=== PATIENT | female | born 1955 | race Caucasian/White ===

== ENCOUNTER → 2018-01-15 07:23 | Outpatient (CLI) | payer MEDICAID, SELFPAY ==
[2018-01-15 08:13] LABS: Alanine Aminotransferase 58 U/L (12-78); Albumin/Globulin Ratio 0.8 (1.1-1.8); Alkaline Phosphatase 135 U/L (46-116); Anion Gap 4.3 mEq/L (5-15); Aspartate Amino Transferase 64 U/L (15-37); Bilirubin,Total 0.5 mg/dL (0.2-1.0); Blood Urea Nitrogen 17 mg/dL (7-18); C-Reactive Protein 0.9 mg/L (0.0-0.9); Calcium 8.4 mg/dL (8.5-10.1); Carbon Dioxide 29 mmol/L (21.0-32.0); Chloride 104 mmol/L (98-107); Creatinine,Serum 1.06 mg/dL (0.55-1.02); Estimated Glomerular Filt Rate 52 ml/min (>60); GFR (African American) 63 ML/MIN (>60); Globulin 3.9 gm/dl (1.3-3.2); Glucose 111 mg/dL (74-106); Potassium 3.3 mmoL/L (3.5-5.1); Sodium 134 mmol/L (136-145); Total Protein,Serum 6.9 gm/dL (6.4-8.2)
[2018-01-15 08:21] LABS: Basophils % 0.6 % (0.1-2.0); Eosinophils # 0.3 K/mm3 (0.0-0.4); Hematocrit 39.9 % (37.0-47.0); Hemoglobin 12.6 g/dL (12.2-16.2); Lymphocytes # 0.8 K/mm3 (0.7-4.5); Lymphocytes % 31.7 K/mm3 (10-50); Mean Corpuscular HGB Conc 31.5 g/dL (31.8-35.4); Mean Corpuscular Hemoglobin 28.3 pg (27.0-31.2); Mean Corpuscular Volume 89.9 fl (81-99); Monocytes # 0.2 K/mm3 (0.1-1.0); Monocytes % 8.2 % (1.7-9.3); Neutrophils # 1.3 K/mm3 (1.8-7.8); Neutrophils % 49.5 % (37.0-80.0); Platelet Count 57 K/mm3 (142-424); Red Blood Count 4.44 M/mm3 (4.20-5.40); Red Cell Distribution Width 15.3 % (11.5-17.5); White Blood Count 2.6 K/mm3 (4.8-10.8)
[2018-01-15 08:58] LABS: Erythrocyte Sedimentation Rate 26 mm/hr (0-30)
--- NOTE | 2018-01-15 09:33 | XR_ITS ---
XR hand RT min 3V HISTORY: ITS.REASON: JOINT PAIN AND SWELLING ORDERING PHYSICIAN: Mildred Pettit PATIENT AGE: 62 years COMPARISON: None FINDINGS: There is flexion of the first metacarpal phalangeal joint. The proximal phalanx is somewhat subluxed medially with osteoarthritic change of the first metacarpal phalangeal joint. The first metacarpal is somewhat abducted. There are osteoarthritic changes of the second metacarpal phalangeal joint and fourth DIP joint. Hypertrophic changes involve the distal ulna and there are osteoarthritic changes of the radiocarpal joint. There is some irregularity of the scaphoid laterally which is nonspecific. No acute hand fracture IMPRESSION: Osteoarthritic changes of the hand with flexion deformity of the first metacarpophalangeal joint and some cortical irregularity of the scaphoid of questionable clinical significance and may be better evaluated with wrist images with scaphoid view if clinically warranted
[2018-01-16 19:23] LABS: RA Latex Turbid. <10.0 IU/mL (0.0-13.9)
[2018-01-18 06:41] LABS: Anti-Cyclic Citrullinated Pept 6 units (0-19); Antinuclear Antibodies, IFA Negative (.)
== END ==
PROVIDERS: PCP Physician Assistant; Visit Provider Physician Assistant
DX: M79.641 Pain in right hand (principal); M25.50 Pain in unspecified joint; M25.40 Effusion, unspecified joint
CPT/HCPCS: 36415; 73130; 80053; 85025; 85651; 86038; 86140; 86200; 86431

== ENCOUNTER → 2018-01-21 13:55 | Outpatient (CLI) | payer MEDICAID, SELFPAY ==
--- NOTE | 2018-01-21 14:11 | XR_ITS ---
XR wrist RT min 3V HISTORY: Pain and swelling ITS.REASON: ABNORMAL SCAPHOID ON HAND X-RAY ORDERING PHYSICIAN: Mildred Pettit PATIENT AGE: 63 years COMPARISON: Radio graph of the hand on 01/15/2018 FINDINGS: There are degenerative changes of the radial ulnar joint with hypertrophic changes of the ulna distally with subcortical cystic change of the distal ulna. Osteoarthritic changes are present involving the radiocarpal joint. Small area of bony hypertrophy involves the mid aspect of the scaphoid laterally. A vague lucency is present in the mid scaphoid region on the oblique view. A scaphoid view was not performed. This lucency could be due to an old nondisplaced fracture versus a mock line there are hypertrophic changes along the dorsal aspect of the wrist both proximally and in the mid aspect of the wrist. IMPRESSION: Osteoarthritic changes of the wrist as described above. Faint lucency of the mid aspect of the scaphoid which could be due to nondisplaced fracture oriented mock line. If there is clinical concern for fracture then, CT may be of further value for confirmation.
--- NOTE | 2018-01-21 15:21 | MM_ITS ---
MM Dig screening mamm BI w/CAD CAD Screening COMPARISON: Digital mammograms 01/16/2017 and 01/12/2016 INDICATION: There is no personal or family history of breast cancer TECHNIQUE: Standard CC and MLO images were obtained. R2 CAD reviewed. FINDINGS: The breasts are closed primarily of fat with minimal scattered fibroglandular densities in each breast. There are few benign-appearing calcifications in each breast. There is a stable benign-appearing nodular density upper outer quadrant right breast. There is no suspicious lesion and there are no suspicious microcalcifications. IMPRESSION: Fibrofatty parenchyma with no suspicious lesion seen BI-RADS Category: 2 Benign Finding(s) RECOMMENDED FOLLOW-UP: 1YR - 1 YEAR FOLLOW-UP (A letter has been sent to the patient regarding results of the study.)
[2018-01-21 15:58] LABS: Anion Gap 13.8 mEq/L (5-15); Blood Urea Nitrogen 20 mg/dL (7-18); Carbon Dioxide 25 mmol/L (21.0-32.0); Chloride 107 mmol/L (98-107); Creatinine,Serum 0.99 mg/dL (0.55-1.02); Estimated Glomerular Filt Rate 56 ml/min (>60); GFR (African American) 68 ML/MIN (>60); Potassium 3.8 mmoL/L (3.5-5.1); Sodium 142 mmol/L (136-145)
[2018-01-21 16:41] LABS: Glucose 101 mg/dL (74-106)
== END ==
PROVIDERS: Visit Provider Physician Assistant
DX: E87.6 Hypokalemia; M25.531 Pain in right wrist; Z12.31 Encounter for screening mammogram for malignant neoplasm of breast
CPT/HCPCS: 36415; 73110; 77067; 80048

== ENCOUNTER → 2018-02-10 09:18 | Outpatient (CLI) | payer MEDICAID, SELFPAY ==
[2018-02-10 09:39] LABS: Basophils % 0.4 % (0.1-2.0); Eosinophils # 0.2 K/mm3 (0.0-0.4); Eosinophils % 8.4 % (0.1-12.0); Hematocrit 35.8 % (37.0-47.0); Hemoglobin 11.6 g/dL (12.2-16.2); Lymphocytes # 0.7 K/mm3 (0.7-4.5); Lymphocytes % 37.3 K/mm3 (10-50); Mean Corpuscular HGB Conc 32.4 g/dL (31.8-35.4); Mean Corpuscular Hemoglobin 28.6 pg (27.0-31.2); Mean Platelet Volume 10.7 fl (7.4-10.4); Monocytes # 0.1 K/mm3 (0.1-1.0); Monocytes % 7.5 % (1.7-9.3); Neutrophils # 0.9 K/mm3 (1.8-7.8); Neutrophils % 46.4 % (37.0-80.0); Platelet Count 54 K/mm3 (142-424); Red Blood Count 4.06 M/mm3 (4.20-5.40); Red Cell Distribution Width 15.5 % (11.5-17.5)
[2018-02-10 09:51] LABS: White Blood Count 1.9 K/mm3 (4.8-10.8)
[2018-02-10 10:28] LABS: Alanine Aminotransferase 57 U/L (12-78); Albumin/Globulin Ratio 0.8 (1.1-1.8); Alkaline Phosphatase 104 U/L (46-116); Anion Gap 10.5 mEq/L (5-15); Aspartate Amino Transferase 71 U/L (15-37); Bilirubin,Total 0.7 mg/dL (0.2-1.0); Blood Urea Nitrogen 23 mg/dL (7-18); Carbon Dioxide 28 mmol/L (21.0-32.0); Chloride 107 mmol/L (98-107); Creatinine,Serum 0.92 mg/dL (0.55-1.02); Estimated Glomerular Filt Rate 61 ml/min (>60); GFR (African American) 74 ML/MIN (>60); Globulin 3.8 gm/dl (1.3-3.2); Potassium 3.5 mmoL/L (3.5-5.1); Sodium 142 mmol/L (136-145); Total Protein,Serum 6.8 gm/dL (6.4-8.2)
[2018-02-10 10:36] LABS: Glucose 100 mg/dL (74-106)
== END ==
PROVIDERS: Visit Provider Internal Medicine
DX: L57.0 Actinic keratosis (principal)
CPT/HCPCS: 36415; 80053; 85025

== ENCOUNTER → 2018-08-17 08:42 | Outpatient (CLI) | payer MEDICAID, SELFPAY ==
[2018-08-17 08:54] LABS: Basophils % 0.6 % (0.1-2.0); Eosinophils # 0.4 K/mm3 (0.0-0.4); Eosinophils % 12.5 % (0.1-12.0); Hematocrit 36.7 % (37.0-47.0); Hemoglobin 11.6 g/dL (12.2-16.2); Lymphocytes % 34.8 K/mm3 (10-50); Mean Corpuscular HGB Conc 31.5 g/dL (31.8-35.4); Mean Corpuscular Hemoglobin 24.9 pg (27.0-31.2); Mean Corpuscular Volume 78.9 fl (81-99); Mean Platelet Volume 10.4 fl (7.4-10.4); Monocytes # 0.2 K/mm3 (0.1-1.0); Monocytes % 7.5 % (1.7-9.3); Neutrophils # 1.2 K/mm3 (1.8-7.8); Neutrophils % 44.6 % (37.0-80.0); Platelet Count 77 K/mm3 (142-424); Red Blood Count 4.66 M/mm3 (4.20-5.40); Red Cell Distribution Width 18.4 % (11.5-17.5); White Blood Count 2.8 K/mm3 (4.8-10.8)
== END ==
PROVIDERS: PCP Physician Assistant; Visit Provider Nurse Practitioner
DX: D61.818 Other pancytopenia (principal); K74.60 Unspecified cirrhosis of liver
CPT/HCPCS: 36415; 85025

== ENCOUNTER → 2018-10-22 07:00 | Outpatient (CLI) | payer MEDICAID, SELFPAY ==
[2018-10-22 07:26] LABS: Basophils % 0.9 % (0.1-2.0); Eosinophils # 0.2 K/mm3 (0.0-0.4); Eosinophils % 9.9 % (0.1-12.0); Hemoglobin 11.6 g/dL (12.2-16.2); Lymphocytes # 0.7 K/mm3 (0.7-4.5); Mean Corpuscular HGB Conc 31.3 g/dL (31.8-35.4); Mean Corpuscular Volume 79.8 fl (81-99); Monocytes # 0.2 K/mm3 (0.1-1.0); Monocytes % 8.4 % (1.7-9.3); Neutrophils # 1.2 K/mm3 (1.8-7.8); Neutrophils % 51.8 % (37.0-80.0); Platelet Count 60 K/mm3 (142-424); Red Blood Count 4.64 M/mm3 (4.20-5.40); Red Cell Distribution Width 17.5 % (11.5-17.5); White Blood Count 2.3 K/mm3 (4.8-10.8)
[2018-10-22 10:52] LABS: Hemoglobin A1C 5.4 % (0.0-7.0)
[2018-10-22 11:28] LABS: Alanine Aminotransferase 56 U/L (12-78); Albumin/Globulin Ratio 0.8 (1.1-1.8); Alkaline Phosphatase 147 U/L (46-116); Anion Gap 13.6 mEq/L (5-15); Aspartate Amino Transferase 66 U/L (15-37); Bilirubin,Total 0.6 mg/dL (0.2-1.0); Blood Urea Nitrogen 19 mg/dL (7-18); Calcium 8.4 mg/dL (8.5-10.1); Carbon Dioxide 27 mmol/L (21.0-32.0); Chloride 104 mmol/L (98-107); Chol/HDL Ratio 2.2 (1-3.5); Cholesterol 149 mg/dL (140-200); Creatinine,Serum 0.92 mg/dL (0.55-1.02); Estimated Glomerular Filt Rate 61 ml/min (>60); GFR (African American) 74 ML/MIN (>60); Globulin 3.8 gm/dl (1.3-3.2); Glucose 102 mg/dL (74-106); HDL Cholesterol 69 mg/dL (29-89); LDL Cholesterol 69 mg/dL (0-130); Potassium 3.6 mmoL/L (3.5-5.1); Sodium 141 mmol/L (136-145); Thyroid Stimulating Hormone 3.06 uIU/ml (0.358-3.740); Total Protein,Serum 6.8 gm/dL (6.4-8.2); Triglycerides 55 mg/dL (30-200); VLDL Cholesterol 11 mg/dL (0-40)
[2018-10-23 13:44] LABS: Vitamin B12 538 pg/mL (232-1245)
== END ==
PROVIDERS: Visit Provider Physician Assistant
DX: I10 Essential (primary) hypertension (principal); E78.5 Hyperlipidemia, unspecified; E66.9 Obesity, unspecified; K75.4 Autoimmune hepatitis
CPT/HCPCS: 36415; 80053; 80061; 82607; 83036; 84443; 85025

== ENCOUNTER → 2019-02-03 09:33 | Outpatient (CLI) | payer MEDICARE, MEDICAID, SELFPAY ==
--- NOTE | 2019-02-03 09:34 | MM_ITS ---
MM Dig screening mamm BI w/CAD CAD Screening COMPARISON: Digital mammograms with CAD 01/16/2017 and 01/21/2018 INDICATION: There is no personal or family history of breast cancer TECHNIQUE: Standard CC and MLO images were obtained. R2 CAD reviewed. FINDINGS: The breasts are composed primarily of fat with scattered fiber glandular densities throughout each breast. There are stable nodular density upper outer quadrant right breast. There are couple mole markers left breast. There are couple of benign-appearing calcifications in each breast. There is no suspicious lesion and there are no suspicious microcalcifications. IMPRESSION: Stable exam no suspicious lesion seen BI-RADS Category: 2 Benign Finding(s) RECOMMENDED FOLLOW-UP: 1YR - 1 YEAR FOLLOW-UP (A letter has been sent to the patient regarding results of the study.)
--- NOTE | 2019-02-03 09:34 | XR_ITS ---
XR DEXA axial skeleton HISTORY: ITS.REASON: SCREENING ORDERING PHYSICIAN: Mynor Barnett MD PATIENT AGE: 64 years COMPARISON: 01/16/2017 FINDINGS: The BMD measured at the AP spine L1-L4 is 1.131 g/cm squared with a T score of -0.4. This is considered Normal according to the World Health Organization criteria. Fracture risk is Low. The mean density of the hips has a T score of 0.3. The lumbar density has decreased by 3.7%. The mean density of the hips has decreased by 5%. IMPRESSION: Normal bone density with low fracture risk. Recommend follow-up exam January 2021
== END ==
PROVIDERS: PCP Physician Assistant; Visit Provider Obstetrics & Gynecology
DX: M81.0 Age-related osteoporosis without current pathological fracture (principal); Z12.31 Encounter for screening mammogram for malignant neoplasm of breast
CPT/HCPCS: 77067; 77080

== ENCOUNTER → 2019-02-19 11:06 | Outpatient (CLI) | payer MEDICARE, MEDICAID, SELFPAY ==
[2019-02-19 11:35] LABS: Basophils % 0.6 % (0.1-2.0); Eosinophils # 0.2 K/mm3 (0.0-0.4); Eosinophils % 5.3 % (0.1-12.0); Hematocrit 35.9 % (37.0-47.0); Hemoglobin 11.2 g/dL (12.2-16.2); Lymphocytes # 1.2 K/mm3 (0.7-4.5); Lymphocytes % 33.5 % (10-50); Mean Corpuscular HGB Conc 31.3 g/dL (31.8-35.4); Mean Corpuscular Hemoglobin 23.5 pg (27.0-31.2); Mean Corpuscular Volume 75.1 fl (81-99); Mean Platelet Volume 11.3 fl (7.4-10.4); Monocytes # 0.3 K/mm3 (0.1-1.0); Monocytes % 7.4 % (1.7-9.3); Neutrophils % 53.2 % (37.0-80.0); Platelet Count 91 K/mm3 (142-424); Red Blood Count 4.78 M/mm3 (4.20-5.40); Red Cell Distribution Width 16.2 % (11.5-17.5); White Blood Count 3.7 K/mm3 (4.8-10.8)
[2019-02-19 12:13] LABS: Alanine Aminotransferase 53 U/L (12-78); Albumin Level 3.2 gm/dL (3.4-5.0); Albumin/Globulin Ratio 0.8 (1.1-1.8); Alkaline Phosphatase 110 U/L (46-116); Anion Gap 15.5 mEq/L (5-15); Aspartate Amino Transferase 61 U/L (15-37); Bilirubin,Total 0.8 mg/dL (0.2-1.0); Blood Urea Nitrogen 20 mg/dL (7-18); Calcium 9.1 mg/dL (8.5-10.1); Carbon Dioxide 25 mmol/L (21.0-32.0); Chloride 105 mmol/L (98-107); Estimated Glomerular Filt Rate 45 ml/min (>60); GFR (African American) 55 ML/MIN (>60); Potassium 3.5 mmoL/L (3.5-5.1); Sodium 142 mmol/L (136-145); Total Protein,Serum 7.2 gm/dL (6.4-8.2)
[2019-02-19 12:35] LABS: Glucose 101 mg/dL (74-106)
== END ==
PROVIDERS: Visit Provider Internal Medicine Medical Oncology
DX: D61.818 Other pancytopenia (principal)
CPT/HCPCS: 36415; 80053; 85025

== ENCOUNTER → 2019-03-16 09:36 | Outpatient (CLI) | payer MEDICARE, MEDICAID, SELFPAY ==
[2019-03-16 09:55] LABS: Basophils % 0.6 % (0.1-2.0); Eosinophils # 0.1 K/mm3 (0.0-0.4); Eosinophils % 8.3 % (0.1-12.0); Hematocrit 31.7 % (37.0-47.0); Hemoglobin 9.9 g/dL (12.2-16.2); Lymphocytes # 0.6 K/mm3 (0.7-4.5); Lymphocytes % 38.1 % (10-50); Mean Corpuscular HGB Conc 31.2 g/dL (31.8-35.4); Mean Corpuscular Hemoglobin 23.8 pg (27.0-31.2); Mean Corpuscular Volume 76.1 fl (81-99); Mean Platelet Volume 10.9 fl (7.4-10.4); Monocytes # 0.1 K/mm3 (0.1-1.0); Monocytes % 6.1 % (1.7-9.3); Neutrophils # 0.7 K/mm3 (1.8-7.8); Neutrophils % 46.9 % (37.0-80.0); Platelet Count 56 K/mm3 (142-424); Red Blood Count 4.16 M/mm3 (4.20-5.40); Red Cell Distribution Width 17.3 % (11.5-17.5); White Blood Count 1.5 K/mm3 (4.8-10.8)
[2019-03-16 10:51] LABS: Alanine Aminotransferase 45 U/L (12-78); Albumin Level 2.8 gm/dL (3.4-5.0); Albumin/Globulin Ratio 0.7 (1.1-1.8); Alkaline Phosphatase 109 U/L (46-116); Anion Gap 10.7 mEq/L (5-15); Aspartate Amino Transferase 59 U/L (15-37); Bilirubin,Total 0.5 mg/dL (0.2-1.0); Blood Urea Nitrogen 23 mg/dL (7-18); Calcium 8.6 mg/dL (8.5-10.1); Carbon Dioxide 28 mmol/L (21.0-32.0); Chloride 106 mmol/L (98-107); Chol/HDL Ratio 2.3 (1-3.5); Cholesterol 144 mg/dL (140-200); Creatinine,Serum 0.91 mg/dL (0.55-1.02); Estimated Glomerular Filt Rate 62 ml/min (>60); GFR (African American) 75 ML/MIN (>60); Glucose 98 mg/dL (74-106); HDL Cholesterol 62 mg/dL (29-89); LDL Cholesterol 73 mg/dL (0-130); Potassium 3.7 mmoL/L (3.5-5.1); Sodium 141 mmol/L (136-145); Total Protein,Serum 6.8 gm/dL (6.4-8.2); Triglycerides 47 mg/dL (30-200); VLDL Cholesterol 9 mg/dL (0-40)
[2019-03-16 12:29] LABS: Hemoglobin A1C 5.2 % (0.0-7.0)
== END ==
PROVIDERS: Visit Provider Nurse Practitioner Family
DX: E78.5 Hyperlipidemia, unspecified (principal); I10 Essential (primary) hypertension; Z79.899 Other long term (current) drug therapy
CPT/HCPCS: 36415; 80053; 80061; 83036; 85025

== ENCOUNTER → 2019-04-01 07:59 | Outpatient (CLI) | payer MEDICARE, MEDICAID, SELFPAY ==
[2019-04-01 08:21] LABS: Blood Urea Nitrogen 15 mg/dL (7-18); Creatinine,Serum 0.94 mg/dL (0.55-1.02); Estimated Glomerular Filt Rate 60 ml/min (>60); GFR (African American) 72 ML/MIN (>60)
--- NOTE | 2019-04-01 08:47 | CT_ITS ---
CT chest w con HISTORY: ITS.REASON: PANCYSTOPENIA ORDERING PHYSICIAN: Jenny Franco MD PATIENT AGE: 64 years COMPARISON: 12/26/2016 TECHNIQUE: Axial images obtained following the administration of 75 mL of Optiray 350 . Sagittal, and coronal reformatted images are also generated and reviewed. All CT scans at the facility use one or more dose reduction, viz: automated exposure control, ma/kV adjustment per patient size (including targeted exams where dose is matched to indication, i.e. head), or iterative reconstruction technique. FINDINGS: No evidence of aortic aneurysm or central pulmonary embolus. There are numerous lobular soft tissue densities in the para esophageal region in the lower thorax. These are secondary to esophageal varices better demonstrated on the delayed enhanced abdomen images. No mediastinal or hilar adenopathy is evident. There are fibrotic changes in the right upper lobe and right middle lobe. Calcified granuloma is present in the right middle lobe. Moderate fibrotic changes are present in the lingula.. No suspicious pulmonary nodules are evident areas no significant change from 12/26/2016. No acute bony findings are evident. IMPRESSION: 1. Prominent periesophageal varices 2. Scattered fibrotic changes with old granulomatous disease. 3. No change with no acute finding
--- NOTE | 2019-04-01 08:47 | CT_ITS ---
CT abdomen pelvis w con CLINICAL INDICATION: ITS.REASON: PANCYSTOPENIA ORDERING PHYSICIAN: Jenny Franco MD PATIENT AGE: 64 years COMPARISON: 09/08/2015 TECHNIQUE: Axial images obtained with sagittal and coronal reformats. All CT scans at the facility use one or more dose reduction, viz: automated exposure control, ma/kV adjustment per patient size (including targeted exams where dose is matched to indication, i.e. head), or iterative reconstruction technique. PROCEDURE: Oral Contrast: Redicat IV Contrast: 75 mL's Optiray 350. FINDINGS: There are prominent periesophageal varices along the lower aspect of the esophagus and gastroesophageal junction. Prominent upper abdominal varices also noted. There is splenomegaly at 14 cm. The liver has an irregular appearance consistent with cirrhosis. Mild amount of ascites. Enlarged splenic vein, superior mesenteric vein, and portal vein. The pancreas, adrenal glands, and kidneys have an unremarkable appearance. There is thickening of the stomach and lower region which may be due to nondistention. There is a moderate amount of fluid around the gallbladder. There is a prominent umbilical hernia which contains edematous appearing mesenteric fat and a moderate amount of fluid. No evidence of appendicitis or diverticulitis. No pelvic mass apparent. Fluid is present in the pelvis. No evidence of intestinal obstruction or free air. The colon is thickened which may be due to colonic hepatopathy. There is grade 1-2 spondylitic spondylolisthesis of L5 on S1 with degenerative disc disease at that level. IMPRESSION: 1. Cirrhosis with ascites, splenomegaly, portal hypertension, and periesophageal and upper abdominal varices. 2. Moderate-sized umbilical hernia containing edematous fat and ascites. 3. Suspect colonic hepatopathy
== END ==
PROVIDERS: Visit Provider Internal Medicine Medical Oncology
DX: D61.818 Other pancytopenia (principal)
CPT/HCPCS: 36415; 71260; 74177; 82565; 84520; Q9967

== ENCOUNTER → 2019-04-07 08:24 | Outpatient (CLI) | payer MEDICARE, MEDICAID, SELFPAY ==
[2019-04-07 08:52] LABS: Prothrombin Time 11.4 seconds (9.4-11.8)
== END ==
PROVIDERS: Visit Provider Surgery
DX: R10.9 Unspecified abdominal pain (principal)
CPT/HCPCS: 36415; 85610

== ENCOUNTER 2019-04-08 06:09 | Day surgery (SDC) | payer MEDICARE, MEDICAID, SELFPAY ==
[2019-04-06 13:51] VITALS: BMI 34.6
[2019-04-08] VITALS (7 sets, daily range): BP systolic 102–172; BP diastolic 51–86; PULSE 74–89; RESP 16–20; TEMP 36.1–36.8; O2SAT 94–100
--- NOTE | 2019-04-08 07:17 | HMH.ANESCL ---
[facility] Anesthesia Checklist - Patient Identification Patient Identification: Arm Band, Verbal (Name & ) - Structural Data Admitted From: Home Planned Operative Procedure/s: EGD/Colonoscopy Consent for Planned Operative Procedure(s) Verified: Yes Verified Documents: Surgical Consent, History and Physical - NPO Status Verified Time NPO: 00:00 - Additional verifications Patient : No Anesthesia Reactions: No - Airway Assessment C-Spine Mobility Assessed: Yes TMJ Mobility Assessed: Yes Dentition: Poor Dentition - Neurological Assessment Level of Consciousness: Awake, Alert, Appropriate, Follows Commands Hx Seizures: No Numbness or tingling in extremities: No - Anesthesia Plan Anesthesia Risk discussed: Yes Anesthesia Plan: Verified ASA Class: II Anesthesia Type: MAC [facility] History I have reviewed the patient's past medical history: Yes Medical History: Reports:: Hepatitis, Hypertension, Osteoporosis Denies:: Diabetes Mellitus Type 1, Diabetes Mellitus Type 2, Internal Pacemaker, Lung Disease, Seizures *Have you ever received a pneumonia vaccine?: No *Have you received a flu vaccine this season?: Yes Other Medical History: Reports: Osteoporosis, Other Other Surgeries: Yes: Colonoscopy, Other. No: Pacemaker Amputation: No Fractures: Yes - *Social History Smoking Status: Never smoker Alcohol Intake: never Alcohol Intake Frequency:: other Substance Use Type: denies use *Occupational Status:: unemployed Housing: apartment Household Members: spouse *Travel in the last 8 weeks: None (unknown) Family Hx:: Hypertension, Cancer PULP MAKER history: No PULP MAKER history
--- NOTE | 2019-04-08 07:22 | P.PN_ITS ---
[facility] Anesthesia Checklist - Patient Identification Patient Identification: Arm Band, Verbal (Name & ) - Structural Data Admitted From: Home Planned Operative Procedure/s: EGD/Colonoscopy Consent for Planned Operative Procedure(s) Verified: Yes Verified Documents: Surgical Consent, History and Physical - NPO Status Verified Time NPO: 00:00 - Additional verifications Patient : No Anesthesia Reactions: No - Airway Assessment C-Spine Mobility Assessed: Yes TMJ Mobility Assessed: Yes Dentition: Poor Dentition - Neurological Assessment Level of Consciousness: Awake, Alert, Appropriate, Follows Commands Hx Seizures: No Numbness or tingling in extremities: No - Anesthesia Plan Anesthesia Risk discussed: Yes Anesthesia Plan: Verified ASA Class: II Anesthesia Type: MAC [facility] History I have reviewed the patient's past medical history: Yes Medical History: Reports:: Hepatitis, Hypertension, Osteoporosis Denies:: Diabetes Mellitus Type 1, Diabetes Mellitus Type 2, Internal Pacemaker, Lung Disease, Seizures *Have you ever received a pneumonia vaccine?: No *Have you received a flu vaccine this season?: Yes Other Medical History: Reports: Osteoporosis, Other Other Surgeries: Yes: Colonoscopy, Other. No: Pacemaker Amputation: No Fractures: Yes - *Social History Smoking Status: Never smoker Alcohol Intake: never Alcohol Intake Frequency:: other Substance Use Type: denies use *Occupational Status:: unemployed Housing: apartment Household Members: spouse *Travel in the last 8 weeks: None (unknown) Family Hx:: Hypertension, Cancer MEDICAL COLLECTIONS SPECIALIST history: No MEDICAL COLLECTIONS SPECIALIST history
--- NOTE | 2019-04-08 08:07 | HMH.SCOPE ---
- Procedure: Date: 04/08/19 Procedure Performed:: Esophagogastroduodenoscopy with biopsy Colonoscopy with polypectomy Indications:: Nausea/vomiting Screening colonoscopy Performing Provider:: Nader Duran MD Referring Provider:: Dr. Franco Sedation:: Monitored anesthesia care Procedure:: After informed consent was obtained the patient was taken to the endoscopy suite. Sedation ensued after the patient was transferred to the left lateral decubitus position. Pulse, blood pressure, and oxygen saturation were monitored throughout the procedure. The endoscope was advanced beyond the duodenal bulb. Retroflexion within the gastric lumen was accomplished. The gastroscope was carefully removed. Digital rectal exam revealed no significant abnormality. The colonoscope was placed in position. The entire colon was evaluated. The colonoscope was carefully removed and the patient was transferred to recovery in stable condition. Please see findings and specimens below for detail. Findings:: Gastroesophageal junction at 35 cm Small sliding hiatal hernia Gastroduodenitis Antral ulcerations Bowel preparation poor for colonoscopy Fairly significant lack of relaxation/spasticity Internal/external hemorrhoids with fairly large cushions with no sign of bleeding or thrombosis Complex polyps (see specimens) Specimens:: Antral ulcerations Complex sessile polyp at 25 cm and adjacent polyp Lobulated complex sessile polyp at 35 cm Recommendations:: Follow-up pending pathology Fairly short-term repeat colonoscopy with extended bowel preparation Consideration of barium enema if visualization not greatly improved on repeat colonoscopy Complications:: No immediate with the exception of poor bowel preparation Estimated blood obtained (mL): 1
== END 2019-04-08 08:42 | disposition home or self-care (01) ==
LOC: OUTP 06:13
PROVIDERS: PCP Nurse Practitioner Family; Visit Provider Surgery
PROC: 0DJ08ZZ Inspection of Upper Intestinal Tract, Via Natural or Artificial Opening Endoscopic (ICD-10-PCS; CPT 43235; principal; 2019-04-08 07:30)
DX: Z12.11 Encounter for screening for malignant neoplasm of colon; K58.9 Irritable bowel syndrome, unspecified; K63.5 Polyp of colon; K64.9 Unspecified hemorrhoids; K44.9 Diaphragmatic hernia without obstruction or gangrene; K29.90 Gastroduodenitis, unspecified, without bleeding; K25.9 Gastric ulcer, unspecified as acute or chronic, without hemorrhage or perforation
CPT/HCPCS: 45380; 43239

== ENCOUNTER → 2019-04-16 08:27 | Outpatient (CLI) | payer MEDICARE, MEDICAID, SELFPAY ==
--- NOTE | 2019-04-16 08:34 | FL_ITS ---
FL barium swallow COMPARISON: CT scan abdomen pelvis 04/01/2019 with IV and oral contrast HISTORY: Pancytopenia, weight loss, dysphagia TECHNIQUE: Fluoroscopy while drinking barium FINDINGS: The swallowing mechanism is normal. Spot films of the cervical esophagus show no evident amount. However there are prominent and diffuse esophageal varices involving the lower half of the esophagus. There is somewhat poor primary peristalsis with a few tertiary contractions noted. There is a small sliding hiatal hernia with somewhat poor emptying of barium from the lower esophagus but there is no significant GE reflux seen during the study. IMPRESSION: No abnormality of the swallowing mechanism or cervical esophagus but there are prominent and diffuse esophageal varices of the lower half of the esophagus associated with the small sliding hiatal hernia. The fluoroscopic time was 3.2 minutes
== END ==
PROVIDERS: PCP Nurse Practitioner Family; Visit Provider Surgery
DX: R13.10 Dysphagia, unspecified (principal)
CPT/HCPCS: 74220

== ENCOUNTER → 2019-05-20 08:41 | Outpatient (CLI) | payer MEDICARE, MEDICAID, SELFPAY ==
[2019-05-20 09:36] LABS: Eosinophils # 0.1 K/mm3 (0.0-0.4); Eosinophils % 8.4 % (0.1-12.0); Hematocrit 34.3 % (37.0-47.0); Hemoglobin 9.9 g/dL (12.2-16.2); Lymphocytes # 0.4 K/mm3 (0.7-4.5); Lymphocytes % 28.4 % (10-50); Mean Corpuscular HGB Conc 28.9 g/dL (31.8-35.4); Mean Corpuscular Hemoglobin 23.4 pg (27.0-31.2); Mean Platelet Volume 9.9 fl (7.4-10.4); Monocytes # 0.1 K/mm3 (0.1-1.0); Monocytes % 6.7 % (1.7-9.3); Neutrophils # 0.8 K/mm3 (1.8-7.8); Neutrophils % 54.4 % (37.0-80.0); Platelet Count 53 K/mm3 (142-424); Red Blood Count 4.24 M/mm3 (4.20-5.40); Red Cell Distribution Width 18.6 % (11.5-17.5); White Blood Count 1.4 K/mm3 (4.8-10.8)
[2019-05-20 11:59] LABS: Alanine Aminotransferase 67 U/L (12-78); Albumin Level 2.5 gm/dL (3.4-5.0); Albumin/Globulin Ratio 0.6 (1.1-1.8); Alkaline Phosphatase 152 U/L (46-116); Anion Gap 8.6 mEq/L (5-15); Aspartate Amino Transferase 86 U/L (15-37); Bilirubin,Total 0.7 mg/dL (0.2-1.0); Blood Urea Nitrogen 18 mg/dL (7-18); Calcium 8.4 mg/dL (8.5-10.1); Carbon Dioxide 29 mmol/L (21.0-32.0); Chloride 107 mmol/L (98-107); Creatinine,Serum 0.88 mg/dL (0.55-1.02); Estimated Glomerular Filt Rate 64 ml/min (>60); GFR (African American) 78 ML/MIN (>60); Globulin 3.9 gm/dl (1.3-3.2); Potassium 3.6 mmoL/L (3.5-5.1); Sodium 141 mmol/L (136-145); Total Protein,Serum 6.4 gm/dL (6.4-8.2)
[2019-05-20 14:20] LABS: Glucose 97 mg/dL (74-106)
== END ==
PROVIDERS: Visit Provider Internal Medicine Medical Oncology
DX: D61.818 Other pancytopenia (principal)
CPT/HCPCS: 36415; 80053; 85025

== ENCOUNTER → 2019-07-29 08:06 | Outpatient (CLI) | payer MEDICARE, MEDICAID, SELFPAY ==
[2019-07-29 08:36] LABS: Basophils % 0.8 % (0.1-2.0); Eosinophils # 0.2 K/mm3 (0.0-0.4); Eosinophils % 10.6 % (0.1-12.0); Hematocrit 32.8 % (37.0-47.0); Hemoglobin 9.9 g/dL (12.2-16.2); Lymphocytes # 0.5 K/mm3 (0.7-4.5); Lymphocytes % 34.6 % (10-50); Mean Corpuscular HGB Conc 30.4 g/dL (31.8-35.4); Mean Corpuscular Hemoglobin 23.8 pg (27.0-31.2); Mean Corpuscular Volume 78.5 fl (81-99); Monocytes # 0.1 K/mm3 (0.1-1.0); Monocytes % 5.6 % (1.7-9.3); Neutrophils # 0.7 K/mm3 (1.8-7.8); Neutrophils % 48.5 % (37.0-80.0); Red Blood Count 4.17 M/mm3 (4.20-5.40); Red Cell Distribution Width 16.9 % (11.5-17.5); White Blood Count 1.4 K/mm3 (4.8-10.8)
[2019-07-29 09:34] LABS: Platelet Count 46 K/mm3 (142-424)
[2019-07-29 09:55] VITALS: BMI 38.1
[2019-07-29 10:07] LABS: Alanine Aminotransferase 56 U/L (12-78); Albumin Level 2.8 gm/dL (3.4-5.0); Albumin/Globulin Ratio 0.7 (1.1-1.8); Alkaline Phosphatase 127 U/L (46-116); Anion Gap 10.5 mEq/L (5-15); Aspartate Amino Transferase 84 U/L (15-37); Bilirubin,Total 0.6 mg/dL (0.2-1.0); Blood Urea Nitrogen 18 mg/dL (7-18); Calcium 8.6 mg/dL (8.5-10.1); Carbon Dioxide 28 mmol/L (21.0-32.0); Chloride 105 mmol/L (98-107); Creatinine Clearance Estimated 68 mL/min (50-200); Creatinine,Serum 0.77 mg/dL (0.55-1.02); Estimated Glomerular Filt Rate 75 ml/min (>60); GFR (African American) 91 ML/MIN (>60); Globulin 3.9 gm/dl (1.3-3.2); Glucose 99 mg/dL (74-106); Potassium 3.5 mmoL/L (3.5-5.1); Sodium 140 mmol/L (136-145); Total Protein,Serum 6.7 gm/dL (6.4-8.2)
[2019-07-30 09:29] LABS: Iron 35 ug/dL (27-139); UIBC 301 ug/dL (118-369)
[2019-07-30 16:54] LABS: Iron Saturation 10 % (15-55)
== END ==
PROVIDERS: Visit Provider Internal Medicine Medical Oncology
DX: D64.9 Anemia, unspecified (principal)
CPT/HCPCS: 36415; 80053; 83540; 83550; 85025

== ENCOUNTER → 2019-12-31 10:24 | Outpatient (CLI) | payer MEDICARE, MEDICAID, SELFPAY ==
[2019-12-31 11:26] LABS: Basophils % 0.7 % (0.1-2.0); Eosinophils # 0.2 K/mm3 (0.0-0.4); Eosinophils % 9.9 % (0.1-12.0); Hematocrit 33.8 % (37.0-47.0); Hemoglobin 10.8 g/dL (12.2-16.2); Lymphocytes # 0.6 K/mm3 (0.7-4.5); Lymphocytes % 29.1 % (10-50); Mean Corpuscular HGB Conc 31.9 g/dL (31.8-35.4); Mean Corpuscular Hemoglobin 27.4 pg (27.0-31.2); Mean Corpuscular Volume 86.1 fl (81-99); Mean Platelet Volume 9.5 fl (7.4-10.4); Monocytes # 0.1 K/mm3 (0.1-1.0); Monocytes % 7.3 % (1.7-9.3); Neutrophils # 1.1 K/mm3 (1.8-7.8); Platelet Count 59 K/mm3 (142-424); Red Blood Count 3.92 M/mm3 (4.20-5.40); Red Cell Distribution Width 15.2 % (11.5-17.5)
[2019-12-31 12:40] LABS: Chloride 106 mmol/L (98-107)
[2019-12-31 12:41] LABS: Potassium 3.6 mmoL/L (3.5-5.1); Sodium 139 mmol/L (136-145)
[2019-12-31 12:43] LABS: Alanine Aminotransferase 45 U/L (12-78); Aspartate Amino Transferase 70 U/L (14-36); Blood Urea Nitrogen 18 mg/dl (7-17); Estimated Glomerular Filt Rate 63 ml/min (>60); GFR (African American) 76 ML/MIN (>60)
[2019-12-31 12:44] LABS: Alkaline Phosphatase 101 U/L (38-126); Anion Gap 9.6 mEq/L (5-15); Bilirubin,Total 0.7 mg/dl (0.2-1.3); Calcium 8.9 mg/dl (8.4-10.2); Carbon Dioxide 27 mmol/L (22.0-30.0); Globulin 3.1 g/dL (1.3-3.2); Glucose 89 mg/dl (74-100); Total Protein,Serum 6.1 g/dl (6.3-8.2)
[2019-12-31 13:25] LABS: Ferritin 21.8 ng/ml (11.1-264)
[2020-01-01 03:39] LABS: Iron 42 ug/dL (27-139); UIBC 205 ug/dL (118-369)
[2020-01-01 07:04] LABS: Iron Saturation 17 % (15-55)
== END ==
PROVIDERS: Visit Provider Internal Medicine Medical Oncology
DX: D69.6 Thrombocytopenia, unspecified (principal)
CPT/HCPCS: 36415; 80053; 82728; 83540; 83550; 85025

== ENCOUNTER → 2020-03-30 11:50 | Outpatient (CLI) | payer MEDICARE, MEDICAID, SELFPAY ==
[2020-03-30 12:36] LABS: Basophils % 0.7 % (0.1-2.0); Eosinophils # 0.4 K/mm3 (0.0-0.4); Eosinophils % 12.8 % (0.1-12.0); Hematocrit 42.2 % (37.0-47.0); Lymphocytes # 0.8 K/mm3 (0.7-4.5); Mean Corpuscular HGB Conc 30.7 g/dL (31.8-35.4); Mean Corpuscular Volume 87.8 fl (81-99); Mean Platelet Volume 10.1 fl (7.4-10.4); Monocytes # 0.2 K/mm3 (0.1-1.0); Monocytes % 7.5 % (1.7-9.3); Neutrophils # 1.4 K/mm3 (1.8-7.8); Platelet Count 61 K/mm3 (142-424); Red Blood Count 4.81 M/mm3 (4.20-5.40); Red Cell Distribution Width 16.2 % (11.5-17.5); White Blood Count 2.8 K/mm3 (4.8-10.8)
[2020-03-30 12:51] LABS: Chloride 104 mmol/L (98-107); Sodium 136 mmol/L (136-145)
[2020-03-30 12:53] LABS: Blood Urea Nitrogen 21 mg/dl (7-17); Estimated Glomerular Filt Rate 72 ml/min (>60); GFR (African American) 87 ML/MIN (>60)
[2020-03-30 12:54] LABS: Alanine Aminotransferase 51 U/L (12-78); Albumin Level 3.2 g/dl (3.5-5.0); Albumin/Globulin Ratio 0.9 (1.1-1.8); Alkaline Phosphatase 163 U/L (38-126); Aspartate Amino Transferase 82 U/L (14-36); Calcium 9.2 mg/dl (8.4-10.2); Carbon Dioxide 27 mmol/L (22.0-30.0); Globulin 3.4 g/dL (1.3-3.2); Glucose 92 mg/dl (74-100); Total Protein,Serum 6.6 g/dl (6.3-8.2)
[2020-03-30 13:30] LABS: Ferritin 24.8 ng/ml (11.1-264)
[2020-03-31 04:09] LABS: Iron 71 ug/dL (27-139); UIBC 232 ug/dL (118-369)
[2020-03-31 05:37] LABS: Iron Saturation 23 % (15-55)
== END ==
PROVIDERS: Visit Provider Internal Medicine Medical Oncology
DX: D50.9 Iron deficiency anemia, unspecified (principal)
CPT/HCPCS: 36415; 80053; 82728; 83540; 83550; 85025

== ENCOUNTER → 2020-09-28 10:16 | Outpatient (CLI) | payer MEDICARE, SELFPAY ==
[2020-09-28 10:45] LABS: Basophils % 1.2 % (0.1-2.0); Eosinophils # 0.2 K/mm3 (0.0-0.4); Eosinophils % 6.6 % (0.1-12.0); Hematocrit 43.7 % (37.0-47.0); Hemoglobin 14.6 g/dL (12.2-16.2); Lymphocytes # 0.7 K/mm3 (0.7-4.5); Lymphocytes % 30.1 % (10-50); Mean Corpuscular HGB Conc 33.5 g/dL (31.8-35.4); Mean Corpuscular Hemoglobin 29.9 pg (27.0-31.2); Mean Corpuscular Volume 89.4 fl (81-99); Mean Platelet Volume 8.8 fl (7.4-10.4); Monocytes # 0.1 K/mm3 (0.1-1.0); Monocytes % 5.7 % (1.7-9.3); Neutrophils # 1.4 K/mm3 (1.8-7.8); Neutrophils % 56.4 % (37.0-80.0); Red Blood Count 4.89 M/mm3 (4.20-5.40); Red Cell Distribution Width 15.5 % (11.5-17.5); White Blood Count 2.4 K/mm3 (4.8-10.8)
[2020-09-28 10:55] LABS: Platelet Count 45 K/mm3 (142-424)
[2020-09-28 11:59] LABS: Chloride 101 mmol/L (98-107); Potassium 3.8 mmoL/L (3.5-5.1); Sodium 135 mmol/L (136-145)
[2020-09-28 12:02] LABS: Alanine Aminotransferase 70 U/L (12-78); Albumin Level 3.5 g/dl (3.5-5.0); Alkaline Phosphatase 149 U/L (38-126); Anion Gap 7.8 mEq/L (5-15); Aspartate Amino Transferase 112 U/L (14-36); Bilirubin,Total 1.3 mg/dl (0.2-1.3); Blood Urea Nitrogen 16 mg/dl (7-17); Carbon Dioxide 30 mmol/L (22.0-30.0); Estimated Glomerular Filt Rate 72 ml/min (>60); GFR (African American) 87 ML/MIN (>60); Globulin 3.6 g/dL (1.3-3.2); Glucose 95 mg/dl (74-100); Iron 80 ug/dL (37-170); Total Protein,Serum 7.1 g/dl (6.3-8.2)
[2020-09-28 12:11] LABS: Total Iron Binding Capacity 288 ug/dL (265-497)
[2020-09-28 12:38] LABS: Ferritin 67.8 ng/ml (11.1-264)
== END ==
PROVIDERS: Visit Provider Internal Medicine Medical Oncology
DX: D50.9 Iron deficiency anemia, unspecified (principal)
CPT/HCPCS: 36415; 80053; 82728; 83540; 83550; 85025

== ENCOUNTER → 2021-03-15 08:14 | Outpatient (CLI) | payer MEDICARE, SELFPAY ==
[2021-03-15 08:37] LABS: Basophils % 0.7 % (0.1-2.0); Eosinophils # 0.2 K/mm3 (0.0-0.4); Eosinophils % 10.9 % (0.1-12.0); Hematocrit 38.3 % (37.0-47.0); Hemoglobin 13.1 g/dL (12.2-16.2); Lymphocytes # 0.7 K/mm3 (0.7-4.5); Mean Corpuscular HGB Conc 34.2 g/dL (31.8-35.4); Mean Corpuscular Hemoglobin 29.3 pg (27.0-31.2); Mean Corpuscular Volume 85.8 fl (81-99); Mean Platelet Volume 8.5 fl (7.4-10.4); Monocytes # 0.1 K/mm3 (0.1-1.0); Monocytes % 5.3 % (1.7-9.3); Neutrophils # 1.1 K/mm3 (1.8-7.8); Neutrophils % 51.1 % (37.0-80.0); Platelet Count 53 K/mm3 (142-424); Red Blood Count 4.46 M/mm3 (4.20-5.40); Red Cell Distribution Width 15.9 % (11.5-17.5); White Blood Count 2.1 K/mm3 (4.8-10.8)
[2021-03-15 09:08] LABS: Chloride 105 mmol/L (98-107); Potassium 3.1 mmoL/L (3.5-5.1); Sodium 137 mmol/L (136-145)
[2021-03-15 09:10] LABS: Alanine Aminotransferase 49 U/L (12-78); Alkaline Phosphatase 109 U/L (38-126); Anion Gap 9.1 mEq/L (5-15); Aspartate Amino Transferase 92 U/L (14-36); Bilirubin,Total 1.3 mg/dl (0.2-1.3); Blood Urea Nitrogen 22 mg/dl (7-17); Carbon Dioxide 26 mmol/L (22.0-30.0); Estimated Glomerular Filt Rate 62 ml/min (>60); GFR (African American) 76 ML/MIN (>60)
[2021-03-15 09:11] LABS: Albumin Level 3.3 g/dl (3.5-5.0); Calcium 9.2 mg/dl (8.4-10.2); Globulin 3.3 g/dL (1.3-3.2); Glucose 98 mg/dl (74-100); Iron 95 ug/dL (37-170); Total Protein,Serum 6.6 g/dl (6.3-8.2)
[2021-03-15 09:20] LABS: Total Iron Binding Capacity 253 ug/dL (265-497)
[2021-03-15 09:45] LABS: Ferritin 47.9 ng/ml (11.1-264)
== END ==
PROVIDERS: Visit Provider Internal Medicine Medical Oncology
DX: D64.9 Anemia, unspecified (principal)
CPT/HCPCS: 36415; 80053; 82728; 83540; 83550; 85025

== ENCOUNTER → 2021-04-25 08:42 | Outpatient (CLI) | payer MEDICARE, SELFPAY ==
[2021-04-25 11:14] LABS: Alanine Aminotransferase 47 U/L (12-78); Albumin Level 3.1 g/dl (3.5-5.0); Alkaline Phosphatase 122 U/L (38-126); Anion Gap 4.5 mEq/L (5-15); Aspartate Amino Transferase 80 U/L (14-36); Bilirubin,Total 1.1 mg/dl (0.2-1.3); Blood Urea Nitrogen 18 mg/dl (7-17); Carbon Dioxide 30 mmol/L (22.0-30.0); Chloride 105 mmol/L (98-107); Chol/HDL Ratio 2.1 (1-3.5); Cholesterol 134 mg/dl (140-200); Estimated Glomerular Filt Rate 72 ml/min (>60); GFR (African American) 87 ML/MIN (>60); Globulin 3.2 g/dL (1.3-3.2); Glucose 92 mg/dl (74-100); HDL Cholesterol 63 mg/dl (40-60); Potassium 3.5 mmoL/L (3.5-5.1); Sodium 136 mmol/L (136-145); Total Protein,Serum 6.3 g/dl (6.3-8.2); Triglycerides 63 mg/dl (30-150); VLDL Cholesterol 13 mg/dL (0-40)
[2021-04-25 11:25] LABS: Direct LDL Cholesterol 40.68 mg/dL (100-129)
== END ==
PROVIDERS: Visit Provider Nurse Practitioner Family
DX: I10 Essential (primary) hypertension (principal)
CPT/HCPCS: 36415; 80053; 80061

== ENCOUNTER 2021-06-28 11:57 | Observation (INO) | payer MEDICARE, SELFPAY ==
[2021-06-28] VITALS (19 sets, daily range): BP systolic 87–158; BP diastolic 37–96; PULSE 76–110; RESP 16–26; TEMP 36.8; O2SAT 93–100; BMI 50.9; BMI 35.1
--- NOTE | 2021-06-28 12:30 | HMH.EDGENADL ---
ED Disposition Clinical Impression: Hematemesis Qualifiers: Nausea presence: with nausea Qualified Code(s): K92.0 - Hematemesis Esophageal varices with bleeding Qualifiers: Esophageal varices type: secondary Qualified Code(s): I85.11 - Secondary esophageal varices with bleeding Disposition: Admitted As Inpatient Condition on Discharge: Serious Referrals: Christine Blair APRN [Primary Care Provider] - - Critical Care Critical Care Time: No Attestation: On 06/28/21, the high probability of a clinically significant, sudden or life threatening deterioration of the following system(s) required my full and direct attention, intervention and personal management. The time I documented below is in addition to time spent performing reported procedures but includes the following listed in this critical care notation. Medical Decision Making - Yogesh Inquiry Pt receiving controlled substance: No Vital Signs: 06/28/21 11:58 06/28/21 12:45 06/28/21 13:25 Temperature 98.2 F Temperature Source Oral Pulse Rate 91 H 93 H Pulse Rate [Left Radial] Pulse Rate [Right Radial] 98 H Respiratory Rate 18 18 18 Blood Pressure 106/56 L 87/51 L Blood Pressure [Orthostatic Lying] Blood Pressure [Orthostatic Sitting] Blood Pressure [Right Arm] 127/67 Blood Pressure Mean Blood Pressure Mean [Right Arm] 87 Blood Pressure Source [Right Arm] Automatic Cuff Blood Pressure Position [Right Arm] Sitting 02 Sat by Pulse Oximetry 96 96 96 Oxygen Delivery Method Room Air 06/28/21 13:27 06/28/21 13:45 06/28/21 14:00 Temperature Temperature Source Pulse Rate 92 H 93 H Pulse Rate [Left Radial] Pulse Rate [Right Radial] Respiratory Rate 18 Blood Pressure 108/52 L 114/60 106/54 L Blood Pressure [Orthostatic Lying] Blood Pressure [Orthostatic Sitting] Blood Pressure [Right Arm] Blood Pressure Mean 58 Blood Pressure Mean [Right Arm] Blood Pressure Source [Right Arm] Blood Pressure Position [Right Arm] 02 Sat by Pulse Oximetry 95 100 Oxygen Delivery Method 06/28/21 14:09 06/28/21 14:17 06/28/21 14:31 Temperature Temperature Source Pulse Rate 83 Pulse Rate [Left Radial] 93 H 95 H Pulse Rate [Right Radial] Respiratory Rate Blood Pressure 112/41 L Blood Pressure [Orthostatic Lying] 106/54 L Blood Pressure [Orthostatic Sitting] 104/54 L Blood Pressure [Right Arm] Blood Pressure Mean Blood Pressure Mean [Right Arm] Blood Pressure Source [Right Arm] Blood Pressure Position [Right Arm] 02 Sat by Pulse Oximetry 96 Oxygen Delivery Method - Lab Data Lab Results 06/28/21 12:15: WBC 5.4, RBC 4.02 L, Hgb 11.6 L, Hct 34.1 L, MCV 84.9, MCH 28.9, MCHC 34.0, RDW 16.3, Plt Count 68 L, MPV 9.4, Neut % (Auto) 78.6, Lymph % (Auto) 17.6, Hughes % (Auto) 3.2, Eos % (Auto) 0.2, Baso % (Auto) 0.4, Neut # (Auto) 4.3, Lymph # (Auto) 1.0, Hughes # (Auto) 0.2, Eos # (Auto) 0.0, Baso # (Auto) 0.0 06/28/21 12:15: Sodium 137, Potassium 4.0, Chloride 105, Carbon Dioxide 24, Anion Gap 12.0, BUN 48 H, Creatinine 0.80, Estimated Creat Clear 15, Estimated GFR 72, Est GFR ( Amer) 87, Glucose 168 H, Calcium 8.4, Total Bilirubin 1.6 H, AST 75 H, ALT 53, Alkaline Phosphatase 111, Total Protein 5.9 L, Albumin 2.9 L, Globulin 3.0, Albumin/Globulin Ratio 1.0 L, Amylase 49 06/28/21 12:15: Lipase 144 06/28/21 12:15: PT 14.3 H, INR 1.23 H, APTT 27.8 06/28/21 13:11: Ammonia 56 H 06/28/21 13:11: Blood Type B Positive, Antibody Screen Negative, Crossmatch (AHG) See Detail 06/28/21 14:19: Hgb 13.1 D, Hct 38.6 06/28/21 14:19: Blood Type Confirm B Positive 06/28/21 15:00: SARS-CoV-2 (PCR) Not detected, Influenza A Untype (PCR) Not detected, Influenza Type B (PCR) Not detected Result diagrams: 06/28/21 14:19 06/28/21 12:15 Orders (Tests/Meds): ED MEDICATIONS Generic Name Dose Route Start Last Admin Trade Name Freq PRN Reason Stop Dose Admin Octreotide Aceta
[2021-06-28 12:38] LABS: Basophils % 0.4 % (0.1-2.0); Eosinophils % 0.2 % (0.1-12.0); Hematocrit 34.1 % (37.0-47.0); Hemoglobin 11.6 g/dL (12.2-16.2); Lymphocytes % 17.6 % (10-50); Mean Corpuscular Hemoglobin 28.9 pg (27.0-31.2); Mean Corpuscular Volume 84.9 fl (81-99); Mean Platelet Volume 9.4 fl (7.4-10.4); Monocytes # 0.2 K/mm3 (0.1-1.0); Monocytes % 3.2 % (1.7-9.3); Neutrophils # 4.3 K/mm3 (1.8-7.8); Neutrophils % 78.6 % (37.0-80.0); Platelet Count 68 K/mm3 (142-424); Red Blood Count 4.02 M/mm3 (4.20-5.40); Red Cell Distribution Width 16.3 % (11.5-17.5); White Blood Count 5.4 K/mm3 (4.8-10.8)
[2021-06-28 12:41] LABS: Chloride 105 mmol/L (98-107); Sodium 137 mmol/L (136-145)
[2021-06-28 12:43] LABS: Amylase 49 U/L (30-110)
[2021-06-28 12:44] LABS: Alanine Aminotransferase 53 U/L (12-78); Albumin Level 2.9 g/dl (3.5-5.0); Alkaline Phosphatase 111 U/L (38-126); Aspartate Amino Transferase 75 U/L (14-36); Bilirubin,Total 1.6 mg/dl (0.2-1.3); Blood Urea Nitrogen 48 mg/dl (7-17); Calcium 8.4 mg/dl (8.4-10.2); Carbon Dioxide 24 mmol/L (22.0-30.0); Creatinine Clearance Estimated 15 mL/min (50-200); Estimated Glomerular Filt Rate 72 ml/min (>60); GFR (African American) 87 ML/MIN (>60); Glucose 168 mg/dl (74-100); Lipase 144 U/L (23-300); Total Protein,Serum 5.9 g/dl (6.3-8.2)
[2021-06-28 12:46] LABS: Activated Partial Thrombo Time 27.8 seconds (22.8-30.6); Prothrombin Time 14.3 seconds (10.1-12.5)
[2021-06-28 12:51] LABS: INR 1.23 (0.9-1.1)
--- NOTE | 2021-06-28 12:53 | PC.NURSE ---
Attempted to call Dr Duran's office with no answer. Had fixing machine operator page him at this time.
--- NOTE | 2021-06-28 12:56 | PC.NURSE ---
speaking with Dr Duran at this time.
--- NOTE | 2021-06-28 12:58 | PC.NURSE ---
Dr Harris consulted with Dr Schwarz on patient.
--- NOTE | 2021-06-28 13:00 | PC.NURSE ---
Dr. Sanchez paged for patient
--- NOTE | 2021-06-28 13:21 | PC.NURSE ---
[facility] advised that Dr Sanchez will not be available until Friday. notified.
[2021-06-28 13:27] LABS: Ammonia 56 umol/L (9-30)
--- NOTE | 2021-06-28 13:29 | PC.NURSE ---
Called [facility] for patient transfer, they are going to have hospitalist call back (Dr North), to see about accepting and put patient on waiting list
--- NOTE | 2021-06-28 13:36 | PC.NURSE ---
Called [facility] call center for transfere, they advised Dr Tobin (GI) will call back then refer to hospitalist
--- NOTE | 2021-06-28 13:37 | PC.NURSE ---
speaking with GI specialist at [facility]
--- NOTE | 2021-06-28 14:13 | PC.NURSE ---
speaking with Hospitalist at [facility] at this time
--- NOTE | 2021-06-28 14:23 | PC.NURSE ---
Unable to get orthostatics in standing position d/t pt becoming symptomatic
--- NOTE | 2021-06-28 14:32 | PC.NURSE ---
Called [facility] and they advised they are at capacity, but will call back
[2021-06-28 14:40] LABS: Hemoglobin 13.1 g/dL (12.2-16.2)
[2021-06-28 14:42] LABS: Hematocrit 38.6 % (37.0-47.0)
--- NOTE | 2021-06-28 14:52 | PC.NURSE ---
Calling [facility] at this time to inquire about bed availability
--- NOTE | 2021-06-28 15:00 | PC.NURSE ---
COVID swab sent to lab at this time
--- NOTE | 2021-06-28 15:02 | PC.NURSE ---
AUGUSTIN RANGEL speaking with Dr. Emanuel at [facility]
[2021-06-28 15:03] LABS: Coronavirus 19, PCR Not Detected (NotDetected); Influenza A, PCR Not Detected (NotDetected); Influenza B, PCR Not Detected (NotDetected)
--- NOTE | 2021-06-28 15:04 | PC.NURSE ---
Lab notified Gopi HOLLIDAY that the transfusion is available. Patient is finishing her medication currently running infusion
--- NOTE | 2021-06-28 15:08 | PC.NURSE ---
Addendum entered by Michelle King RN 06/28/21 15:09: spoke with Declan in lab Original Note: notified warehouse shipping clerk of possible out of 30 minute window to retrieve blood from lab r/t having to start another IV on pt r/t multiple medications that are not compatible. Notified lab that we will be down soon to get blood, spoi
--- NOTE | 2021-06-28 15:11 | PC.NURSE ---
[facility] hospital transfer center states their medicine service is capped for admissions. States [facility] is full as well.
--- NOTE | 2021-06-28 15:29 | PC.NURSE ---
Dr. Harris stated, hold on blood transfusion at this time. Irving in blood bank made aware
--- NOTE | 2021-06-28 15:36 | PC.NURSE ---
Consulting with Dr. Buenrostro on the patient
--- NOTE | 2021-06-28 15:49 | PC.NURSE ---
notified warehouse sorter of admission
--- NOTE | 2021-06-28 15:51 | PC.NURSE ---
Called [facility] for admission and bed assignment
--- NOTE | 2021-06-28 15:55 | PC.NURSE ---
Per Dr. Harris, canceling blood transfusion. Notified vic in lab of cancelling blood transfusion and will be doing serial hgb/hct levels on pt
--- NOTE | 2021-06-28 16:54 | PC.NURSE ---
pt is upset because she is NPO, pt is requesting something to drink. Offered pt oral swabs multiple times, pt refuses.
--- NOTE | 2021-06-28 17:04 | PC.NURSE ---
HAZEL Julian at
--- NOTE | 2021-06-28 17:16 | PC.NURSE ---
report called to radha reed on second floor at this time
[2021-06-28 18:07] LABS: Lymphocytes # 1.1 K/mm3 (0.7-4.5); Monocytes # 0.2 K/mm3 (0.1-1.0)
[2021-06-28 18:38] LABS: Basophils % 0.1 % (0.1-2.0); Eosinophils % 0.1 % (0.1-12.0); Hematocrit 33.3 % (37.0-47.0); Mean Corpuscular HGB Conc 33.9 g/dL (31.8-35.4); Mean Corpuscular Hemoglobin 28.8 pg (27.0-31.2); Mean Corpuscular Volume 84.8 fl (81-99); Mean Platelet Volume 9.2 fl (7.4-10.4); Monocytes % 2.5 % (1.7-9.3); Neutrophils # 5.8 K/mm3 (1.8-7.8); Neutrophils % 81.4 % (37.0-80.0); Platelet Count 67 K/mm3 (142-424); Red Blood Count 3.93 M/mm3 (4.20-5.40); Red Cell Distribution Width 16.6 % (11.5-17.5); White Blood Count 7.1 K/mm3 (4.8-10.8)
[2021-06-28 18:43] LABS: Hemoglobin 11.3 g/dL (12.2-16.2)
[2021-06-28 19:43] LABS: Hematocrit 30.9 % (37.0-47.0); Hemoglobin 10.7 g/dL (12.2-16.2)
[2021-06-28 21:19] LABS: Hematocrit 30.5 % (37.0-47.0); Hemoglobin 10.5 g/dL (12.2-16.2)
--- NOTE | 2021-06-28 21:53 | HMH.HP ---
*Admission Date: 06/28/21 <Angie Huynh - 06/28/21 22:04> *Chief complaint: vomiting blood <Angie Huynh 06/28/21 22:04> *History of present illness: Ms. Mohr is a 66-year-old female with a history of esophageal varices and liver problems who began vomiting blood last night. She states this started around 11 PM and she had 4 episodes of vomiting dark red blood. This morning she began having blood in her stool as well. She denies any prior history of GI bleeds. She is unaware that she has esophageal varices, but the ER doctore tates this was in her history. Her primary care doctor is in [place] and they are the ones who advised her to come to the emergency room for evaluation. She does see Dr. Franco for her liver condition. She currently denies any abdominal pain and states she just wants something to eat and drink and she wants to be able to go home. Her H&H has decreased from 11.6-10.5. Dr. Duran was initially consulted but stated he did not manage esophageal varices. Dr. Sanchez is out of town. It was felt the patient would require transfer for management, however she refused to go to any other hospital. She wanted to remain at [facility]. The ER physician did inform her that if she hemorrhages severely, we do not have the physicians to manage that condition and she could potentially . The patient stated she understood but still did not want to be transferred. Dr. Buenrostro was contacted and accepted the patient. She will have serial H&H's every 2 hours. <Angie Huynh - 06/28/21 22:04> [facility] History I have reviewed the patient's past medical history: Yes <Angie Huynh 06/28/21 22:04> Medical History: Reports:: Cancer, Hepatitis, Hyperlipidemia, Hypertension, Osteoporosis Denies:: Diabetes Mellitus Type 1, Diabetes Mellitus Type 2, Internal Pacemaker, Lung Disease, Seizures <Angie Huynh 06/28/21 22:04> *Have you ever received a pneumonia vaccine?: No <Angie Huynh 06/28/21 22:04> *Have you received a flu vaccine this season?: Yes <Angie Huynh 06/28/21 22:04> Other Medical History: Reports: Osteoporosis, Other <Angie Huynh 06/28/21 22:04> Other Surgeries: Yes: Colonoscopy, EGD, Other. No: Pacemaker <Angie Huynh 06/28/21 22:04> Amputation: No <Angie Huynh 06/28/21 22:04> Fractures: Yes <Angie Huynh 06/28/21 22:04> - *Social History Smoking Status: Former smoker <Angie Huynh 06/28/21 22:04> Alcohol Intake: never <Angie Huynh 06/28/21 22:04> Alcohol Intake Frequency:: other <AminaAngie 06/28/21 22:04> Substance Use Type: denies use <Hadley Huynha 06/28/21 22:04> *Occupational Status:: unemployed, disabled <Hadley Huynha 06/28/21 22:04> Housing: apartment <AminaAngie 06/28/21 22:04> Household Members: spouse <AminaAngie 06/28/21 22:04> *Travel in the last 8 weeks: None <AminaAngie 06/28/21 22:04> Family Hx:: Hypertension, Cancer <AminaAngie 06/28/21 22:04> [employer] history: No [employer] history <Hadley Huynha 06/28/21 22:04> Review of Systems - Constitutional Reports weakness, Denies chills, Denies fever(s) <Angie Huynh 06/28/21 22:04> - Eyes Denies blurry vision, Denies double vision <Hadley Huynha 06/28/21 22:04> - ENT Reports nasal congestion, Denies sore throat <Hadley Huynha 06/28/21 22:04> - *Cardiovascular Denies chest pain, Denies shortness of breath <Angie Huynh 06/28/21 22:04> - *Respiratory Denies cough, Denies shortness of breath <Angie Huynh 06/28/21 22:04> - *Gastrointestinal Reports loose stools, Reports vomiting blood, Reports black, tarry stools, Reports nausea, Denies abdominal pain, Denies vomiting <Angie Huynh 06/28/21 22:04> - *Genitourinary Denies difficulty urinating, Denies painful urination <Angie Huynh 06/28/21 22:04> - *Musculoskeletal Denies joint pain <Angie Huynh 06/28/21 22:04> - *Neurologic Reports dizziness, Reports weakness
[2021-06-28 23:24] LABS: Hemoglobin 9.9 g/dL (12.2-16.2)
[2021-06-29] VITALS (14 sets, daily range): BP systolic 115–157; BP diastolic 44–87; PULSE 82–100; RESP 18–30; TEMP 36.6–37; O2SAT 97–100; BMI 35.6
--- NOTE | 2021-06-29 04:36 | PC.NURSE ---
shift summary patient has had multiple constantine red stools throughout shift. small to moderate amount at beginning of shift, currently has decreased to small dark colored clots. no emesis or nausea noted this shift. monitoring manager has shown sr-st. patient has also denied any light headedness
[2021-06-29 05:57] LABS: Ammonia 18 umol/L (9-30)
[2021-06-29 06:07] LABS: Chloride 108 mmol/L (98-107)
[2021-06-29 06:08] LABS: Potassium 3.5 mmoL/L (3.5-5.1); Sodium 135 mmol/L (136-145)
[2021-06-29 06:10] LABS: Alanine Aminotransferase 52 U/L (12-78); Alkaline Phosphatase 86 U/L (38-126); Aspartate Amino Transferase 76 U/L (14-36); Bilirubin,Total 1.2 mg/dl (0.2-1.3); Blood Urea Nitrogen 54 mg/dl (7-17); Creatinine Clearance Estimated 59 mL/min (50-200); Estimated Glomerular Filt Rate 50 ml/min (>60); GFR (African American) 60 ML/MIN (>60)
[2021-06-29 06:11] LABS: Albumin Level 2.5 g/dl (3.5-5.0); Albumin/Globulin Ratio 0.9 (1.1-1.8); Anion Gap 9.5 mEq/L (5-15); Calcium 7.6 mg/dl (8.4-10.2); Carbon Dioxide 21 mmol/L (22.0-30.0); Globulin 2.7 g/dL (1.3-3.2); Glucose 163 mg/dl (74-100); Total Protein,Serum 5.2 g/dl (6.3-8.2)
--- NOTE | 2021-06-29 07:06 | HMH.PHAVTE ---
[facility] Pharmacy VTE Monitoring - Patient Demographics Admission date: 06/28/21 Report Date: 06/29/21 Time: 07:06 Allergies/Adverse Reactions: Patient Allergies Penicillins Allergy (Severe, Verified 03/22/21 09:57) I-HIVES prednisone Allergy (Severe, Verified 03/22/21 09:57) S-DIFF. BREATHING Sulfa (Sulfonamide Antibiotics) [SULFA (SULFONAMIDE ANTIBIOTICS)] Allergy (Severe, Verified 03/22/21 09:57) S-ANAPHYLAXIS sulfamethoxazole [From Bactrim] Allergy (Severe, Verified 03/22/21 09:57) S-DIFF. BREATHING trimethoprim [From Bactrim] Allergy (Severe, Verified 03/22/21 09:57) S-DIFF. BREATHING Height: 1.45 m Weight: 75.07 kg Patient Problems: Current Active Problems Hematemesis (Acute) Esophageal varices with bleeding (Acute) Hepatitis (Acute) Hypertension (Acute) Hyperlipidemia (Acute) Autoimmune hepatitis (Acute) Cirrhosis (Acute) Portal hypertension (Acute) Splenomegaly (Acute) Cytopenia (Acute) - VTE Risk Labs: VTE Related Lab Results Hgb 9.9 g/dL (12.2-16.2) L 06/28/21 23:19 Hct 29.0 % (37.0-47.0) L 06/28/21 23:19 Plt Count 67 K/mm3 (142-424) L 06/28/21 17:56 PT 14.3 seconds (10.1-12.5) H 06/28/21 12:15 INR 1.23 (0.9-1.1) H 06/28/21 12:15 APTT 27.8 seconds (22.8-30.6) 06/28/21 12:15 BUN 54 mg/dl (7-17) H 06/29/21 05:38 Creatinine 1.10 mg/dl (0.52-1.04) H D 06/29/21 05:38 Estimated Creat Clear 59 mL/min (50-200) 06/29/21 05:38 VTE Score: 3 VTE Risk Level: Low Risk - Prophylaxis VTE Prophylaxis Ordered?: Yes Types of VTE Prophylaxis: TEDS Knee High Location of Applied Device: Bilateral Lower Extremeties
--- NOTE | 2021-06-29 08:07 | HMH.PHAINT ---
MEDICATION RECONCILIATION COMPLETED ON PATIENT USING EXTERNAL FILL HISTORY FROM PHARMACY. -CAROLE DUBON, CHATAD
--- NOTE | 2021-06-29 08:57 | HMH.ACPN2 ---
<Angie Hyunh - Last Filed: 06/29/21 08:57> Internal Medicine - PN: Subj *Date: 06/29/21 *Time: 08:57 Interval history: Patient states she is feeling well today. She states she has had no more blood in her stool has not had any more hematemesis. She denies any pain and wants to go home today. Exam Vital signs and Labs for Last 24 Hours: Temp Pulse Resp BP Pulse Ox 98.2 F 96 H 18 115/87 97 06/29/21 04:00 06/29/21 06:00 06/29/21 06:00 06/29/21 06:00 06/29/21 06:00 Laboratory Results - last 24 hr 06/28/21 12:15: WBC 5.4, RBC 4.02 L, Hgb 11.6 L, Hct 34.1 L, MCV 84.9, MCH 28.9, MCHC 34.0, RDW 16.3, Plt Count 68 L, MPV 9.4, Neut % (Auto) 78.6, Lymph % (Auto) 17.6, Graham % (Auto) 3.2, Eos % (Auto) 0.2, Baso % (Auto) 0.4, Neut # (Auto) 4.3, Lymph # (Auto) 1.0, Graham # (Auto) 0.2, Eos # (Auto) 0.0, Baso # (Auto) 0.0 06/28/21 12:15: Sodium 137, Potassium 4.0, Chloride 105, Carbon Dioxide 24, Anion Gap 12.0, BUN 48 H, Creatinine 0.80, Estimated Creat Clear 15, Estimated GFR 72, Est GFR ( Amer) 87, Glucose 168 H, Calcium 8.4, Total Bilirubin 1.6 H, AST 75 H, ALT 53, Alkaline Phosphatase 111, Total Protein 5.9 L, Albumin 2.9 L, Globulin 3.0, Albumin/Globulin Ratio 1.0 L, Amylase 49 06/28/21 12:15: Lipase 144 06/28/21 12:15: PT 14.3 H, INR 1.23 H, APTT 27.8 06/28/21 13:11: Ammonia 56 H 06/28/21 13:11: Blood Type B Positive, Antibody Screen Negative, Crossmatch (AHG) See Detail 06/28/21 14:19: Hgb 13.1 D, Hct 38.6 06/28/21 14:19: Blood Type Confirm B Positive 06/28/21 15:00: SARS-CoV-2 (PCR) Not detected, Influenza A Untype (PCR) Not detected, Influenza Type B (PCR) Not detected 06/28/21 17:56: WBC 7.1 D, RBC 3.93 L, Hgb 11.3 L D, Hct 33.3 L, MCV 84.8, MCH 28.8, MCHC 33.9, RDW 16.6, Plt Count 67 L, MPV 9.2, Neut % (Auto) 81.4 H, Lymph % (Auto) 16.0, Graham % (Auto) 2.5, Eos % (Auto) 0.1, Baso % (Auto) 0.1, Neut # (Auto) 5.8, Lymph # (Auto) 1.1, Graham # (Auto) 0.2, Eos # (Auto) 0.0, Baso # (Auto) 0.0 06/28/21 19:14: Hgb 10.7 L, Hct 30.9 L 06/28/21 21:09: Hgb 10.5 L, Hct 30.5 L 06/28/21 23:19: Hgb 9.9 L, Hct 29.0 L 06/29/21 05:38: Sodium 135 L, Potassium 3.5, Chloride 108 H, Carbon Dioxide 21 L, Anion Gap 9.5, BUN 54 H, Creatinine 1.10 H D, Estimated Creat Clear 59, Estimated GFR 50 L, Est GFR ( Amer) 60 D, Glucose 163 H, Calcium 7.6 L, Total Bilirubin 1.2, AST 76 H, ALT 52, Alkaline Phosphatase 86, Total Protein 5.2 L, Albumin 2.5 L D, Globulin 2.7, Albumin/Globulin Ratio 0.9 L 06/29/21 05:38: Ammonia 18 I & O for Last 24 hours: Intake & Output 06/26/21 06/27/21 06/28/21 06/29/21 11:59 11:59 11:59 11:59 Intake Total 1459 / 1459 Output Total 0 / 0 Balance 1459 / 1459 Weight 167 lb 165 lb 8 oz - Constitutional no acute distress - *Routine Respiratory Exam Present: CTA bilaterally - *Routine Cardiovascular Exam Present: RRR - *Routine Abdominal Exam Present: soft, normoactive bowel sounds. Absent: tenderness - *Routine Extremities Exam Absent: cyanosis, clubbing, edema - *Routine Skin Exam Present: warm. Absent: rash - *Routine Neurological Exam Present: alert, oriented X3 Assessment and Plan (1) Esophageal varices with bleeding Status: Acute Qualifiers: Esophageal varices type: secondary Qualified Code(s): I85.11 - Secondary esophageal varices with bleeding Category: Medical Code(s): I85.01 - Esophageal varices with bleeding (2) Hematemesis Status: Acute Qualifiers: Nausea presence: with nausea Qualified Code(s): K92.0 - Hematemesis Category: Medical Code(s): K92.0 - Hematemesis (3) Autoimmune hepatitis Status: Acute Category: Medical Code(s): K75.4 - Autoimmune hepatitis (4) Cirrhosis Status: Acute Category: Medical Code(s): K74.60 - Unspecified cirrhosis of liver (5) Portal hypertension Status: Acute Category: Medical Code(s): K76.6 - Portal hypertension (6) Splenomegaly Status: Acute Category: Medical Code
[2021-06-29 12:22] LABS: Hematocrit 27.3 % (37.0-47.0); Hemoglobin 9.2 g/dL (12.2-16.2)
[2021-06-29 18:26] LABS: Hematocrit 24.6 % (37.0-47.0); Hemoglobin 8.3 g/dL (12.2-16.2)
[2021-06-30] VITALS (26 sets, daily range): BP systolic 111–168; BP diastolic 44–98; PULSE 16–90; RESP 14–18; TEMP 36.6–36.9; O2SAT 95–100; BMI 37.1
[2021-06-30 06:18] LABS: Hematocrit 22.3 % (37.0-47.0); Hemoglobin 7.5 g/dL (12.2-16.2)
--- NOTE | 2021-06-30 08:20 | P.PN_ITS ---
Internal Medicine - PN: Subj *Date: 06/30/21 *Time: 08:39 Interval history: She rested well and denies complaints of abdominal pain or nausea. No reported stools during the night. She wants to go home. Exam Vital signs and Labs for Last 24 Hours: Temp Pulse Resp BP Pulse Ox 98.2 F 62 18 136/44 L 98 06/30/21 04:00 06/30/21 06:00 06/30/21 06:00 06/30/21 06:00 06/30/21 06:00 Laboratory Results - last 24 hr 06/29/21 12:10: Hgb 9.2 L, Hct 27.3 L 06/29/21 18:05: Hgb 8.3 L, Hct 24.6 L 06/30/21 05:12: Hgb 7.5 L, Hct 22.3 L I & O for Last 24 hours: Intake & Output 06/27/21 06/28/21 06/29/21 06/30/21 11:59 11:59 11:59 11:59 Intake Total 1459 / 1459 3779 / 3779 Output Total 0 / 0 Balance 1459 / 1459 3779 / 3779 Weight 167 lb 165 lb 8 oz 172 lb 6 oz Narrative: She is resting comfortably and appears in no acute distress. Color is adequate. Lungs are clear anteriorly. Heart is regular. Abdomen is soft and nondistended with no unusual masses and no tenderness. Assessment and Plan (1) GI bleeding Status: Acute Category: Medical Code(s): K92.2 - Gastrointestinal hemorrhage, unspecified (2) Blood loss anemia Status: Acute Category: Medical Code(s): D50.0 - Iron deficiency anemia secondary to blood loss (chronic) (3) Esophageal varices Status: Acute Category: Medical Code(s): I85.00 - Esophageal varices without bleeding (4) Hematemesis Status: Acute Qualifiers: Nausea presence: with nausea Qualified Code(s): K92.0 - Hematemesis Category: Medical Code(s): K92.0 - Hematemesis (5) Autoimmune hepatitis Status: Acute Category: Medical Code(s): K75.4 - Autoimmune hepatitis (6) Cirrhosis Status: Acute Category: Medical Code(s): K74.60 - Unspecified cirrhosis of liver (7) Portal hypertension Status: Acute Category: Medical Code(s): K76.6 - Portal hypertension (8) Splenomegaly Status: Acute Category: Medical Code(s): R16.1 - Splenomegaly, not elsewhere classified (9) Cytopenia Status: Acute Category: Medical Code(s): D75.9 - Disease of blood and blood- forming organs, unspecified (10) Hypertension Status: Acute Category: Medical Code(s): I10 - Essential (primary) hypertension (11) Hyperlipidemia Status: Acute Category: Medical Code(s): E78.5 - Hyperlipidemia, unspecified - Assessment and plan all Dx Assessment and Plan for all problems:: Symptomatically, she is improved but her blood count continues to drop. In the absence of further vomiting or hematemesis and with the documented hematochezia, I question the initial impression of esophageal variceal bleeding and suspect a possible lower GI source. Her exam is benign this morning. Will proceed with blood transfusion and surgical consult.
--- NOTE | 2021-06-30 08:37 | PC.NURSE ---
Dr. Santiago notified of consult.
--- NOTE | 2021-06-30 08:43 | PC.NURSE ---
Spoke to Dr. Santiago, states he will see pt later today.
--- NOTE | 2021-06-30 14:57 | PC.NURSE ---
First unit of PRBC's finished, pt tolerated w/o incident. She remains on room air, no s/s of resp distress. Lungs diminished upon auscultation. HR regular. Abdomen soft, non-tender w/ active BS in all quads. Pt has had multiple small loose stools this shift, no blood visualized in stool. Voiding w/o difficulty. Ambulates w/ standby assistance back and forth to bathroom w/o safety concerns. She did shower independently this AM. Skin intact. Teds placed on BLE. Pt was seen by on-call surgeon w/ no plan for intervention @ this time. Pt is a alert and appropriate. No complaints voiced this shift. She has spent most of the day up to chair working on word searches. Call marcella w/in reach.
--- NOTE | 2021-06-30 15:05 | HMH.GSCON ---
*Admission Date: 06/28/21 *Reason for consult:: GI bleed. Acute blood loss anemia. *History of present illness: Ms. Mohr is a 66-year-old female with known history of underlying liver disease with portal hypertension and esophageal varices. Recent anemia noted. Acute blood loss anemia. Admitted. Currently receiving second unit of packed red blood cell transfusion for hemoglobin less than 8. Relatively asymptomatic. Surgical consultation requested based on potential intervention needed if increased bleeding presents and patient desire to stay at [facility]. No abdominal pain. No hematemesis today. No rectal outlet bleeding. Review of Systems - Review of Systems Review of systems:: pertinent systems reviewed and negative unless documented below - *Neurologic Reports dizziness, Reports weakness, Denies headache(s) [facility] History Medical History: Reports:: Cancer, Hepatitis, Hyperlipidemia, Hypertension, Osteoporosis Denies:: Diabetes Mellitus Type 1, Diabetes Mellitus Type 2, Internal Pacemaker, Lung Disease, Seizures *Have you ever received a pneumonia vaccine?: No *Have you received a flu vaccine this season?: Yes Other Medical History: Reports: Osteoporosis, Other Other Surgeries: Yes: Colonoscopy, EGD, Other. No: Pacemaker Amputation: No Fractures: Yes - *Social History Smoking Status: Former smoker Alcohol Intake: never Alcohol Intake Frequency:: other Substance Use Type: denies use *Occupational Status:: unemployed, disabled Housing: apartment Household Members: spouse *Travel in the last 8 weeks: None Family Hx:: Hypertension, Cancer CASER UP history: No CASER UP history Meds Home Medications Medication Instructions Recorded Confirmed Type calcium citrate 315 mg 1 tab PO DAILY 01/15/18 06/29/21 History calcium-vitamin D3 6.25 mcg (250 unit) tablet loratadine 10 mg capsule 10 mg PO DAILY cap 01/15/18 06/28/21 History potassium chloride 10 mEq 10 meq PO TID 01/15/18 06/29/21 History tablet,extended release triamterene 75 1 tab PO DAILY 01/15/18 06/29/21 History mg-hydrochlorothiazide 50 mg tablet ursodiol 500 mg tablet 500 mg PO BID #180 tab 05/27/19 06/28/21 History ferrous sulfate 325 mg (65 mg 325 mg PO BID 09/28/20 06/28/21 History iron) tablet Metoprolol Succinate [Metoprolol 25 mg PO DAILY 06/29/21 06/29/21 History Succinate 25mg Tablet*] Allergies Allergy/AdvReac Type Severity Reaction Status Date / Time Penicillins Allergy Severe I-HIVES Verified 03/22/21 09:57 prednisone Allergy Severe S-DIFF. Verified 03/22/21 09:57 BREATHING Sulfa (Sulfonamide Allergy Severe S-ANAPHYLAX Verified 03/22/21 09:57 Antibiotics) IS [SULFA (SULFONAMIDE ANTIBIOTICS)] sulfamethoxazole Allergy Severe S-DIFF. Verified 03/22/21 09:57 [From Bactrim] BREATHING trimethoprim [From Bactrim] Allergy Severe S-DIFF. Verified 03/22/21 09:57 BREATHING Exam Vital signs and Labs for Last 24 Hours: Temp Pulse Resp BP Pulse Ox 98.2 F 72 16 160/55 H 98 06/30/21 14:40 06/30/21 14:40 06/30/21 14:40 06/30/21 14:40 06/30/21 14:40 Laboratory Results - last 24 hr 06/28/21 13:11: Blood Type B Positive, Antibody Screen Negative, Crossmatch (AHG) See Detail 06/29/21 18:05: Hgb 8.3 L, Hct 24.6 L 06/30/21 05:12: Hgb 7.5 L, Hct 22.3 L I & O for Last 24 hours: Intake & Output 06/28/21 06/29/21 06/30/21 07/01/21 11:59 11:59 11:59 11:59 Intake Total 1459 / 1459 3899 / 3899 0 / 0 Output Total 0 / 0 Balance 1459 / 1459 3899 / 3899 0 / 0 Weight 75.75 kg 75.07 kg 78.188 kg - Constitutional no acute distress - *Routine Respiratory Exam Present: CTA bilaterally - *Routine Cardiovascular Exam Present: RRR - *Routine Abdominal Exam Present: soft Results - Labs 06/30/21 05:12 06/29/21 05:38 Laboratory Results - last 24 hr 06/28/21 13:11: Blood Type B Positive, Antibody Screen Negative, Crossmatch (AHG) See Detail 08
[2021-06-30 20:05] LABS: Hematocrit 30.6 % (37.0-47.0); Hemoglobin 10.7 g/dL (12.2-16.2)
--- NOTE | 2021-07-01 03:14 | PC.NURSE ---
Patient is A&Ox4. no complaints of pain. PAtient ripped IV out and new one was obtained. ambulates to bathroom x stand by assist. VSs. no further concerns noted.
[2021-07-01 04:00] VITALS: BP 144/73; PULSE 76; RESP 18; TEMP 36.6; O2SAT 97
[2021-07-01 05:15] VITALS: BMI 37.5
[2021-07-01 07:33] VITALS: BP 146/80; PULSE 79; RESP 20; TEMP 36.6; O2SAT 98
--- NOTE | 2021-07-01 08:36 | P.PN_ITS ---
Internal Medicine - PN: Subj *Date: 07/01/21 *Time: 08:49 Interval history: No complaints of nausea, vomiting, or abdominal pain. She she has had no further hematemesis or hematochezia. Surgical consultation noted. She tolerated her blood transfusion yesterday. Exam Vital signs and Labs for Last 24 Hours: Temp Pulse Resp BP Pulse Ox 97.9 F 79 20 146/80 H 98 07/01/21 07:33 07/01/21 07:33 07/01/21 07:33 07/01/21 07:33 07/01/21 07:33 Laboratory Results - last 24 hr 06/28/21 13:11: Blood Type B Positive, Antibody Screen Negative, Crossmatch (AHG) See Detail 06/30/21 19:55: Hgb 10.7 L D, Hct 30.6 L I & O for Last 24 hours: Intake & Output 06/28/21 06/29/21 06/30/21 07/01/21 11:59 11:59 11:59 11:59 Intake Total 1459 / 1459 3899 / 3899 3079 / 3079 Output Total 0 / 0 Balance 1459 / 1459 3899 / 3899 3079 / 3079 Weight 167 lb 165 lb 8 oz 172 lb 6 oz 174 lb 2 oz Narrative: She appears in no distress. Lungs are clear. Abdomen is soft and nondistended with no unusual masses or tenderness. Assessment and Plan (1) GI bleeding Status: Acute Category: Medical Code(s): K92.2 - Gastrointestinal hemorrhage, unspecified (2) Blood loss anemia Status: Acute Category: Medical Code(s): D50.0 - Iron deficiency anemia secondary to blood loss (chronic) (3) Esophageal varices Status: Acute Category: Medical Code(s): I85.00 - Esophageal varices without bleeding (4) Hematemesis Status: Acute Qualifiers: Nausea presence: with nausea Qualified Code(s): K92.0 - Hematemesis Category: Medical Code(s): K92.0 - Hematemesis (5) Autoimmune hepatitis Status: Acute Category: Medical Code(s): K75.4 - Autoimmune hepatitis (6) Cirrhosis Status: Acute Category: Medical Code(s): K74.60 - Unspecified cirrhosis of liver (7) Portal hypertension Status: Acute Category: Medical Code(s): K76.6 - Portal hypertension (8) Splenomegaly Status: Acute Category: Medical Code(s): R16.1 - Splenomegaly, not elsewhere classified (9) Cytopenia Status: Acute Category: Medical Code(s): D75.9 - Disease of blood and blood- forming organs, unspecified (10) Hypertension Status: Acute Category: Medical Code(s): I10 - Essential (primary) hypertension (11) Hyperlipidemia Status: Acute Category: Medical Code(s): E78.5 - Hyperlipidemia, unspecified - Assessment and plan all Dx Assessment and Plan for all problems:: Her posttransfusion hemoglobin is improved. Repeat H&H is pending this morning. Surgical consultation noted with no immediate recommendations. If hemoglobin is satisfactory this morning, will plan to discharge home and have her follow-up with her PCP to monitor serial H&H's.
[2021-07-01 09:17] LABS: Basophils % 1.3 % (0.1-2.0); Eosinophils # 0.2 K/mm3 (0.0-0.4); Eosinophils % 9.6 % (0.1-12.0); Hematocrit 30.1 % (37.0-47.0); Hemoglobin 10.3 g/dL (12.2-16.2); Lymphocytes # 0.8 K/mm3 (0.7-4.5); Lymphocytes % 31.1 % (10-50); Mean Corpuscular HGB Conc 34.3 g/dL (31.8-35.4); Mean Corpuscular Hemoglobin 29.9 pg (27.0-31.2); Mean Corpuscular Volume 87.1 fl (81-99); Mean Platelet Volume 8.8 fl (7.4-10.4); Monocytes # 0.1 K/mm3 (0.1-1.0); Monocytes % 3.9 % (1.7-9.3); Neutrophils # 1.4 K/mm3 (1.8-7.8); Neutrophils % 54.1 % (37.0-80.0); Red Blood Count 3.46 M/mm3 (4.20-5.40); Red Cell Distribution Width 17.3 % (11.5-17.5); White Blood Count 2.5 K/mm3 (4.8-10.8)
[2021-07-01 09:18] LABS: Platelet Count 69 K/mm3 (142-424)
--- NOTE | 2021-07-02 15:11 | HMH.DCSUM ---
General - General Admission date:: 06/28/21 <Dustin Buenrostro - 08/05/21 22:49> 06/28/21 <Angie Huynh - 07/02/21 15:17> Discharge date: 07/01/21 <Angie Huynh - 07/02/21 15:17> HPI HPI: Ms. Mohr is a 66-year-old female with a history of esophageal varices and liver problems who began vomiting blood last night. She states this started around 11 PM and she had 4 episodes of vomiting dark red blood. This morning she began having blood in her stool as well. She denies any prior history of GI bleeds. She is unaware that she has esophageal varices, but the ER doctore tates this was in her history. Her primary care doctor is in [place] and they are the ones who advised her to come to the emergency room for evaluation. She does see Dr. Franco for her liver condition. She currently denies any abdominal pain and states she just wants something to eat and drink and she wants to be able to go home. Her H&H has decreased from 11.6-10.5. Dr. Duran was initially consulted but stated he did not manage esophageal varices. Dr. Sanchez is out of town. It was felt the patient would require transfer for management, however she refused to go to any other hospital. She wanted to remain at [facility]. The ER physician did inform her that if she hemorrhages severely, we do not have the physicians to manage that condition and she could potentially . The patient stated she understood but still did not want to be transferred. Dr. Buenrostro was contacted and accepted the patient. She will have serial H&H's every 2 hours. <Angie Huynh - 07/02/21 15:17> Hospital Course Hospital Course: The patient was admitted for serial H&H's every 2 hours. The patient wanted a diet and was given something to eat on 06/29/2021. Repeat H&H was ordered for the afternoon as it had remained stable. She denied any abdominal pain, nausea, or vomiting. She denied blood in her stool, although nursing staff reported several bloody stools during the night. Her repeat hemoglobin did drop to 9.2. Even though she wanted to go home, Dr. Buenrostro recommended she remain in the hospital for continued monitoring of her hemoglobin and hematocrit. By 06/30/2021, her H&H continued to drop. In the absence of further vomiting or hematemesis and with documented hematochezia, Dr. Buenrostro questioned the initial impression of esophageal variceal bleeding and suspected a possible lower GI source. She was transfused and surgery was consulted. She was seen in consultation by Dr. Santiago who recommended supportive care and continued monitoring of her hemoglobin and hematocrit. By 07/01/2021, she had tolerated her blood transfusion and her H&H improved. She was stable to be discharged home and will need to follow-up with her PCP as soon as possible for repeat CBC. She was discharged home on labetalol in place of her metoprolol for more specific prophylaxis for her esophageal varices. It was also felt she would benefit from outpatient GI consultation. <Angie Huynh - 07/02/21 15:17> Objective Vital signs: Temp Pulse Resp BP Pulse Ox 97.9 F 79 20 146/80 H 98 07/01/21 07:33 07/01/21 07:33 07/01/21 07:33 07/01/21 07:33 07/01/21 07:33 <Dustin Buenrostro - 08/05/21 22:49> Temp Pulse Resp BP Pulse Ox 97.9 F 79 20 146/80 H 98 07/01/21 07:33 07/01/21 07:33 07/01/21 07:33 07/01/21 07:33 07/01/21 07:33 <Angie Huynh - 07/02/21 15:17> Narrative: She appears in no distress. Lungs are clear. Abdomen is soft and nondistended with no unusual masses or tenderness. <Angie Huynh - 07/02/21 15:17> DS: Diagnosis - Discharge Diagnosis (1) GI bleeding Status: Acute (2) Blood loss anemia Status: Acute (3) Esophageal varices Status: Acute (4) Hematemesis Status: Acute (5) Autoimmune hepatitis Status: Acute (6) Cirrhosis Status: Acute (7) Portal hypertension Status: Ac
== END 2021-07-01 13:10 | disposition home or self-care (01) ==
LOC: ER 15:51 → 2ND 17:12
PROVIDERS: Admitting Provider Family Medicine; Emergency Provider Emergency Medicine; PCP Nurse Practitioner Family; Visit Provider Family Medicine
DX: I85.01 Esophageal varices with bleeding (principal); K75.9 Inflammatory liver disease, unspecified; Z20.822 Contact with and (suspected) exposure to COVID-19; Z88.8 Allergy status to other drugs, medicaments and biological substances; D50.0 Iron deficiency anemia secondary to blood loss (chronic); K75.4 Autoimmune hepatitis; K74.60 Unspecified cirrhosis of liver; K76.6 Portal hypertension; R16.1 Splenomegaly, not elsewhere classified; Z88.0 Allergy status to penicillin; Z88.2 Allergy status to sulfonamides; Z79.899 Other long term (current) drug therapy
CPT/HCPCS: G0378; 36415; 80053; 82140; 82150; 83690; 85014; 85018; 85025; 85610; 85730; 86850; 94760; 96365; 96367; 96375; 99284; J2354; P9016; U0003

== ENCOUNTER → 2021-07-06 10:42 | Outpatient (CLI) | payer MEDICARE, SELFPAY ==
[2021-07-06 10:59] LABS: Basophils % 1.2 % (0.1-2.0); Eosinophils # 0.3 K/mm3 (0.0-0.4); Eosinophils % 7.7 % (0.1-12.0); Hematocrit 30.2 % (37.0-47.0); Hemoglobin 9.8 g/dL (12.2-16.2); Lymphocytes % 31.9 % (10-50); Mean Corpuscular HGB Conc 32.6 g/dL (31.8-35.4); Mean Corpuscular Hemoglobin 29.4 pg (27.0-31.2); Mean Corpuscular Volume 90.4 fl (81-99); Mean Platelet Volume 10.3 fl (7.4-10.4); Monocytes # 0.2 K/mm3 (0.1-1.0); Neutrophils # 1.7 K/mm3 (1.8-7.8); Neutrophils % 52.2 % (37.0-80.0); Platelet Count 65 K/mm3 (142-424); Red Blood Count 3.34 M/mm3 (4.20-5.40); Red Cell Distribution Width 19.1 % (11.5-17.5); White Blood Count 3.2 K/mm3 (4.8-10.8)
== END ==
PROVIDERS: Visit Provider Nurse Practitioner Family
DX: D50.9 Iron deficiency anemia, unspecified (principal); I85.01 Esophageal varices with bleeding
CPT/HCPCS: 36415; 85025

== ENCOUNTER → 2021-07-12 13:37 | Outpatient (CLI) | payer MEDICARE, SELFPAY ==
[2021-07-12 14:28] LABS: Basophils % 0.7 % (0.1-2.0); Eosinophils # 0.2 K/mm3 (0.0-0.4); Eosinophils % 3.4 % (0.1-12.0); Hemoglobin 10.4 g/dL (12.2-16.2); Lymphocytes # 1.3 K/mm3 (0.7-4.5); Lymphocytes % 24.7 % (10-50); Mean Corpuscular HGB Conc 31.5 g/dL (31.8-35.4); Mean Corpuscular Hemoglobin 29.1 pg (27.0-31.2); Mean Corpuscular Volume 92.4 fl (81-99); Mean Platelet Volume 9.6 fl (7.4-10.4); Monocytes # 0.3 K/mm3 (0.1-1.0); Monocytes % 6.1 % (1.7-9.3); Neutrophils # 3.4 K/mm3 (1.8-7.8); Platelet Count 81 K/mm3 (142-424); Red Blood Count 3.57 M/mm3 (4.20-5.40); White Blood Count 5.2 K/mm3 (4.8-10.8)
[2021-07-12 15:15] LABS: Iron 40 ug/dL (37-170)
[2021-07-12 15:24] LABS: Total Iron Binding Capacity 244 ug/dL (265-497)
[2021-07-12 15:50] LABS: Ferritin 39.4 ng/ml (11.1-264)
== END ==
PROVIDERS: Visit Provider Internal Medicine Medical Oncology
DX: D64.9 Anemia, unspecified (principal)
CPT/HCPCS: 36415; 82728; 83540; 83550; 85025

== ENCOUNTER 2021-08-14 09:29 | Emergency (ER) | payer MEDICARE, SELFPAY ==
[2021-08-14 09:30] VITALS: BP 150/62; PULSE 60; RESP 16; TEMP 36.6; O2SAT 93; BMI 36.1
[2021-08-14 10:11] LABS: Basophils % 1.6 % (0.1-2.0); Eosinophils # 0.3 K/mm3 (0.0-0.4); Eosinophils % 9.4 % (0.1-12.0); Hematocrit 36.7 % (37.0-47.0); Hemoglobin 11.5 g/dL (12.2-16.2); Lymphocytes % 36.3 % (10-50); Mean Corpuscular HGB Conc 31.4 g/dL (31.8-35.4); Mean Corpuscular Hemoglobin 27.4 pg (27.0-31.2); Mean Platelet Volume 10.7 fl (7.4-10.4); Monocytes # 0.2 K/mm3 (0.1-1.0); Monocytes % 7.1 % (1.7-9.3); Neutrophils # 1.3 K/mm3 (1.8-7.8); Neutrophils % 45.6 % (37.0-80.0); Platelet Count 66 K/mm3 (142-424); Red Blood Count 4.21 M/mm3 (4.20-5.40); Red Cell Distribution Width 16.2 % (11.5-17.5); White Blood Count 2.7 K/mm3 (4.8-10.8)
[2021-08-14 10:17] LABS: Alanine Aminotransferase 36 U/L (12-78); Albumin Level 2.6 g/dl (3.5-5.0); Albumin/Globulin Ratio 0.7 (1.1-1.8); Alkaline Phosphatase 114 U/L (38-126); Anion Gap 5.6 mEq/L (5-15); Aspartate Amino Transferase 66 U/L (14-36); Blood Urea Nitrogen 15 mg/dl (7-17); Calcium 8.4 mg/dl (8.4-10.2); Carbon Dioxide 27 mmol/L (22.0-30.0); Chloride 110 mmol/L (98-107); Creatinine Clearance Estimated 65 mL/min (50-200); Estimated Glomerular Filt Rate 72 ml/min (>60); GFR (African American) 87 ML/MIN (>60); Globulin 3.6 g/dL (1.3-3.2); Glucose 153 mg/dl (74-100); Potassium 3.6 mmoL/L (3.5-5.1); Sodium 139 mmol/L (136-145); Total Protein,Serum 6.2 g/dl (6.3-8.2)
[2021-08-14 10:40] LABS: Occult Blood,Stool Positive (Negative)
--- NOTE | 2021-08-14 10:59 | HMH.EDGENADL ---
ED Disposition Clinical Impression: Bright red blood per rectum Disposition: Home, Self-Care Condition on Discharge: Good Additional Instructions: Follow-up with your casting carrier in the next 1 to 2 days. Return to emergency department for bleeding per rectum, shortness of breath, lightheadedness abdominal pain. Referrals: David Blair MD [Primary Care Provider] - (Tomorrow) Time of Disposition: 11:06 - Critical Care Critical Care Time: No Attestation: On 08/14/21, the high probability of a clinically significant, sudden or life threatening deterioration of the following system(s) required my full and direct attention, intervention and personal management. The time I documented below is in addition to time spent performing reported procedures but includes the following listed in this critical care notation. Medical Decision Making - Medical Records Medical records reviewed: Yes: I reviewed the patient's medical records. - Yogesh Inquiry Pt receiving controlled substance: No Vital Signs: 08/14/21 09:30 Temperature 97.9 F Temperature Source Oral Pulse Rate [Right] 60 Respiratory Rate 16 Blood Pressure [Right Arm] 150/62 H Blood Pressure Mean [Right Arm] 91 Blood Pressure Source [Right Arm] Automatic Cuff Blood Pressure Position [Right Arm] Sitting 02 Sat by Pulse Oximetry 93 L Oxygen Delivery Method Room Air - Lab Data Lab results reviewed: Yes: I reviewed the patient's lab results. Lab Results 08/14/21 09:55: WBC 2.7 L, RBC 4.21, Hgb 11.5 L, Hct 36.7 L, MCV 87.0, MCH 27.4, MCHC 31.4 L, RDW 16.2, Plt Count 66 L, MPV 10.7 H, Neut % (Auto) 45.6, Lymph % (Auto) 36.3, [place] % (Auto) 7.1, Eos % (Auto) 9.4, Baso % (Auto) 1.6, Neut # (Auto) 1.3 L, Lymph # (Auto) 1.0, [place] # (Auto) 0.2, Eos # (Auto) 0.3, Baso # (Auto) 0.0 08/14/21 09:55: Sodium 139, Potassium 3.6, Chloride 110 H, Carbon Dioxide 27, Anion Gap 5.6, BUN 15, Creatinine 0.80, Estimated Creat Clear 65, Estimated GFR 72, Est GFR ( Amer) 87, Glucose 153 H, Calcium 8.4, Total Bilirubin 1.0, AST 66 H, ALT 36, Alkaline Phosphatase 114, Total Protein 6.2 L, Albumin 2.6 L, Globulin 3.6 H, Albumin/Globulin Ratio 0.7 L 08/14/21 10:31: Stool Occult Blood Positive A Result diagrams: 08/14/21 09:55 08/14/21 09:55 Orders (Tests/Meds): ORDERS Category Date Time Status Type and Screen Stat BBK 08/14/21 09:44 Ordered Medical Decision Narrative: Patient evaluated for bright red bleeding per rectum. Patient no acute distress on initial evaluation. Her physical exam is unremarkable. Chart review reveals the patient has some chronic GI bleed with underlying portal hypertension. Patient's H/H are stable, actually better, than her last evaluation here. I have a lower level of concern for this patient as she has had a bowel movement in the emergency department and denies seeing any bright red blood per rectum at that time. Differential gnosis includes was not limited to: Lower GI bleed, fissure, hemorrhoid. Patient's vital signs are stable. She is appropriate stable for discharge home and I have asked her to follow-up with her casting carrier this week. General Adult HPI - General Chief complaint: PAIN Stated complaint: passing blood Time Seen by Provider: 08/14/21 10:00 Mode of Arrival: Ambulatory Limitations: No Limitations Description of Symptoms (Recalled from ER Triage Doc. by RN): Pt advises around 9am she went to the bathroom and wiped her bottom and noticed bright red blood on the toilet paper. Denies any abd pain/ N/V. Advises it only happened once. - History of Present Illness HPI narrative: 66yo F presents the emergency department secondary to bright red blood per rectum. Patient reports she had 1 episode of bright red blood per rectum earlier this morning. She was admitted in June for GI bleed and evaluated by GI. No scope was completed at that time as the patient was hemodynamically stable after receiving blood. Minnie
[2021-08-14 11:29] VITALS: BP 150/62; PULSE 60; RESP 16; TEMP 36.6; O2SAT 93
== END 2021-08-14 11:29 | disposition home or self-care (01) ==
PROVIDERS: Emergency Provider Family Medicine; PCP Family Medicine
DX: K62.5 Hemorrhage of anus and rectum (principal); I10 Essential (primary) hypertension; M81.0 Age-related osteoporosis without current pathological fracture; E78.5 Hyperlipidemia, unspecified; Z88.0 Allergy status to penicillin; Z88.5 Allergy status to narcotic agent; Z79.899 Other long term (current) drug therapy
CPT/HCPCS: 36415; 80053; 82272; 85025; 99282; G0328

== ENCOUNTER → 2021-09-26 07:09 | Outpatient (CLI) | payer MEDICARE, SELFPAY ==
[2021-09-26 07:48] LABS: Hematocrit 37.1 % (37.0-47.0); Mean Corpuscular HGB Conc 32.4 g/dL (31.8-35.4); Mean Corpuscular Hemoglobin 27.2 pg (27.0-31.2); Platelet Count 58 K/mm3 (142-424); Red Blood Count 4.42 M/mm3 (4.20-5.40); Red Cell Distribution Width 17.1 % (11.5-17.5); White Blood Count 1.9 K/mm3 (4.8-10.8)
[2021-09-26 07:56] LABS: INR 1.15 (0.9-1.1); Prothrombin Time 12.9 seconds (10.1-12.5)
[2021-09-26 08:16] LABS: Alanine Aminotransferase 47 U/L (12-78); Albumin Level 2.9 g/dl (3.5-5.0); Albumin/Globulin Ratio 0.9 (1.1-1.8); Alkaline Phosphatase 121 U/L (38-126); Anion Gap 6.5 mEq/L (5-15); Aspartate Amino Transferase 86 U/L (14-36); Bilirubin,Total 0.8 mg/dl (0.2-1.3); Blood Urea Nitrogen 16 mg/dl (7-17); Calcium 8.9 mg/dl (8.4-10.2); Carbon Dioxide 29 mmol/L (22.0-30.0); Chloride 107 mmol/L (98-107); Estimated Glomerular Filt Rate 100 ml/min (>60); GFR (African American) 121 ML/MIN (>60); Globulin 3.3 g/dL (1.3-3.2); Glucose 90 mg/dl (74-100); Potassium 3.5 mmoL/L (3.5-5.1); Sodium 139 mmol/L (136-145); Total Protein,Serum 6.2 g/dl (6.3-8.2)
[2021-09-27 11:11] LABS: Immunoglobulin G, Qn 1480 mg/dL (586-1602)
== END ==
PROVIDERS: Visit Provider Physician Assistant
DX: K74.69 Other cirrhosis of liver (principal)
CPT/HCPCS: 36415; 80053; 82784; 85014; 85018; 85048; 85049; 85610

== ENCOUNTER → 2021-10-08 07:18 | Outpatient (CLI) | payer MEDICARE, SELFPAY ==
--- NOTE | 2021-10-08 07:23 | US_ITS ---
PROCEDURE: US LIVER CLINICAL INDICATION: OTHER CIRRHOSIS OF LIVER COMPARISON: No exams were available for comparison FINDINGS: PANCREAS: Pancreatic tail is poorly visualized. SMV is prominent and splenic vein is slightly prominent. LIVER: Coarse echotexture of the liver with shrunken appearing liver with irregular margins consistent with cirrhosis. No focal liver lesion demonstrated. There is appropriate direction of blood flow within the portal vein which is upper limits of normal at 14 mm. RIGHT KIDNEY: Unremarkable. Normal size and echogenicity. No hydronephrosis GALLBLADDER: Small polyp in the gallbladder posteriorly and superiorly measuring 3 mm. This does not shadow and does not move on different positioning. There is minimal amount of pericholecystic fluid. Gallbladder slightly distended. No wall thickening.. No shadowing stones apparent. IMPRESSION: Findings compatible with cirrhosis with mildly prominent portal vein and dilated SMV. There is however appropriate direction of blood flow within the portal vein. Mildly distended gallbladder with minimal pericholecystic fluid and small gallbladder polyp Dictated by: Reynaldo Valentino MD 10/08/2021 10:12 Reynaldo Valentino MD in [place] 10/08/2021 10:12
== END ==
LOC: RAD 07:19
PROVIDERS: PCP Family Medicine; Visit Provider Physician Assistant
DX: K74.69 Other cirrhosis of liver (principal)
CPT/HCPCS: 76705

== ENCOUNTER → 2022-01-22 10:34 | Outpatient (CLI) | payer MEDICARE, SELFPAY ==
[2022-01-22 11:23] LABS: Basophils % 1.6 % (0.1-2.0); Eosinophils # 0.3 K/mm3 (0.0-0.4); Eosinophils % 11.6 % (0.1-12.0); Hematocrit 41.8 % (37.0-47.0); Hemoglobin 13.1 g/dL (12.2-16.2); Lymphocytes # 0.7 K/mm3 (0.7-4.5); Mean Corpuscular HGB Conc 31.3 g/dL (31.8-35.4); Mean Corpuscular Hemoglobin 28.6 pg (27.0-31.2); Mean Corpuscular Volume 91.5 fl (81-99); Mean Platelet Volume 9.8 fl (7.4-10.4); Monocytes # 0.1 K/mm3 (0.1-1.0); Monocytes % 5.1 % (1.7-9.3); Neutrophils # 1.2 K/mm3 (1.8-7.8); Neutrophils % 51.7 % (37.0-80.0); Platelet Count 54 K/mm3 (142-424); Red Blood Count 4.57 M/mm3 (4.20-5.40); Red Cell Distribution Width 15.2 % (11.5-17.5); White Blood Count 2.3 K/mm3 (4.8-10.8)
[2022-01-22 11:49] LABS: Chloride 110 mmol/L (98-107); Potassium 4.3 mmoL/L (3.5-5.1); Sodium 139 mmol/L (136-145)
[2022-01-22 11:51] LABS: Alanine Aminotransferase 50 U/L (12-78); Alkaline Phosphatase 149 U/L (38-126); Aspartate Amino Transferase 82 U/L (14-36); Bilirubin,Total 1.1 mg/dl (0.2-1.3); Blood Urea Nitrogen 17 mg/dl (7-17); Estimated Glomerular Filt Rate 71 ml/min (>60); GFR (African American) 86 ML/MIN (>60)
[2022-01-22 11:52] LABS: Albumin Level 2.9 g/dl (3.5-5.0); Albumin/Globulin Ratio 0.9 (1.1-1.8); Anion Gap 4.3 mEq/L (5-15); Calcium 8.4 mg/dl (8.4-10.2); Carbon Dioxide 29 mmol/L (22.0-30.0); Cholesterol 127 mg/dl (140-200); Globulin 3.4 g/dL (1.3-3.2); Glucose 90 mg/dl (74-100); Iron 94 ug/dL (37-170); Total Protein,Serum 6.3 g/dl (6.3-8.2); Triglycerides 70 mg/dl (30-150); VLDL Cholesterol 14 mg/dL (0-40)
[2022-01-22 12:02] LABS: Total Iron Binding Capacity 283 ug/dL (265-497)
[2022-01-22 12:03] LABS: Direct LDL Cholesterol 45.19 mg/dL (100-129)
[2022-01-22 16:18] LABS: Chol/HDL Ratio 2.3 (1-3.5); HDL Cholesterol 56 mg/dl (40-60)
== END ==
PROVIDERS: Visit Provider Nurse Practitioner Family
DX: I10 Essential (primary) hypertension (principal); D50.9 Iron deficiency anemia, unspecified; E78.5 Hyperlipidemia, unspecified; E87.6 Hypokalemia; K75.4 Autoimmune hepatitis
CPT/HCPCS: 36415; 80053; 80061; 83540; 83550; 85025

== ENCOUNTER → 2022-07-19 07:22 | Outpatient (CLI) | payer MEDICARE, SELFPAY ==
[2022-07-19 13:57] LABS: Iron 81 ug/dL (37-170)
[2022-07-19 14:04] LABS: Basophils % 0.9 % (0.1-2.0); Eosinophils # 0.2 K/mm3 (0.0-0.4); Eosinophils % 11.1 % (0.1-12.0); Hematocrit 39.3 % (37.0-47.0); Hemoglobin 12.8 g/dL (12.2-16.2); Lymphocytes # 0.6 K/mm3 (0.7-4.5); Lymphocytes % 30.8 % (10-50); Mean Corpuscular HGB Conc 32.7 g/dL (31.8-35.4); Mean Corpuscular Hemoglobin 29.2 pg (27.0-31.2); Mean Corpuscular Volume 89.4 fl (81-99); Mean Platelet Volume 18.5 fl (7.4-10.4); Monocytes # 0.1 K/mm3 (0.1-1.0); Monocytes % 7.4 % (1.7-9.3); Neutrophils # 0.9 K/mm3 (1.8-7.8); Neutrophils % 49.8 % (37.0-80.0); Red Blood Count 4.39 M/mm3 (4.20-5.40); Red Cell Distribution Width 17.2 % (11.5-17.5); White Blood Count 1.8 K/mm3 (4.8-10.8)
[2022-07-19 14:06] LABS: Total Iron Binding Capacity 243 ug/dL (265-497)
[2022-07-19 14:33] LABS: Ferritin 47.1 ng/ml (11.1-264)
[2022-07-19 14:45] LABS: Platelet Count 42 K/mm3 (142-424)
== END ==
PROVIDERS: PCP Family Medicine; Visit Provider Internal Medicine Medical Oncology
DX: K76.6 Portal hypertension (principal)
CPT/HCPCS: 36415; 82728; 83540; 83550; 85025

== ENCOUNTER → 2022-09-17 08:23 | Outpatient (CLI) | payer MEDICARE, SELFPAY ==
--- NOTE | 2022-09-17 08:33 | XR_ITS ---
FINAL REPORT CLINICAL HISTORY: knot at base of carpals FINDINGS: RIGHT HAND Two views of the right hand were obtained. There is no acute fracture or dislocation. There are advanced hypertrophic changes at the radiocarpal joint. There are mild hypertrophic changes at the basilar joint. There is a dorsal osteophyte apparently arising from the triquetrum. There is disproportionate hypertrophic change at the 4th D IP joint. There is subchondral sclerosis. There is no soft tissue abnormality. IMPRESSION: Moderately advanced osteoarthritis at the radiocarpal joint. Reviewed, Interpreted and Dictated by Melvin Zamora MD Transcribed by Tatiana Reza Authenticated and [facility]
== END ==
LOC: RAD 08:24
PROVIDERS: PCP Family Medicine; Visit Provider Family Medicine
DX: M79.641 Pain in right hand (principal)
CPT/HCPCS: 73120

== ENCOUNTER → 2022-12-11 07:52 | Outpatient (CLI) | payer MEDICARE, SELFPAY ==
--- NOTE | 2022-12-11 | XR_ITS ---
FINAL REPORT CLINICAL HISTORY: pain right knee and sood COMPARISON: None FINDINGS: RIGHT TIBIA/FIBULA Two views were obtained. There is no acute fracture or dislocation. There are moderate degenerative changes of the knee and mild degenerative changes of the ankle. A plantar calcaneal spur is noted. There is no soft tissue abnormality. IMPRESSION: Degenerative changes with no acute bony abnormality. Reviewed, Interpreted and Dictated by Liam Metz III, MD Transcribed by Karen Mora Authenticated and . [facility]
--- NOTE | 2022-12-11 09:23 | XR_ITS ---
FINAL REPORT CLINICAL HISTORY: fall FINDINGS: 2 views of the left humerus were obtained. There is no acute fracture or dislocation. The joint spaces appear intact. There is no acute soft tissue abnormality. IMPRESSION: No acute process. Reviewed, Interpreted and Dictated by Melvin Zamora MD Transcribed by Oli Villarreal Authenticated and [facility]
== END ==
PROVIDERS: PCP Family Medicine; Visit Provider Family Medicine
DX: M25.561 Pain in right knee (principal); M79.661 Pain in right lower leg
CPT/HCPCS: 73560; 73590

== ENCOUNTER → 2023-02-17 06:50 | Outpatient (CLI) | payer MEDICARE, SELFPAY ==
[2023-02-17 08:28] LABS: Basophils % 1.3 % (0.1-2.0); Eosinophils # 0.4 K/mm3 (0.0-0.4); Hematocrit 43.7 % (37.0-47.0); Lymphocytes # 0.7 K/mm3 (0.7-4.5); Lymphocytes % 25.7 % (10-50); Mean Corpuscular HGB Conc 31.9 g/dL (31.8-35.4); Mean Corpuscular Hemoglobin 27.8 pg (27.0-31.2); Mean Platelet Volume 8.9 fl (7.4-10.4); Monocytes # 0.2 K/mm3 (0.1-1.0); Monocytes % 6.8 % (1.7-9.3); Neutrophils # 1.3 K/mm3 (1.8-7.8); Neutrophils % 49.1 % (37.0-80.0); Red Blood Count 5.03 M/mm3 (4.20-5.40); Red Cell Distribution Width 14.9 % (11.5-17.5); White Blood Count 2.6 K/mm3 (4.8-10.8)
[2023-02-17 08:39] LABS: Platelet Count 44 K/mm3 (142-424)
== END ==
PROVIDERS: PCP Family Medicine; Visit Provider Internal Medicine Medical Oncology
DX: I10 Essential (primary) hypertension (principal)
CPT/HCPCS: 36415; 85025

== ENCOUNTER → 2023-08-18 10:30 | Outpatient (CLI) | payer MEDICARE, SELFPAY ==
[2023-08-18 11:37] LABS: Basophils % 1.1 % (0.1-2.0); Eosinophils # 0.2 K/mm3 (0.0-0.4); Eosinophils % 9.7 % (0.1-12.0); Hematocrit 42.5 % (37.0-47.0); Hemoglobin 13.5 g/dL (12.2-16.2); Lymphocytes # 0.7 K/mm3 (0.7-4.5); Lymphocytes % 33.8 % (10-50); Mean Corpuscular HGB Conc 31.8 g/dL (31.8-35.4); Mean Corpuscular Volume 91.2 fl (81-99); Mean Platelet Volume 9.1 fl (7.4-10.4); Monocytes # 0.1 K/mm3 (0.1-1.0); Monocytes % 6.6 % (1.7-9.3); Neutrophils % 48.9 % (37.0-80.0); Red Blood Count 4.66 M/mm3 (4.20-5.40); Red Cell Distribution Width 15.1 % (11.5-17.5)
[2023-08-18 12:39] LABS: Platelet Count 38 K/mm3 (142-424)
[2023-08-18 12:53] LABS: Iron 92 ug/dL (37-170)
[2023-08-18 13:02] LABS: Total Iron Binding Capacity 225 ug/dL (265-497)
[2023-08-18 13:31] LABS: Ferritin 94.4 ng/ml (11.1-264)
== END ==
PROVIDERS: PCP Family Medicine; Visit Provider Internal Medicine Medical Oncology
DX: D69.9 Hemorrhagic condition, unspecified (principal)
CPT/HCPCS: 36415; 82728; 83540; 83550; 85025

== ENCOUNTER 2024-01-20 19:07 | Outpatient (CLI) | payer MEDICARE, SELFPAY ==
[2024-01-20 16:35] LABS: Basophils % 1.2 % (0.1-2.0); Eosinophils # 0.1 K/mm3 (0.0-0.4); Eosinophils % 7.8 % (0.1-12.0); Hematocrit 40.8 % (37.0-47.0); Hemoglobin 13.2 g/dL (12.2-16.2); Lymphocytes # 0.5 K/mm3 (0.7-4.5); Lymphocytes % 25.1 % (10-50); Mean Corpuscular HGB Conc 32.3 g/dL (31.8-35.4); Mean Corpuscular Hemoglobin 29.9 pg (27.0-31.2); Mean Corpuscular Volume 92.5 fl (81-99); Mean Platelet Volume 10.6 fl (7.4-10.4); Monocytes # 0.1 K/mm3 (0.1-1.0); Monocytes % 6.2 % (1.7-9.3); Neutrophils # 1.1 K/mm3 (1.8-7.8); Neutrophils % 59.7 % (37.0-80.0); Red Blood Count 4.41 M/mm3 (4.20-5.40); Red Cell Distribution Width 16.5 % (11.5-17.5); Reticulocyte % (Auto) 2.3 % (0.9-3.2); White Blood Count 1.8 K/mm3 (4.8-10.8)
[2024-01-20 16:44] LABS: Alanine Aminotransferase 36 U/L (12-78); Albumin Level 2.6 g/dl (3.5-5.0); Albumin/Globulin Ratio 0.8 (1.1-1.8); Alkaline Phosphatase 146 U/L (38-126); Aspartate Amino Transferase 69 U/L (14-36); Bilirubin,Total 1.4 mg/dl (0.2-1.3); Blood Urea Nitrogen 16 mg/dl (7-17); Calcium 8.5 mg/dl (8.4-10.2); Carbon Dioxide 27 mmol/L (22.0-30.0); Chloride 108 mmol/L (98-107); Estimated Glomerular Filt Rate 99 ml/min (>60); GFR (African American) 120 ML/MIN (>60); Globulin 3.4 g/dL (1.3-3.2); Glucose 98 mg/dl (74-100); Sodium 138 mmol/L (136-145)
[2024-01-20 16:58] LABS: Platelet Count 49 K/mm3 (142-424)
== END 2024-01-20 23:59 ==
LOC: LAB.DROPOF 19:07
PROVIDERS: PCP Family Medicine; Visit Provider Family Medicine
DX: I10 Essential (primary) hypertension (principal); D50.0 Iron deficiency anemia secondary to blood loss (chronic)
CPT/HCPCS: 80053; 85025; 85044

== ENCOUNTER 2024-03-16 08:14 | Outpatient (CLI) | payer MEDICARE, SELFPAY ==
[2024-03-16 08:40] LABS: Basophils % 1.5 % (0.1-2.0); Eosinophils # 0.3 K/mm3 (0.0-0.4); Eosinophils % 11.9 % (0.1-12.0); Hematocrit 41.3 % (37.0-47.0); Hemoglobin 12.8 g/dL (12.2-16.2); Lymphocytes # 0.6 K/mm3 (0.7-4.5); Lymphocytes % 26.4 % (10-50); Mean Corpuscular Hemoglobin 28.9 pg (27.0-31.2); Mean Corpuscular Volume 93.3 fl (81-99); Monocytes # 0.1 K/mm3 (0.1-1.0); Monocytes % 5.8 % (1.7-9.3); Neutrophils # 1.3 K/mm3 (1.8-7.8); Neutrophils % 54.4 % (37.0-80.0); Platelet Count 54 K/mm3 (142-424); Red Blood Count 4.43 M/mm3 (4.20-5.40); White Blood Count 2.3 K/mm3 (4.8-10.8)
[2024-03-16 09:19] LABS: Alanine Aminotransferase 33 U/L (12-78); Albumin Level 2.5 g/dl (3.5-5.0); Albumin/Globulin Ratio 0.8 (1.1-1.8); Alkaline Phosphatase 144 U/L (38-126); Anion Gap 8.8 mEq/L (5-15); Aspartate Amino Transferase 55 U/L (14-36); Bilirubin,Total 1.3 mg/dl (0.2-1.3); Blood Urea Nitrogen 18 mg/dl (7-17); Calcium 8.7 mg/dl (8.4-10.2); Carbon Dioxide 31 mmol/L (22.0-30.0); Chloride 105 mmol/L (98-107); Estimated Glomerular Filt Rate 83 ml/min (>60); GFR (African American) 100 ML/MIN (>60); Globulin 3.3 g/dL (1.3-3.2); Glucose 98 mg/dl (74-100); Potassium 3.8 mmoL/L (3.5-5.1); Sodium 141 mmol/L (136-145); Total Protein,Serum 5.8 g/dl (6.3-8.2)
== END 2024-03-16 23:59 | disposition home or self-care (01) ==
LOC: LAB 08:16
PROVIDERS: PCP Family Medicine; Visit Provider Internal Medicine Medical Oncology
DX: D75.9 Disease of blood and blood-forming organs, unspecified (principal)
CPT/HCPCS: 36415; 80053; 85025

== ENCOUNTER 2024-03-22 11:43 | Outpatient (CLI) | payer MEDICARE, SELFPAY ==
--- NOTE | 2024-03-22 11:51 | XR_ITS ---
FINAL REPORT CLINICAL HISTORY: right neck pain FINDINGS: CERVICAL SPINE SERIES Three views demonstrate no acute fracture. Mild degenerative changes are noted. The vertebral body demonstrates normal height.. There is no malalignment. IMPRESSION: No acute process. Reviewed, Interpreted and Dictated by Liam Metz III, MD Transcribed by Ursula Christensen Authenticated and [facility]
== END 2024-03-22 23:59 | disposition home or self-care (01) ==
PROVIDERS: PCP Family Medicine; Visit Provider Family Medicine
DX: M54.2 Cervicalgia (principal)
CPT/HCPCS: 72040

== ENCOUNTER 2024-09-01 09:17 | Emergency (ER) | payer MEDICARE, SELFPAY ==
[2024-09-01] VITALS (10 sets, daily range): BP systolic 140–188; BP diastolic 46–89; PULSE 51–70; RESP 13–14; TEMP 36.6–36.8; O2SAT 92–99; BMI 33.0
--- NOTE | 2024-09-01 09:31 | CT_ITS ---
PROCEDURE INFORMATION: Exam: CT Abdomen And Pelvis With Contrast Exam date and time: 09/01/2024 10:21 AM Age: 69 years old Clinical indication: Other: R low abd wall hernia vs abscess, draining pus TECHNIQUE: Imaging protocol: Computed tomography of the abdomen and pelvis with contrast. Radiation optimization: All CT scans at this facility use at least one of these dose optimization techniques: automated exposure control; mA and/or kV adjustment per patient size (includes targeted exams where dose is matched to clinical indication); or iterative reconstruction. Contrast material: ISOVUE; Contrast volume: 75 ml; Contrast route: IV; COMPARISON: US LIVER 10/08/2021 7:51 AM FINDINGS: Pleural spaces: Small left pleural effusion Esophagus: Extensive gastric and esophageal varicosities. Liver: Cirrhotic liver. Gallbladder and biliary ducts: Marked gallbladder distension surrounding inflammatory change. Pancreas: Normal. No ductal dilation. Spleen: Splenomegaly Adrenal glands: Normal. No mass. Kidneys and ureters: Normal. No hydronephrosis. Stomach and bowel: Abnormal wall thickening of the cecum and ascending colon. Colitis not excluded. Appendix: No evidence of appendicitis. Intraperitoneal space: Small amount of abdominal and pelvic ascites. Vasculature: Thrombosis of the portal vein. No abdominal aortic aneurysm. Lymph nodes: Unremarkable. No enlarged lymph nodes. Urinary bladder: Unremarkable as visualized. Reproductive: Unremarkable as visualized. Bones/joints: Degenerative change of the lumbar spine and hip joints. Soft tissues: Ventral wall hernia containing small and large bowel. No evidence of obstruction. Diffuse anasarca IMPRESSION: 1. Cirrhotic liver with portal vein thrombosis. There is marked splenomegaly. There are marked gastric and esophageal varicosities. 2. Ventral wall hernia containing small and large bowel. No evidence of obstruction. There is abnormal wall thickening/mucosal edema of the cecum/ascending colon. Nonspecific colitis not excluded. 3. Distended gallbladder with pericholecystic fluid. 4. Small left pleural effusion
--- NOTE | 2024-09-01 09:32 | ED_ITS ---
Discharge Plan Disposition Patient Disposition: Xfer Short-Term Hosp Prescriptions Prescriptions: No Action calcium citrate-vitamin D3 [Citracal + D Maximum] 315-250 mg-unit tablet 1 tab PO DAILY loratadine 10 mg capsule 10 mg PO DAILY ferrous sulfate 325 mg (65 mg iron) tablet 325 mg PO BID nadolol 40 mg tablet See Rx Instructions .ROUTE .COMPLEX Qty: 30 3RF Dose Instruction: TAKE 1 TABLET BY MOUTH DAILY Rx Instructions: TAKE 1 TABLET BY MOUTH DAILY methocarbamol 500 mg tablet 500 mg PO TID Qty: 30 1RF triamterene-hydrochlorothiazid 75-50 mg tablet See Rx Instructions .ROUTE .COMPLEX Qty: 30 2RF Dose Instruction: TAKE 1 TABLET BY MOUTH DAILY FOR FLUID Rx Instructions: TAKE 1 TABLET BY MOUTH DAILY FOR FLUID ursodiol 500 mg tablet 500 mg PO BID 30 Days Qty: 60 2RF potassium chloride 10 mEq tablet extended release See Rx Instructions .ROUTE .COMPLEX Qty: 90 0RF Dose Instruction: TAKE 1 TABLET BY MOUTH THREE TIMES DAILY FOR SUPPLEMENT Rx Instructions: TAKE 1 TABLET BY MOUTH THREE TIMES DAILY FOR SUPPLEMENT Referrals Follow up/Referrals: Deni Sheppard MD [Primary Care Provider] - See instructions Clinical Impressions Clinical Impression: Hernia, ventral, Abdominal wall cellulitis, Leukopenia, Thrombocytopenia Print Language Print Language: Icelandic Discharge ED Provider: Lore Maharaj General Adult HPI General Chief complaint: Recheck/Abnormal Lab/Rx Stated complaint: sent by [facility] for infection Time Seen by Provider: 09/01/24 09:23 Mode of Arrival: Ambulatory Source of Information: Patient Limitations: No Limitations Description of Symptoms (Recalled from ER Triage Doc. by RN): pt presents to ED with c/o abd wound drainage. pt sent over by pcp office, dr sheppard. pt reports that she does have umbilical hernia. pt reports drainage from wound on hernia since friday. History of Present Illness HPI narrative: This patient is a 69-year-old female with a history of hypertension, hyperlipidemia, autoimmune hepatitis with cirrhosis, portal hypertension, esophageal varices with history of GI bleed, and chronic anemia presenting to the emergency department for evaluation with concern for a wound to her right lower abdominal wall that is draining white stuff . She notes she has a history of hernia that is been there for a long time, but she states that she just started having drainage from an area on her right lower quadrant on Saturday. No fevers, chills, abdominal pain, nausea, vomiting, changes in bowel movements, or other concerns. She still having normal bowel movements and passing gas. She saw her PCP today presenting with concern for possible infection. Related Data Home Medications ?Medication ?Instructions ?Recorded ?Confirmed calcium 315 mg (as 1 tab PO DAILY Supplement 01/15/18 09/01/24 citrate)-vitamin D3 6.25 mcg (250 unit) tablet (Citracal + Vitamin D Maximum) loratadine 10 mg capsule 10 mg PO DAILY Allergy symptoms 01/15/18 09/01/24 ferrous sulfate 325 mg (65 mg 325 mg PO BID Supplement 09/28/20 09/01/24 iron) tablet Previous Rx's ?Medication ?Instructions ?Recorded nadolol 40 mg tablet See Rx Instructions .Route 01/20/24 .COMPLEX #30 tabs methocarbamol 500 mg tablet 500 mg PO TID neck pain #30 tabs 04/12/24 triamterene 75 See Rx Instructions .Route 05/25/24 mg-hydrochlorothiazide 50 mg tablet .COMPLEX #30 tabs ursodiol 500 mg tablet 500 mg PO BID Gallstones 30 days 05/25/24 #60 tabs potassium chloride 10 mEq See Rx Instructions .Route 08/11/24 tablet,extended release .COMPLEX #90 tabs Allergies Allergy/AdvReac Type Severity Reaction Status Date / Time Penicillins Allergy Severe I-HIVES Verified 09/01/24 08:16 prednisone Allergy Severe S-DIFF. Verified 09/01/24 08:16 BREATHING Sulfa (Sulfonamide Allergy Severe S-ANAPHYLAX Verified 09/01/24 08:16 Antibiotics) IS [SULFA (SULFONAMIDE ANTIBIOTICS)] sulfamethoxazole Allergy Severe S-DIFF. Verified 09/01/24 08:16 [From Bactrim] BREATHING trimethoprim [From Bactrim] Allergy Severe S-DIFF. Verified 09/01/24 08:16 BREATHING cefdinir Allergy rash Verified 09/01/24 08:16 ibuprofen Allergy liver Verified 09/01/24 08:16 issues naproxen [From Aleve] Allergy liver Verified 09/01/24 08:16 [facility] Disclaimer: The information contained in this section may have been updated after the patient was seen, as this information can be updated by other users. Medical History FH: polycystic ovary Blood loss anemia GI bleeding Cytopenia Splenomegaly Portal hypertension Cirrhosis Autoimmune hepatitis Hyperlipidemia Hypertension Hepatitis Esophageal varices with bleeding Hematemesis Surgical History H/O dilation and curettage History of carpal tunnel release History of bilateral tubal ligation Family History Mother Diabetes Hypertension Heart attack Father Coronary artery disease Sister Cancer Social History Smoking Status: Never smoker alcohol intake: never substance use type: denies use current occupational status: unemployed and disabled Travel in the last 8 weeks: None household members: spouse housing: apartment caffeine: Yes Other Medical History Have you received the Flu Vaccine for this season: Yes Have you received the Pneumonia Vaccine: No ROS Obtained: Yes All systems reviewed & no additional complaints except as documented Physical Exam General General appearance: alert and in no apparent distress Head Head exam: atraumatic and normocephalic Eye Eye exam: Present normal appearance, PERRL and EOMI ENT ENT exam: Present normal exam, normal oropharynx, mucous membranes moist and normal external ear exam Neck Neck exam: Present normal inspection, full ROM and trachea midline; Absent tenderness Chest Chest inspection: Present normal inspection and symmetric chest wall rise; Absent tenderness Respiratory Respiratory exam: Present normal lung sounds bilaterally; Absent respiratory distress, wheezes, stridor or accessory muscle use Cardiovascular Cardiovascular exam: Present regular rate and normal rhythm Abdominal Exam Abdominal exam: Present soft and hernia; Absent distention, guarding, rebound or rigidity Comment: nontender area of fluctuance on RLQ without active drainage, but patient did have bangages with drainage on them. No significant surrounding erythema or warmth Extremities Exam Extremities exam: Present normal inspection, full ROM and normal capillary refill; Absent tenderness or edema Back Exam Back exam: Present normal inspection and full ROM; Absent tenderness Neurological Exam Neurological exam: Present alert, oriented X3, CN II-XII intact and normal gait; Absent motor sensory deficit Psychiatric Psychiatric exam: Present normal affect and normal mood Skin Skin exam: Present warm and dry Medical Decision Making Medical Records Medical records reviewed: Yes I reviewed the patient's medical records. Screening: Per USPSTF and CDC recommendations, given the prevalence of disease in our region, it is our hospital?s policy to screen for HIV and viral Hepatitis for all patients aged 18 and over and those with ongoing risk factors. Yogesh Inquiry Pt receiving controlled substance: No Vital Signs: 09/01/24 09:18 09/01/24 09:23 09/01/24 09:41 Temperature 97.8 F Temperature Source Oral Pulse Rate 65 54 L Pulse Rate [Left Radial] 67 Respiratory Rate 14 Blood Pressure 188/89 H 151/56 H Blood Pressure [Right Arm] 188/89 H Blood Pressure Mean [Right Arm] 122 02 Sat by Pulse Oximetry 97 92 L 98 Oxygen Delivery Method Room Air 09/01/24 10:00 09/01/24 10:41 09/01/24 10:46 Temperature 98.2 F Temperature Source Oral Pulse Rate 70 56 L Pulse Rate [Left Radial] Respiratory Rate Blood Pressure 158/60 H 140/53 L Blood Pressure [Right Arm] Blood Pressure Mean [Right Arm] 02 Sat by Pulse Oximetry 98 98 Oxygen Delivery Method 09/01/24 11:01 09/01/24 13:23 Temperature Temperature Source Pulse Rate 51 L 52 L Pulse Rate [Left Radial] Respiratory Rate Blood Pressure 140/46 L 153/63 H Blood Pressure [Right Arm] Blood Pressure Mean [Right Arm] 02 Sat by Pulse Oximetry 99 98 Oxygen Delivery Method Room Air Lab Data Lab results reviewed: Yes I reviewed the patient's lab results. Lab Results 09/01/24 09:36: WBC 1.9 L*, RBC 4.38, Hgb 12.8, Hct 37.9, MCV 86.5, MCH 29.1, MCHC 33.6, RDW 16.0, Plt Count 32 L*, MPV 9.3, Neut % (Auto) 53.9, Lymph % (Auto) 23.6, [place] % (Auto) 7.9, Eos % (Auto) 13.0 H, Baso % (Auto) 1.5, Neut # (Auto) 1.0 L, Lymph # (Auto) 0.5 L, [place] # (Auto) 0.2, Eos # (Auto) 0.3, Baso # (Auto) 0.0, PT 13.6 H, INR 1.24 H, Sodium 134 L, Potassium 4.2, Chloride 103, Carbon Dioxide 26, Anion Gap 9.2, BUN 17, Creatinine 0.60, Estimated Creat Clear 57, Estimated GFR 99, Est GFR ( Amer) 120, Glucose 97, Calcium 9.1, Total Bilirubin 1.4 H, AST 75 H, ALT 47, Alkaline Phosphatase 114, Total Protein 6.0 L , Albumin 2.8 L, Globulin 3.2, Albumin/Globulin Ratio 0.9 L 09/01/24 09:58: Lactate 0.7 09/01/24 09:36 09/01/24 09:36 Orders (Tests/Meds): ED MEDICATIONS Generic Name Dose Route Start Last Admin Trade Name Freq PRN Reason Stop Dose Admin Cefepime HCl 2 gm/ Sodium 100 mls @ 200 mls/hr 09/01/24 13:09 09/01/24 13:21 Chloride IV 09/01/24 13:38 200 mls/hr ONCE ONE Administration Metronidazole 500 mg in 100 mls @ 100 mls/hr 09/01/24 13:09 Flagyl 500mg/100ml Ivpb IV 09/01/24 14:08 ONCE ONE Discontinued Medications Generic Name Dose Route Start Last Admin Trade Name Freq PRN Reason Stop Dose Admin Iopamidol 75 ml 09/01/24 10:27 09/01/24 10:27 Iopamidol-370 (76%);100ml Bottle IV 09/01/24 10:28 75 ml ONCE ONE Administration Sodium Chloride 10 ml 09/01/24 10:27 09/01/24 10:27 Sodium Chloride 0.9% 10ml Syr (Rad Only) IV 09/01/24 10:28 10 ml ONCE ONE Administration ORDERS Category Date Time Status CT abdomen pelvis w con Stat Cat Scan 09/01/24 09:31 Completed General Surgery Consult [Consult to General Surgery] [ Cons 09/01/24 11:18 Ordered CONS] Stat Complete Blood Count Auto Diff Stat Lab 09/01/24 09:36 Completed Comprehensive Metabolic Panel Stat Lab 09/01/24 09:36 Completed HIV (1&2) Antibody Rapid Stat Lab 09/01/24 09:36 Received Hep C Ab with Reflex to RNA Stat Lab 09/01/24 09:36 Received INR [Prothrombin Time INR] Stat Lab 09/01/24 09:36 Completed Lactic Acid Stat Lab 09/01/24 09:58 Completed Blood Culture Stat Micro 09/01/24 10:03 Received Medical Decision Narrative: In summary, this patient is a 69-year-old female presenting to the Emergency Department for evaluation of swelling and drainage to her right lower quadrant of her abdomen. Differential diagnoses considered include but are not limited to cellulitis, abscess, hernia. Ruling out the most morbid conditions drove assessment. It should be noted patient's history includes cirrhosis, hypertension, and hyperlipidemia which may or may not be at goal therapy. This complicates all aspects of care by increasing patient's risk for morbidity. I reviewed patient's past medical records and noted previous evaluations by PCP including evaluation today. Also saw oncology referral for anemia. On exam, the patient is lying in bed in no acute distress. She has no abdominal tenderness. She does have an area of fluctuance to right lower quadrant that is not actively draining but reportedly has been. Workup included CBC, CMP, INR, and CT abdomen pelvis with IV contrast. Patient denies any concerns or complaints of pain send no medications given at this time. I independently interpreted CT scan prior to the radiologist read and noted bowel and fluid containing hernia in the right lower quadrant without evidence of obstruction. Please see their read for final interpretation. They did note concern for mild colitis. Labs were obtained that demonstrated chronic leukopenia/neutropenia, chronic thrombocytopenia, elevated INR 1.24, mild hyponatremia 134. On reassessment, the patient remains asymptomatic with reassuring vital signs and cardiac telemetry. I had an interactive discussion with Dr. Duran with general surgery regarding her hernia that is leaking into the environment and he advised he recommended transfer to higher level of care such as with her advanced liver disease. I then called and spoke with Dr. Castañeda in the transfer center who advised that surgery recommended bringing the patient to [place] ED for evaluation because she is very high risk for sepsis given that her abdomen essentially open to the air. Dressing was applied to her abdomen and she was given IV cefepime and Flagyl. She is allergic to penicillins, but her allergic reaction is rash. She will be monitored. I had discussion with the patient regarding need for transfer to as she is high risk for decompensation, sepsis, and even . She stated that she is not going to today because no one would be able to drive down there to be with her. I advised her that we would transport her by EMS because of the emergent nature of this illness, but she states she is not going by herself. She told me to call her Sister Enriqueta, and I attempted to call her sister without answer. Will continue trying. I had multiple discussions with the patient regarding the fact that it is unsafe to go home. We did finally get in contact with her sisters who advised that they would meet her at . Because of this, patient is now agreeable to be transferred. EMS transport was arranged, and she was transferred in stable condition. Critical Care Critical Care Time Critical Care Time: No
[2024-09-01 09:45] LABS: Basophils % 1.5 % (0.1-2.0); Eosinophils # 0.3 K/mm3 (0.0-0.4); Hematocrit 37.9 % (37.0-47.0); Hemoglobin 12.8 g/dL (12.2-16.2); Lymphocytes # 0.5 K/mm3 (0.7-4.5); Lymphocytes % 23.6 % (10-50); Mean Corpuscular HGB Conc 33.6 g/dL (31.8-35.4); Mean Corpuscular Hemoglobin 29.1 pg (27.0-31.2); Mean Corpuscular Volume 86.5 fl (81-99); Mean Platelet Volume 9.3 fl (7.4-10.4); Monocytes # 0.2 K/mm3 (0.1-1.0); Monocytes % 7.9 % (1.7-9.3); Neutrophils % 53.9 % (37.0-80.0); Red Blood Count 4.38 M/mm3 (4.20-5.40); White Blood Count 1.9 K/mm3 (4.8-10.8)
[2024-09-01 09:49] LABS: Platelet Count 32 K/mm3 (142-424)
[2024-09-01 09:50] LABS: Albumin Level 2.8 g/dl (3.5-5.0); Chloride 103 mmol/L (98-107)
[2024-09-01 09:51] LABS: Potassium 4.2 mmoL/L (3.5-5.1); Sodium 134 mmol/L (136-145)
[2024-09-01 09:53] LABS: Alanine Aminotransferase 47 U/L (12-78); Blood Urea Nitrogen 17 mg/dl (7-17); Creatinine Clearance Estimated 57 mL/min (50-200); Estimated Glomerular Filt Rate 99 ml/min (>60); GFR (African American) 120 ML/MIN (>60)
[2024-09-01 09:54] LABS: Albumin/Globulin Ratio 0.9 (1.1-1.8); Alkaline Phosphatase 114 U/L (38-126); Anion Gap 9.2 mEq/L (5-15); Aspartate Amino Transferase 75 U/L (14-36); Bilirubin,Total 1.4 mg/dl (0.2-1.3); Calcium 9.1 mg/dl (8.4-10.2); Carbon Dioxide 26 mmol/L (22.0-30.0); Globulin 3.2 g/dL (1.3-3.2); Glucose 97 mg/dl (74-100); INR 1.24 (0.9-1.1); Prothrombin Time 13.6 seconds (10.1-12.5)
--- NOTE | 2024-09-01 09:54 | PC.NURSE ---
aware of critical platelet count for pt
[2024-09-01 10:16] LABS: Lactic Acid 0.7 mmol/L (0.7-2.1)
[2024-09-01] MEDS: SODIUM CHLORIDE 0.9% 10ML SYR (RAD ONLY) 10 ML IV (10:27)
[2024-09-01] MEDS: IOPAMIDOL-370 (76%);100ML BOTTLE 75 ML IV (10:27)
--- NOTE | 2024-09-01 10:32 | PC.NURSE ---
paged General surgery at this time
--- NOTE | 2024-09-01 11:59 | PC.NURSE ---
calling [facility] at this time.
--- NOTE | 2024-09-01 12:54 | PC.NURSE ---
o/p with at this time.
[2024-09-01] MEDS: CEFEPIME HCL 2 GM in 0.9 % SODIUM CHLORIDE 100 ML IV (13:21)
--- NOTE | 2024-09-01 13:21 | PC.NURSE ---
contacted [facility] per pt to see if someone can go to [place] with her for transfer
[2024-09-01] MEDS: METRONIDAZ/SOD CHL 500 MG/100 ML PIGGYBACK 100 MG IV (13:48)
[2024-09-01 16:50] LABS: HIV (1&2) Antibody Rapid NONREACTIVE (NONREACTIVE)
[2024-09-02 09:33] LABS: HCV Ab Non Reactive (Non Reactive)
== END 2024-09-01 18:39 | disposition short-term general hospital (02) ==
PROVIDERS: Emergency Provider Emergency Medicine; PCP Family Medicine
DX: L03.311 Cellulitis of abdominal wall (principal); D72.819 Decreased white blood cell count, unspecified; K43.9 Ventral hernia without obstruction or gangrene; D69.6 Thrombocytopenia, unspecified
CPT/HCPCS: 74177; 80053; 83605; 85025; 85610; 86803; 87040; 87389; 99285; Q9967

== ENCOUNTER 2025-01-06 11:10 | Outpatient (CLI) | payer MEDICARE, SELFPAY ==
[2025-01-06 19:01] LABS: Alanine Aminotransferase 43 U/L (12-78); Albumin Level 2.6 g/dl (3.5-5.0); Albumin/Globulin Ratio 0.8 (1.1-1.8); Alkaline Phosphatase 113 U/L (38-126); Anion Gap 6.2 mEq/L (5-15); Aspartate Amino Transferase 67 U/L (14-36); Bilirubin,Total 1.4 mg/dl (0.2-1.3); Blood Urea Nitrogen 20 mg/dl (7-17); Calcium 8.9 mg/dl (8.4-10.2); Carbon Dioxide 27 mmol/L (22.0-30.0); Chloride 108 mmol/L (98-107); Estimated Glomerular Filt Rate 71 ml/min (>60); GFR (African American) 86 ML/MIN (>60); Globulin 3.1 g/dL (1.3-3.2); Glucose 65 mg/dl (74-100); Potassium 4.2 mmoL/L (3.5-5.1); Sodium 137 mmol/L (136-145); Total Protein,Serum 5.7 g/dl (6.3-8.2)
[2025-01-06 19:12] LABS: T4 (Thyroxine) 7.3 ug/dl (5.53-11.0)
[2025-01-06 19:26] LABS: Thyroid Stimulating Hormone 2.14 uIU/mL (0.465-4.68)
== END 2025-01-06 23:59 | disposition home or self-care (01) ==
LOC: LAB.DROPOF 01-07 13:33
PROVIDERS: PCP Family Medicine; Visit Provider Family Medicine
DX: I10 Essential (primary) hypertension (principal); G47.00 Insomnia, unspecified
CPT/HCPCS: 80053; 84436; 84443

== ENCOUNTER 2025-10-19 08:16 | Outpatient (CLI) | payer MEDICARE, SELFPAY ==
[2025-10-19 09:11] LABS: Hematocrit 39.6 % (37.0-47.0); Hemoglobin 12.9 g/dL (12.2-16.2); Immature Granulocytes % 0.7 %; Mean Corpuscular HGB Conc 32.6 g/dL (31.8-35.4); Mean Corpuscular Hemoglobin 28.1 pg (27.0-31.2); Mean Corpuscular Volume 86.3 fl (81-99); Nucleated Red Blood Cells % 0 %; Platelet Count 67 K/mm3 (142-424); Red Blood Count 4.59 M/mm3 (4.20-5.40); Red Cell Distribution Width-SD 49.8 fL; White Blood Count 6.0 K/mm3 (4.8-10.8)
--- NOTE | 2025-10-19 10:18 | ECG_ITS ---
APPROVED REPORT Exam: Resting ECG HR:69 bpm ECG Measurements Heart Rate 69 AXES NV 170 P 79 QRSd 94 QRS 77 QT 410 T -6 QTc 429 Conclusion SINUS RHYTHM LOW QRS VOLTAGE IN PRECORDIAL LEADS [QRS DEFLECTION < 1.0 mV IN CHEST LEADS] ABNORMAL QRS-T ANGLE [QRS-T AXIS DIFFERENCE > 60] ABNORMAL ECG UNCONFIRMED REPORT Electronically signed by : James Simon MD 10/21/2025 08:07:32
[2025-10-19 10:29] LABS: Alanine Aminotransferase 114 U/L (12-78); Albumin Level 2.9 g/dl (3.5-5.0); Albumin/Globulin Ratio 0.8 (1.1-1.8); Alkaline Phosphatase 136 U/L (38-126); Anion Gap 17.6 mEq/L (5-15); Aspartate Amino Transferase 222 U/L (14-36); Bilirubin,Total 4.8 mg/dl (0.2-1.3); Blood Urea Nitrogen 36 mg/dl (7-17); Calcium 9.5 mg/dl (8.4-10.2); Carbon Dioxide 21 mmol/L (22.0-30.0); Chloride 104 mmol/L (98-107); Creatinine,Serum 1.70 mg/dl (0.52-1.04); Estimated Glomerular Filt Rate 30 ml/min (>60); GFR (African American) 36 ML/MIN (>60); Globulin 3.5 g/dL (1.3-3.2); Glucose 90 mg/dl (74-100); Potassium 4.6 mmoL/L (3.5-5.1); Sodium 138 mmol/L (136-145); Total Protein,Serum 6.4 g/dl (6.3-8.2)
== END 2025-10-19 23:59 | disposition home or self-care (01) ==
PROVIDERS: PCP Family Medicine; Visit Provider Family Medicine
DX: D69.6 Thrombocytopenia, unspecified (principal); D72.819 Decreased white blood cell count, unspecified; K43.9 Ventral hernia without obstruction or gangrene; R94.31 Abnormal electrocardiogram [ECG] [EKG]
CPT/HCPCS: 36415; 80053; 85025; 93005

== ENCOUNTER 2025-10-19 08:50 | Emergency (ER) | payer MEDICARE, SELFPAY ==
[2025-10-19] VITALS (11 sets, daily range): BP systolic 91–223; BP diastolic 28–190; PULSE 64–75; RESP 14–23; TEMP 36.5–36.7; O2SAT 94–100; BMI 30.2
--- NOTE | 2025-10-19 09:04 | ECG_ITS ---
APPROVED REPORT Exam: Resting ECG HR:70 bpm ECG Measurements Heart Rate 70 AXES NV 169 P 71 QRSd 93 QRS 63 QT 406 T 10 QTc 427 Conclusion SINUS RHYTHM WITH SINUS ARRHYTHMIA POSSIBLE LEFT ATRIAL ENLARGEMENT [-0.1mV P-WAVE IN V1/V2] LOW QRS VOLTAGE IN PRECORDIAL LEADS [QRS DEFLECTION < 1.0 mV IN CHEST LEADS] No STEMI Electronically signed by : ZAIDA WOLF, 10/21/2025 06:54:17
--- NOTE | 2025-10-19 09:08 | PC.NURSE ---
Dr. Tobin at [facility] for pt eval
--- NOTE | 2025-10-19 09:16 | ED_ITS ---
Discharge Plan Disposition Patient Disposition: Left Against Medical Advice Prescriptions Prescriptions: No Action calcium citrate-vitamin D3 [Citracal + D Maximum] 315-250 mg-unit tablet 1 tab PO DAILY loratadine 10 mg capsule 10 mg PO DAILY ferrous sulfate 325 mg (65 mg iron) tablet 325 mg PO BID Bengay Ultra Strength 4-30-10 % cream 1 applic topical BID PRN (Reason: muscle pain) Qty: 113 1RF ofloxacin 0.3 % drops 10 drp Ear-Both DAILY 7 Days Qty: 10 0RF triamterene-hydrochlorothiazid 75-50 mg tablet See Rx Instructions .ROUTE .COMPLEX Qty: 90 1RF Dose Instruction: TAKE 1 TABLET BY MOUTH DAILY FOR FLUID Rx Instructions: TAKE 1 TABLET BY MOUTH DAILY FOR FLUID potassium chloride 10 mEq tablet extended release See Rx Instructions .ROUTE .COMPLEX Qty: 90 3RF Dose Instruction: TAKE 1 TABLET BY MOUTH THREE TIMES DAILY FOR SUPPLEMENT Rx Instructions: TAKE 1 TABLET BY MOUTH THREE TIMES DAILY FOR SUPPLEMENT doxepin 10 mg capsule See Rx Instructions .ROUTE .COMPLEX Qty: 30 2RF Dose Instruction: TAKE 1 CAPSULE BY MOUTH AT BEDTIME FOR SLEEP Rx Instructions: TAKE 1 CAPSULE BY MOUTH AT BEDTIME FOR SLEEP nadolol 40 mg tablet See Rx Instructions .ROUTE .COMPLEX Qty: 30 2RF Dose Instruction: TAKE 1 TABLET BY MOUTH DAILY Rx Instructions: TAKE 1 TABLET BY MOUTH DAILY ursodiol 500 mg tablet See Rx Instructions .ROUTE .COMPLEX Qty: 60 1RF Dose Instruction: TAKE 1 TABLET BY MOUTH TWICE A DAY FOR GALLSTONES FOR 30 DAYS Rx Instructions: TAKE 1 TABLET BY MOUTH TWICE A DAY FOR GALLSTONES FOR 30 DAYS Referrals Follow up/Referrals: Deni Sheppard MD [Primary Care Provider, Internal Medicine] - See instructions Activity Restrictions/Add. Instructions Additional Instructions/Restrictions: As discussed you have multiple serious life-threatening problems 1 with your heart, 1 with the bottom of your throat, and 1 possibly in your abdomen. I recommended that you stay today to be evaluated but you are wanting to go home. You have capacity to make this decision. If you change your mind and want to come back to the emergency department at any point for continued evaluation please do not hesitate to do so. If you will not come back to the emergency department please call and schedule appoint with Dr. Puri (heart doctor) and Dr. Sanchez (gut doctor) as soon as you are able. Clinical Impressions Clinical Impression: Acute non-ST elevation myocardial infarction (NSTEMI), Esophageal mass, Gall bladder disease, Acidosis, lactic Print Language Print Language: Malawian Discharge ED Provider: Sage Tobin General Adult HPI General Chief complaint: Weakness Stated complaint: AO-Fall 10/17/25- weakness in legs, keeps falling Time Seen by Provider: 10/19/25 09:03 History of Present Illness HPI narrative: Patient is a 70-year-old female with past medical history of previous GI bleeding, anemia, hepatitis who presents to the emergency department for evaluation of weakness. Onset was subacute on chronic has been going on for at least a couple months. Patient has frequent falls and is on a walker. She has intact sensation denies changes to her lower extremities but is having difficulty completing her activities of daily living. She is accompanied by her usually when she falls that she slides herself to the ground from weakness. No chest pain, no abdominal pain, no head injuries, no extremity pain, no other acute complaints at this time. Please note that above description of symptoms, in this electronic medical record under categorization of recalled from ER triage doctor by RN are reflective of an initial nursing assessment, however, is not reflective of my full history and physical exam that was personally taken and clarified. Consequentially, this preceding description of symptoms, which may include the patient's categorized chief complaint in the EMR, do not reflect my personal clinical impression, and the ultimate description of history of present illness and patient stated complaints should be deferred to this section of the note. Unless stated otherwise or congruent with this section of the note, additional signs, symptoms, or incongruence should be interpreted as inaccurate with my clinical impression. Related Data Home Medications ?Medication ?Instructions ?Recorded ?Confirmed calcium 315 mg (as 1 tab PO DAILY Supplement 10/03/25 citrate)-vitamin D3 6.25 mcg (250 unit) tablet (Citracal + Vitamin D Maximum) loratadine 10 mg capsule 10 mg PO DAILY Allergy sympt oms 01/15/18 10/03/25 ferrous sulfate 325 mg (65 mg 325 mg PO BID Supplement 09/28/20 10/03/25 iron) tablet Previous Rx's ?Medication ?Instructions ?Recorded triamterene 75 See Rx Instructions .Route 0 06/08/25 mg-hydrochlorothiazide 50 mg tablet .COMPLEX #90 tabs potassium chloride 10 mEq See Rx Instructions .Route 0 07/13/25 tablet,extended release .COMPLEX #90 tabs camphor 4 %-methyl salicylate 30 1 applic topical BID PRN muscle 08/09/25 %-menthol 10 % topical cream pain #113 grams (Bengay Ultra Strength) doxepin 10 mg capsule See Rx Instructions .Route 1 .COMPLEX #30 caps ofloxacin 0.3 % ear drops 10 drp Ear-Both DAILY 7 days #10 mL 08/24/25 nadolol 40 mg tablet See Rx Instructions .Route 1 .COMPLEX #30 tabs ursodiol 500 mg tablet See Rx Instructions .Route 1 12/11/24 .COMPLEX #60 tabs Allergies Allergy/AdvReac Type Severity Reaction Status Date / Time Penicillins Allergy Severe I-HIVES Verified 10/03/25 08:37 prednisone Allergy Severe S-DIFF. Verified 10/03/25 08:37 BREATHING Sulfa (Sulfonamide Allergy Severe S-ANAPHYLAX Verified 10/03/25 08:37 Antibiotics) (SULFA IS (SULFONAMIDE ANTIBIOTICS)) sulfamethoxazole (From Allergy Severe S-DIFF. Verified 10/03/25 08:37 Bactrim) BREATHING trimethoprim (From Bactrim) Allergy Severe S-DIFF. Verified 10/03/25 08:37 BREATHING cefdinir Allergy rash Verified 10/03/25 08:37 ibuprofen Allergy liver Verified 10/03/25 08:37 issues naproxen (From Aleve) Allergy liver Verified 10/03/25 08:37 [facility] Disclaimer: The information contained in this section may have been updated after the patient was seen, as this information can be updated by other users. Medical History FH: polycystic ovary Blood loss anemia GI bleeding Cytopenia Splenomegaly Portal hypertension Cirrhosis Autoimmune hepatitis Hyperlipidemia Hypertension Hepatitis Esophageal varices with bleeding Hematemesis Surgical History H/O dilation and curettage History of carpal tunnel release History of bilateral tubal ligation Family History Mother Diabetes Hypertension Heart attack Father Coronary artery disease Sister Cancer Social History Smoking Status: Never smoker alcohol intake: never substance use type: denies use current occupational status: unemployed and disabled Travel in the last 8 weeks?: None household members: spouse housing: apartment caffeine: Yes Have you lived/traveled outside US in past 30 days?: No Contact w/someone who lives/traveled outside US past 30 days?: No Exposure to someone with infectious disease in past 14 days?: No Do you have a fever (greater than 100.4 F or 38 C)?: No Have you tested positive for COVID-19?: No Exposed to someone with COVID-19 in past 14 days?: No Do you have a sore throat?: No Do you have a cough?: No Do you have any weakness?: No Do you have any diarrhea?: No Are you experiencing any unusual bleeding?: No Do you have any muscle aches/pain?: No Do you have any abdominal pain?: No Are you experiencing loss of taste or smell?: No Other Medical History Have you received the Flu Vaccine for this season: Yes Have you received the Pneumonia Vaccine: Yes ROS Obtained: Yes Systems reviewed as appropriate & no additional complaints except as documented Physical Exam General General appearance: alert and in no apparent distress Head Head exam: atraumatic and normocephalic Eye Eye exam: Present PERRL and EOMI ENT ENT exam: Present mucous membranes moist Neck Neck exam: Present normal inspection Chest Chest inspection: Present normal inspection and symmetric chest wall rise Respiratory Respiratory exam: Present normal lung sounds bilaterally; Absent respiratory distress Cardiovascular Cardiovascular exam: Present regular rate and normal rhythm Abdominal Exam Abdominal exam: Present soft and distention (Periumbilical, suprapubic); Absent tenderness Extremities Exam Extremities exam: Absent normal inspection (Bruising left proximal upper extremity no affected range of motion or tenderness. 5 out of 5 strength BLE, palpable pulses dorsal pedal BLE. 2+ pitting edema BLE distal to the knees. Sensation intact light touch distally.) Neurological Exam Neurological exam: Present alert and CN II-XII intact Psychiatric Psychiatric exam: Present normal affect Skin Skin exam: Present warm and dry Medical Decision Making Medical Records Screening: Per USPSTF and CDC recommendations, given the prevalence of disease in our region, it is our hospital?s policy to screen for HIV and viral Hepatitis for all patients aged 18 and over and those with ongoing risk factors. Yogesh Inquiry Pt receiving controlled substance: No Vital Signs: 10/19/25 09:03 10/19/25 09:34 10/19/25 09:37 Temperature 97.7 F 97.7 F Temperature Source Oral Oral Pulse Rate 68 64 Pulse Rate [Right Radial] 68 Respiratory Rate 16 14 23 Blood Pressure 97/49 L 100/49 L Blood Pressure [Right Arm] 223/190 H Blood Pressure Mean [Right Arm] 201 Blood Pressure Source Automatic Cuff Blood Pressure Source [Right Arm] Automatic Cuff Blood Pressure Position Supine Blood Pressure Position [Right Arm] Supine 02 Sat by Pulse Oximetry 98 100 100 Oxygen Delivery Method Room Air Room Air Room Air 10/19/25 10:23 10/19/25 10:30 10/19/25 10:46 Temperature Temperature Source Pulse Rate Pulse Rate [Right Radial] Respiratory Rate 19 21 18 Blood Pressure 130/48 L 118/56 L 126/48 L Blood Pressure [Right Arm] Blood Pressure Mean [Right Arm] Blood Pressure Source Blood Pressure Source [Right Arm] Blood Pressure Position Blood Pressure Position [Right Arm] 02 Sat by Pulse Oximetry Oxygen Delivery Method 10/19/25 11:00 10/19/25 11:30 10/19/25 12:02 Temperature Temperature Source Pulse Rate Pulse Rate [Right Radial] Respiratory Rate 15 19 21 Blood Pressure 115/75 93/65 L 91/71 L Blood Pressure [Right Arm] Blood Pressure Mean [Right Arm] Blood Pressure Source Blood Pressure Source [Right Arm] Blood Pressure Position Blood Pressure Position [Right Arm] 02 Sat by Pulse Oximetry 96 96 Oxygen Delivery Method Room Air Room Air 10/19/25 12:45 Temperature Temperature Source Pulse Rate Pulse Rate [Right Radial] Respiratory Rate 17 Blood Pressure 102/28 L Blood Pressure [Right Arm] Blood Pressure Mean [Right Arm] Blood Pressure Source Blood Pressure Source [Right Arm] Blood Pressure Position Blood Pressure Position [Right Arm] 02 Sat by Pulse Oximetry 94 L Oxygen Delivery Method Room Air Lab Data Lab Results 10/19/25 09:07: WBC 5.9, RBC 4.71, Hgb 13.3, Hct 40.2, MCV 85.4, MCH 28.2, MCHC 33.1, RDW 15.8, Plt Count 65 L, MPV 12.7 H, Neut % (Auto) 71.8, Lymph % (Auto) 14.2, [place] % (Auto) 11.0 H, Eos % (Auto) 2.0, Baso % (Auto) 0.5, Neut # (Auto) 4.2, Lymph # (Auto) 0.8, [place] # (Auto) 0.7, Eos # (Auto) 0.1, Baso # (Auto) 0.0, Sodium 136, Potassium 4.6, Chloride 105, Carbon Dioxide 19 L, Anion Gap 16.6 H, BUN 38 H, Creatinine 1.70 H, Estimated Creat Clear 30, Estimated GFR 30 L, Est GFR ( Amer) 36 L, Glucose 97, Calcium 9.6, Magnesium 1.5 L, Total Bilirubin 4.9 H, AST 236 H, ALT 119 H, Alkaline Phosphatase 145 H, Troponin I 3.80 H, NT-Pro-B Natriuret Pep 9760 H, Total Protein 6.9, Albumin 3.0 L, G lobulin 3.9 H, Albumin/Globulin Ratio 0.8 L 10/19/25 10:05: VBG pH 7.28 L, VBG pCO2 42.3, VBG pO2 43.6 H, VBG HCO3 19.2 L, V BG Total CO2 20.5 L, VBG O2 Saturation 75.7 H, VBG Base Excess -7.6 L, VBG Lactic Acid 5.3 H 10/19/25 12:00: Urine Color Dark yellow, Urine Appearance Slightly cloudy, Urine pH 5.5, Ur Specific [place] 1.015, Urine Protein 2+ A, Urine Glucose (UA) Negative, Urine Ketones Negative, Urine Blood 3+ A, Urine Nitrate Negative, Urine Bilirubin Negative, Urine Urobilinogen 1.0, Ur Leukocyte Esterase Negative, Urine RBC 5-10, Urine WBC 3-5, Ur Squamous Epith Cells 3-5, Urine Bacteria Trace 10/19/25 12:11: Troponin I 2.94 H 10/19/25 09:07 10/19/25 09:07 Orders (Tests/Meds): ED MEDICATIONS Generic Name Dose Route Start Last Admin Trade Name Freq PRN Reason Stop Dose Admin Sodium Chloride 10 ml 10/19/25 10:19 10/19/25 10:20 Sodium Chloride 0.9% 10ml Syr (Rad Only) IV 11/18/25 10:18 10 ml NEEDED PRN Administration Maintain IV Site Discontinued Medications Generic Name Dose Route Start Last Admin Trade Name Freq PRN Reason Stop Dose Admin Aspirin 324 mg 10/19/25 11:42 10/19/25 12:02 Aspirin 81mg Chewable Tablet PO 10/19/25 11:43 Not Given ONCE ONE Iopamidol 100 ml 10/19/25 10:19 10/19/25 10:20 Iopamidol-370 (76%);100ml Bottle IV 10/19/25 10:20 100 ml ONCE ONE Administration ORDERS Category Date Time Status CT angio abdomen pelvis Stat Cat Scan 10/19/25 10:[address] angio chest - dissection Stat Cat Scan 10/19/25 09:[address] head/brain wo con Stat Cat Scan 10/19/25 09:18 Completed POCUS Point of Care (ER Only) Stat Exams 10/19/25 10:05 Completed BNP [NT Pro Brain Natriuretic Pep.] Stat Lab 10/19/25 09:07 Completed Bilirubin,Direct Stat Lab 10/19/25 09:07 Received CBC w/Auto Diff [Complete Blood Count Auto Diff] Stat Lab 10/19/25 09:07 Completed CMP [Comprehensive Metabolic Panel] Stat Lab 10/19/25 09:07 Completed HIV Combo Stat Lab 10/19/25 09:07 Received Hepatitis C Ab Qual. W/ RFX Stat Lab 10/19/25 09:07 Received Lipase Stat Lab 10/19/25 Received MG [Magnesium] Stat Lab 10/19/25 09:07 Completed Trop I [Troponin I] Stat Lab 10/19/25 09:07 Completed Trop T [Troponin I] Stat Lab 10/19/25 12:11 Completed UA [Urinalysis and Microscopic] Stat Lab 10/19/25 12:00 Completed VBG [Venous Blood Gas] Stat RT 10/19/25 10:05 Completed ECG Data Tracing #1: Independently interpreted by me rate is 70, rhythm is regular, axis is normal, no ST elevation in anatomical contiguous leads, QTc 427. Tracing #2: Independently interpreted by me rate is 69, rhythm is regular, axis is normal, no ST elevation in anatomical contiguous leads, Q waves in the septal leads, QTc 49. Medical Decision Narrative: In summary patient is a 70-year-old female with past medical history described above who presents emergency department for evaluation of weakness and worsening falls with decreased activities of daily living. Patient is hemodynamically stable and nontoxic-appearing upon arrival, afebrile. Patient has differential blood pressures of her extremities upon arrival significant right upper extremity hypertension and left upper extremity normotension. Differential diagnosis includes metabolic derangement, atypical ACS, dissection, heart failure, among others. She does have swelling over her abdomen which I suspect is a very large hernia and is nontender however workup in totality will be investigated with hematologic labs, noncontrasted CT scan of the head, CTA of the chest, abdomen, pelvis. EKG at bedside no STEMI. Initial hematologic labs reviewed by me no significant leukocytosis no transfusable anemia, patient is acidotic, has ELAINA from her baseline, mild hypomagnesemia. There is questionable debris's either in the lumen of the esophagus or density eccentric to the right of the esophagus at the level of the GE junction which may represent a mass or hematoma no evidence of aortic dissection. Troponin significantly elevated at 3.8. Gallbladder is very distended with associated stranding with a large ventral hernia containing 4 loops of bowel. Hematologic labs have ELAINA but evidence of heart failure with elevated BNP and volume overload on her lower extremities. Urinalysis interpreted by me and not consistent infection. Patient has significantly elevated bilirubin. Will add on lipase and direct bilirubin at this point. Upon repeat evaluation I was trying to convey the serious of the patient's condition to her and her and patient wants to go home. She understands that her heart needs further investigation and she may from this, the bottom of her esophagus needs investigation and she may from this and it is my recommendation that she stays in the hospital be evaluated by multiple specialist. Patient understands this is oriented to self, place, time and understands consequences of her decision has capacity. understands this as well. They both made joint decision and wish to go home at this time and will sign out AGAINST MEDICAL ADVICE. They understand that at any time if they are to change their mind they can return to the emergency department for continued evaluation. Critical Care Critical Care Time Critical Care Time: Yes Attestation: On 10/19/25, the high probability of a clinically significant, sudden or life threatening deterioration of the following system(s) required my full and direct attention, intervention and personal management. The time I documented below is in addition to time spent performing reported procedures but includes the following listed in this critical care notation. Total Time Total Critical Care Time: 35
--- NOTE | 2025-10-19 09:18 | CT_ITS ---
FINAL REPORT TECHNIQUE: multiple axial CT images were performed from the foramen magnum to the vertex without enhancement. Multiplanar reconstructions in the sagittal and coronal planes were subsequently performed. This study was performed with techniques to keep radiation doses as low as reasonably achievable (ALARA). Individualized dose reduction techniques using automated exposure control or adjustment of mA and/or kV according to the patient's size were employed. CLINICAL HISTORY: nicholas increased falls and weakness over the past week COMPARISON: None FINDINGS: The ventricles are mildly enlarged. There is mild diffuse atrophy, age-appropriate. There is no evidence of hemorrhage. No masses are identified. No extra-axial fluid is seen. There is mucoperiosteal thickening present in the maxillary sinuses bilaterally, consistent with chronic sinusitis. IMPRESSION: Mild atrophy and chronic changes without acute process. Reviewed, Interpreted and Dictated by Melvin Zamora MD Transcribed by Kayla Miller Authenticated and [facility]
[2025-10-19 09:23] LABS: Hematocrit 40.2 % (37.0-47.0); Hemoglobin 13.3 g/dL (12.2-16.2); Immature Granulocytes % 0.5 %; Mean Corpuscular HGB Conc 33.1 g/dL (31.8-35.4); Mean Corpuscular Hemoglobin 28.2 pg (27.0-31.2); Mean Corpuscular Volume 85.4 fl (81-99); Nucleated Red Blood Cells % 0 %; Platelet Count 65 K/mm3 (142-424); Red Blood Count 4.71 M/mm3 (4.20-5.40); Red Cell Distribution Width-SD 48.7 fL; White Blood Count 5.9 K/mm3 (4.8-10.8)
--- NOTE | 2025-10-19 09:32 | PC.NURSE ---
tried to obtain BP, unsuccessful at this time.
--- NOTE | 2025-10-19 09:32 | PC.NURSE ---
Tried manual BP twice and was unsuccessful; RN notified.
--- NOTE | 2025-10-19 09:38 | CT_ITS ---
FINAL REPORT TECHNIQUE: The patient was injected with IV contrast. Axial images were obtained through the chest in a PE protocol. 3-D reconstruction images were also performed. Individualized dose reduction techniques using automated exposure control or adjustment of the MA and/or KV according to patient's size were employed. CLINICAL HISTORY: Differential BP RUE>>LUE weakness COMPARISON: None FINDINGS: Mediastinal vasculature is adequately opacified. No focal stenoses are noted in the brachiocephalic vein. No pulmonary artery filling defects are identified to suggest PE. There is no aortic dissection. There is no axillary adenopathy. There is no hilar or mediastinal adenopathy. There is questionable debris in the lumen of a distended esophagus, or fluid and air outside the esophagus. There is a density eccentric to the right of the esophagus at the level of the gastroesophageal junction, which measures 6.5 x 5.5 cm in size, best seen on image #47 of series 1003. This may represent mass or hematoma. The heart size is normal. There is no pericardial or pleural effusion. Scarring is present in the right middle lobe and lingula. IMPRESSION: There is questionable debris in the lumen of a distended esophagus, or fluid and air outside the esophagus. There is density eccentric to the right of the esophagus at the level of the gastroesophageal junction, which may represent mass or possibly hematoma. No evidence of aortic dissection is identified. Reviewed, Interpreted and Dictated by Melvin Zamora MD Transcribed by Kayla Miller Authenticated and [facility]
[2025-10-19 09:41] LABS: Alanine Aminotransferase 119 U/L (12-78); Albumin Level 3.0 g/dl (3.5-5.0); Albumin/Globulin Ratio 0.8 (1.1-1.8); Alkaline Phosphatase 145 U/L (38-126); Anion Gap 16.6 mEq/L (5-15); Aspartate Amino Transferase 236 U/L (14-36); Bilirubin,Total 4.9 mg/dl (0.2-1.3); Blood Urea Nitrogen 38 mg/dl (7-17); Calcium 9.6 mg/dl (8.4-10.2); Carbon Dioxide 19 mmol/L (22.0-30.0); Chloride 105 mmol/L (98-107); Creatinine Clearance Estimated 30 mL/min (50-200); Creatinine,Serum 1.70 mg/dl (0.52-1.04); Estimated Glomerular Filt Rate 30 ml/min (>60); GFR (African American) 36 ML/MIN (>60); Globulin 3.9 g/dL (1.3-3.2); Glucose 97 mg/dl (74-100); Magnesium 1.5 mg/dl (1.6-2.3); Potassium 4.6 mmoL/L (3.5-5.1); Sodium 136 mmol/L (136-145); Total Protein,Serum 6.9 g/dl (6.3-8.2)
--- NOTE | 2025-10-19 09:53 | PC.NURSE ---
multiple staff members have attempted manual BPS on patinet and are unsuccessful. automatic reading in left arm first time reads 97/49. provider notifed.
--- NOTE | 2025-10-19 09:59 | PC.NURSE ---
pt to CT
[2025-10-19 10:03] LABS: Troponin I 3.80 ng/ml (0.00-0.034)
--- NOTE | 2025-10-19 10:04 | CT_ITS ---
FINAL REPORT TECHNIQUE: Thin section axial images were obtained through the abdomen and pelvis after contrast injection per CT angiogram protocol. Multiplanar reconstruction images were obtained from the axial data. This exam was performed with techniques to keep radiation dose as low as reasonably achievable. This includes automated exposure control, adjustment of the MA and KVP, and iterative reconstruction technique. CLINICAL HISTORY: weakness/abd swelling/differential BP COMPARISON: None FINDINGS: CTA: No abdominal aortic aneurysm or aortic dissection. The celiac axis, superior mesenteric artery, and inferior mesenteric artery are patent without stenosis. The renal arteries are patent. The common iliac arteries and visualized portions of the internal and external iliac arteries are patent. No significant stenosis. NONVASCULAR: Splenomegaly is present measuring 15 cm in the craniocaudal dimension. The liver is nodular, that may be secondary to underlying cirrhosis. The portal vein is enlarged, measuring up to 2.9 cm in diameter best seen on image #79, which may be secondary to underlying portal hypertension. The gallbladder is very distended, with surrounding stranding. No definite stones are seen. The pancreas and adrenal glands are unremarkable. There is a 5 mm nonobstructing right renal stone. There is a large midline hernia in the anterior wall of the abdomen which contains a large amount of both large and small bowel. Trace fluid is present in the pelvis. There are pars defects bilaterally at the L5-S1 level with bilateral neural foraminal narrowing. IMPRESSION: No evidence of abdominal aortic aneurysm or dissection. Liver nodularity, splenomegaly, and enlarged portal vein worrisome for underlying portal hypertension. The gallbladder is very distended with associated stranding. 5 mm nonobstructing right renal stone. Large midline ventral hernia measuring 4 cm in diameter that contains multiple loops of large and small bowel. Reviewed, Interpreted and Dictated by Melvin Zamora MD Transcribed by Kayla Miller Authenticated and [facility]
[2025-10-19] MEDS: SODIUM CHLORIDE 0.9% 10ML SYR (RAD ONLY) 10 ML IV (10:20)
[2025-10-19] MEDS: IOPAMIDOL-370 (76%);100ML BOTTLE 100 ML IV (10:20)
--- NOTE | 2025-10-19 10:20 | PC.NURSE ---
Dennis GONZALES done, given to AUGUSTIN RANGEL
--- NOTE | 2025-10-19 10:26 | PC.NURSE ---
asked patient if she could go to the bathroom to provide a UA and she reports, i didnt take my fluid pill this morning so I can't. MIYA Mata notified.
[2025-10-19 10:27] LABS: VBG HCO3 19.2 mmol/L (23-30); VBG PCO2 42.3 mmol/L (35-51); VBG PH 7.28 mmol/L (7.31-7.41); VBG PO2 43.6 mmol/L (28-40)
[2025-10-19 10:30] LABS: Lactate Venous 5.3 mmol/L (0.4-2.0)
[2025-10-19 11:40] LABS: NT Pro Brain Natriuretic Pep. 9760 pg/mL (0-125)
--- NOTE | 2025-10-19 11:51 | PC.NURSE ---
attempted to cath patinet in/out unsuccessful x2
[2025-10-19 12:06] LABS: Microscopic, Urine URINE MICROSCOPIC (MICROSCOPIC)
[2025-10-19 12:11] LABS: Glucose,Urine (UA) Negative (Negative); Ketones,Urine Negative (Negative); Leukocyte Esterase,Urine Negative (Negative); PH,Urine 5.5 (5.0-8.5); Protein,Urine 2+ (Negative); Specific Gravity, Urine 1.015 (1.005-1.030); Urobilinogen,Urine 1.0 EU/dl (0.2)
[2025-10-19 12:32] LABS: Bilirubin,Urine Negative (Negative); Color,Urine Dark Yellow (Yellow)
[2025-10-19 12:33] LABS: Bacteria,Urine Trace /lpf
[2025-10-19 12:57] LABS: Troponin I 2.94 ng/ml (0.00-0.034)
--- NOTE | 2025-10-19 12:59 | PC.NURSE ---
Dr. billings at BS for update on POC; family at BS
[2025-10-19 13:01] LABS: Lipase 59 U/L (23-300)
[2025-10-19 13:52] LABS: Hepatitis C Ab Qual. W/ RFX NEGATIVE (Negative)
[2025-10-19 14:29] LABS: Reflex Lactic Add Lactic Reflex
[2025-10-19 14:47] LABS: Bilirubin,Direct 1.1 mg/dl (0.0-0.4)
== END 2025-10-19 13:22 | disposition left against medical advice (07) ==
PROVIDERS: Emergency Provider Emergency Medicine; PCP Family Medicine
DX: I21.4 Non-ST elevation (NSTEMI) myocardial infarction (principal); R74.02 Elevation of levels of lactic acid dehydrogenase [LDH]; K82.9 Disease of gallbladder, unspecified; K22.89 Other specified disease of esophagus; R29.6 Repeated falls; R53.1 Weakness; K72.90 Hepatic failure, unspecified without coma; K43.9 Ventral hernia without obstruction or gangrene; K75.4 Autoimmune hepatitis; I10 Essential (primary) hypertension; E78.5 Hyperlipidemia, unspecified
CPT/HCPCS: 70450; 71275; 74174; 80053; 81001; 82248; 82803; 83690; 83735; 83880; 84484; 85025; 86803; 87389; 93005; 99285; 99291; Q9967

== ENCOUNTER 2025-10-22 12:18 | Emergency (ER) | payer MEDICARE, SELFPAY ==
[2025-10-22] VITALS (22 sets, daily range): BP systolic 97–140; BP diastolic 42–90; PULSE 61–75; RESP 14–21; TEMP 36.6; O2SAT 94–99; BMI 30.2
--- NOTE | 2025-10-22 12:23 | ECG_ITS ---
APPROVED REPORT Exam: Resting ECG HR:75 bpm ECG Measurements Heart Rate 75 AXES IN 147 P 67 QRSd 103 QRS 62 QT 339 T 51 QTc 368 Conclusion SINUS RHYTHM POSSIBLE RIGHT ATRIAL ENLARGEMENT [0.25mV P-WAVE] POSSIBLE LEFT ATRIAL ENLARGEMENT [-0.1mV P-WAVE IN V1/V2] INCOMPLETE RIGHT BUNDLE BRANCH BLOCK [90+ ms QRS DURATION, TERMINAL R IN V1/V2, 40+ ms S IN I/aVL/V4/V5/V6] SEPTAL MYOCARDIAL INFARCTION , OF INDETERMINATE AGE [40+ ms Q WAVE IN V1/V2] ABNORMAL ECG UNCONFIRMED REPORT Electronically signed by : Osiel Bernal, 10/22/2025 15:55:43
--- OUTSIDE RECORDS SUMMARY | 2025-10-22 12:32 | XMS_ITS | Clinical Summary ---
Author Organization [facility] Address [address] [place] [address] Care Team Providers Care Cardiac Monitor Name Role Phone Deni Sheppard MD Primary Care Provider Sophia vailable Allergies Active Allergy Reactions Criticality Noted Date Comments Cefdinir Rash Low 09/01/2024 Ibuprofen Other - please docum ent in the comment field Low 09/01/2024 Liver issues Naproxen Other - please docum ent in the comment field Low 09/01/2024 Liver issues Penicillins Hives Medium 09/01/2024 Prednisone Shortness of breath High 09/01/2024 Sulfa Drugs Anaphylaxis High 09/01/2024 Trimethoprim Shortness of breath High 09/01/2024 Family History Medical History Relation Name Comments Colon cancer Sister FH: colon cance r Relation Name Status Comments Sister Social History Tobacco Use Types Packs/Day Years Used Date Smoking Tobacco: Never Assessed Comments Unknown Sex and Gender Information Value Date Recorded Sex Assigned at Not on file Legal Sex Female 6:33 PM EDT Gender Identity Not on file Sexual Orientation Not on file Last Filed Vital Signs Vital Sign Reading Time Taken Comments Blood Pressure 128/60 09/02/2024 10:16 AM EDT Pulse 63 09/02/2024 10:16 AM EDT Temperature 37.1 C (98.7 F) 09/02/2024 10:16 AM EDT Respiratory Rate 23 09/02/2024 10:16 AM EDT Oxygen Saturation 98% 09/02/2024 10:16 AM EDT Inhaled Oxygen Concentration - - Weight 71 kg (156 lb 8.4 oz) 09/01/2024 8:09 PM EDT Height - - Body Mass Index - - Plan of Treatment Not on file Insurance [employer] Advance Directives * Full Code (Latest Code Status on File) Date Activated Date Inactivated Comments 09/02/2024 3:08 AM 09/02/2024 12:21 PM Question Answer Comments Patient has decision-making capacity? Yes Care Teams Cardiac Monitor Relationship Specialty Start Date End Date Deni Sheppard MD PCP - General Family Medicine 09/02/24
--- NOTE | 2025-10-22 12:33 | PC.NURSE ---
patients bilateral feet cold to the touch. doppler performed on each extremity with +1 pulses noted on dorsalis pedis and posterior tibealis sites x2. Provider Danika Delcid APRN at bedside when doppler performed.
[2025-10-22 12:42] LABS: Coronavirus 19, PCR Not Detected (NotDetected); Influenza A, PCR Not Detected (NotDetected); Influenza B, PCR Not Detected (NotDetected)
--- NOTE | 2025-10-22 12:42 | PC.NURSE ---
RESPIRATORY NOTIFIED TO CALL IN STAFF FOR DOPPLER
[2025-10-22 12:45] LABS: Hematocrit 40.3 % (37.0-47.0); Hemoglobin 13.6 g/dL (12.2-16.2); Immature Granulocytes % 6.8 %; Mean Corpuscular HGB Conc 33.7 g/dL (31.8-35.4); Mean Corpuscular Hemoglobin 28.1 pg (27.0-31.2); Mean Corpuscular Volume 83.3 fl (81-99); Nucleated Red Blood Cells % 0.6 %; Platelet Count 81 K/mm3 (142-424); Red Blood Count 4.84 M/mm3 (4.20-5.40); Red Cell Distribution Width-SD 48.4 fL; White Blood Count 3.4 K/mm3 (4.8-10.8)
[2025-10-22 12:51] LABS: Lactate Venous 3.5 mmol/L (0.4-2.0); VBG HCO3 22.3 mmol/L (23-30); VBG PCO2 47.4 mmol/L (35-51); VBG PH 7.29 mmol/L (7.31-7.41); VBG PO2 30.1 mmol/L (28-40)
[2025-10-22 12:51] LABS: Activated Partial Thrombo Time 36.1 seconds (22.8-30.6); Alanine Aminotransferase 99 U/L (12-78); Albumin Level 3.1 g/dl (3.5-5.0); Albumin/Globulin Ratio 0.8 (1.1-1.8); Alkaline Phosphatase 124 U/L (38-126); Anion Gap 17.7 mEq/L (5-15); Aspartate Amino Transferase 122 U/L (14-36); Bilirubin,Total 4.4 mg/dl (0.2-1.3); Blood Urea Nitrogen 68 mg/dl (7-17); Calcium 10.1 mg/dl (8.4-10.2); Carbon Dioxide 23 mmol/L (22.0-30.0); Chloride 100 mmol/L (98-107); Creatinine Clearance Estimated 28 mL/min (50-200); Creatinine,Serum 2.00 mg/dl (0.52-1.04); Estimated Glomerular Filt Rate 25 ml/min (>60); GFR (African American) 30 ML/MIN (>60); Globulin 4.1 g/dL (1.3-3.2); Glucose 155 mg/dl (74-100); INR 1.55 (0.9-1.1); Lipase 78 U/L (23-300); Magnesium 1.9 mg/dl (1.6-2.3); Potassium 5.7 mmoL/L (3.5-5.1); Prothrombin Time 16.7 seconds (10.1-12.5); Sodium 135 mmol/L (136-145); Total Protein,Serum 7.2 g/dl (6.3-8.2)
--- NOTE | 2025-10-22 12:56 | CT_ITS ---
PROCEDURE INFORMATION: Exam: CTA Abdominal Aorta and Bilateral Lower Extremities (Run-off) With Contrast Exam date and time: 10/22/2025 2:21 PM Age: 70 years old Clinical indication: Other: Extremities cold; Additional info: Run off to the feet TECHNIQUE: Imaging protocol: Computed tomographic angiography of the of the abdominal aorta, pelvis and bilateral lower extremities with contrast. 3D rendering (Not supervised by radiologist): MIP and/or 3D reconstructed images were created by the technologist. Radiation optimization: All CT scans at this facility use at least one of these dose optimization techniques: automated exposure control; mA and/or kV adjustment per patient size (includes targeted exams where dose is matched to clinical indication); or iterative reconstruction. Contrast material: ISOVUE; Contrast volume: 120 ml; Contrast route: INTRAVENOUS (IV); COMPARISON: CT ANGIO ABDOMEN PELVIS 10/19/2025 10:08 AM FINDINGS: Aorta: No aortic aneurysm. No aortic dissection. Celiac and mesenteric arteries: No occlusion or significant stenosis. Renal arteries: No occlusion or significant stenosis. Right iliac arteries: No occlusion or significant stenosis. Right femoral/popliteal arteries: No occlusion or significant stenosis. Right infrapopliteal arteries: No occlusion or significant stenosis. Left iliac arteries: No occlusion or significant stenosis. Left femoral/popliteal arteries: No occlusion or significant stenosis. Left infrapopliteal arteries: No occlusion or significant stenosis. Veins: There is mixing artifact in the superior portal vein. Portosystemic collaterals noted Liver: Nodular liver contours noted. Gallbladder and biliary ducts: Gallbladder is hydropic. No radiopaque cholelithiasis. Pancreas: Unremarkable. No mass. No ductal dilation. Spleen: Splenomegaly to 15 cm. Adrenal glands: Normal. No mass. Kidneys and ureters: Excreted contrast material in the collecting system obscures for nephrolithiasis. Nephrograms are symmetric. There is no hydronephrosis on either side. Stomach and bowel: No bowel wall thickening or distention. Appendix: No evidence of appendicitis. Urinary bladder: Urinary bladder is unremarkable. Reproductive: Unremarkable as visualized. e Intraperitoneal space: There is a small amount of free intraperitoneal fluid present. Lymph nodes: No lymphadenopathy. Bones/joints: No acute fracture. No dislocation. Soft tissues: Portosystemic collaterals noted neck large ventral hernia containing omental fat and segments of nonobstructed small bowel loops. Diffuse anasarca of the soft tissues. Other findings: For findings in the chest, please refer to the separately dictated chest CT report under a separate accession number. IMPRESSION: 1. Cirrhosis and portal hypertension, as evidenced by portosystemic collaterals, splenomegaly, ascites, and anasarca 2. Three-vessel bilateral lower extremity runoffs
--- NOTE | 2025-10-22 12:56 | CT_ITS ---
PROCEDURE INFORMATION: Exam: CTA Head With Contrast, Arteriography Exam date and time: 10/22/2025 2:15 PM Age: 70 years old Clinical indication: Other: AMS; Additional info: Altered TECHNIQUE: Imaging protocol: Computed tomographic angiography of the head with contrast. Exam focused on the arteries. 3D rendering (Not supervised by radiologist): MIP and/or 3D reconstructed images were created by the technologist. Radiation optimization: All CT scans at this facility use at least one of these dose optimization techniques: automated exposure control; mA and/or kV adjustment per patient size (includes targeted exams where dose is matched to clinical indication); or iterative reconstruction. Contrast material: ISOVUE; Contrast volume: 80 ml; Contrast route: INTRAVENOUS (IV); COMPARISON: CT HEAD/BRAIN WO CON 10/22/2025 2:13 PM FINDINGS: ANTERIOR CIRCULATION: Right internal carotid artery: Intracranial segment is patent with no significant stenosis. No aneurysm. Right middle cerebral artery: No occlusion or significant stenosis. No aneurysm. Right anterior cerebral artery: No occlusion or significant stenosis. No aneurysm. Left internal carotid artery: Intracranial segment is patent with no significant stenosis. No aneurysm. Left middle cerebral artery: No occlusion or significant stenosis. No aneurysm. Left anterior cerebral artery: No occlusion or significant stenosis. No aneurysm. POSTERIOR CIRCULATION: Right vertebral artery: No occlusion or significant stenosis. No aneurysm. Left vertebral artery: No occlusion or significant stenosis. No aneurysm. Basilar artery: No occlusion or significant stenosis. No aneurysm. Right posterior cerebral artery: No occlusion or significant stenosis. No aneurysm. Left posterior cerebral artery: No occlusion or significant stenosis. No aneurysm. Brain: No definite mass, mass effect, or midline shift. Cerebral ventricles: No ventriculomegaly. Bones/joints: Unremarkable. No acute fracture. Soft tissues: Unremarkable. IMPRESSION: No large vessel stenosis or occlusion.
--- NOTE | 2025-10-22 12:56 | CT_ITS ---
PROCEDURE INFORMATION: Exam: CTA Chest With Contrast Exam date and time: 10/22/2025 2:21 PM Age: 70 years old Clinical indication: Other: AMS; Additional info: Altered TECHNIQUE: Imaging protocol: Computed tomographic angiography of the chest with contrast. Exam focused on the arteries. 3D rendering (Not supervised by radiologist): MIP and/or 3D reconstructed images were created by the technologist. Radiation optimization: All CT scans at this facility use at least one of these dose optimization techniques: automated exposure control; mA and/or kV adjustment per patient size (includes targeted exams where dose is matched to clinical indication); or iterative reconstruction. Contrast material: ISOVUE; Contrast volume: 120 ml; Contrast route: INTRAVENOUS (IV); COMPARISON: CT ANGIO CHEST 10/19/2025 10:08 AM FINDINGS: Limitations: Motion artifact does moderately limit the sensitivity of this examination. The field of view suboptimal. The images are pixilated decreasing the sensitivity of the study and potentially obscuring subtle findings. Pulmonary arteries: No evidence of proximal pulmonary emboli. The main pulmonary trunk is prominent, which can be seen in the context of pulmonary hypertension. Aorta: Unremarkable. No aortic aneurysm. No aortic dissection. Trachea: Main airways are patent. Lungs: No evidence of consolidation or interlobular septal thickening. Pleural spaces: Unremarkable. No pneumothorax. No pleural effusion. Heart: Unremarkable. No cardiomegaly. No pericardial effusion. Heart RV/LV ratio: The RV/LV ratio is less than 1. Esophagus: There is circumferential thickening of the 2/3 of the distal esophagus. 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 Lymph nodes: Unremarkable. No enlarged lymph nodes. Bones/joints: Unremarkable. No acute fracture. Soft tissues: Unremarkable. IMPRESSION: 1. There is circumferential thickening of the 2/3 of the distal esophagus. 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 2. No evidence of proximal pulmonary emboli.
--- NOTE | 2025-10-22 12:56 | CT_ITS ---
PROCEDURE INFORMATION: Exam: CTA Neck With Contrast Exam date and time: 10/22/2025 2:15 PM Age: 70 years old Clinical indication: Other: AMS; Additional info: Altered TECHNIQUE: Imaging protocol: Computed tomographic angiography of the neck with contrast. Exam focused on the cervical segments of the vasculature. 3D rendering (Not supervised by radiologist): MIP and/or 3D reconstructed images were created by the technologist. Radiation optimization: All CT scans at this facility use at least one of these dose optimization techniques: automated exposure control; mA and/or kV adjustment per patient size (includes targeted exams where dose is matched to clinical indication); or iterative reconstruction. Contrast material: ISOVUE; Contrast volume: 80 ml; Contrast route: INTRAVENOUS (IV); COMPARISON: CT ANGIO NECK 10/22/2025 2:15 PM FINDINGS: Right common carotid artery: No stenosis. No dissection or occlusion. Right internal carotid artery: There is a subtle outpouching in the proximal right internal carotid artery (4/235) Right external carotid artery: No occlusion or stenosis of the origin. Left common carotid artery: No stenosis. No dissection or occlusion. Left internal carotid artery: Multifocal irregularities along the cervical segements of left internal carotid artery. Left external carotid artery: No occlusion or stenosis of the origin. Right vertebral artery: Multifocal irregularities along the cervical segements of right vertebral artery. Left vertebral artery: Multifocal irregularities along the cervical segements of left vertebral artery. Soft tissues: Normal. No significant soft tissue swelling. Bones/joints: No acute fracture. Other findings: For findings in the chest, please refer to the separately dictated chest CT report under a separate accession number. IMPRESSION: Multifocal irregularities cervical arteries above. Considerations include fibromuscular dysplasia versus less likely non flow-limiting dissection, particularly in the context of trauma REFERENCES: NASCET CRITERIA. The degree of stenosis in the cervical segment of the internal carotid artery is based on NASCET criteria. Normal is no stenosis. Mild is less than 50% stenosis. Moderate is 50-69% stenosis. Severe is 70% to 99% stenosis. Total occlusion is no detectable patent lumen.
[2025-10-22 13:05] LABS: Troponin I 0.48 ng/ml (0.00-0.034)
--- NOTE | 2025-10-22 13:07 | HMH.EDGENADL ---
Discharge Plan Disposition Patient Disposition: Xfer Other Condition: Serious Prescriptions Prescriptions: No Action calcium citrate-vitamin D3 [Citracal + D Maximum] 315-250 mg-unit tablet 1 tab PO DAILY loratadine 10 mg capsule 10 mg PO DAILY ferrous sulfate 325 mg (65 mg iron) tablet 325 mg PO BID Bengay Ultra Strength 4-30-10 % cream 1 applic topical BID PRN (Reason: muscle pain) Qty: 113 1RF ofloxacin 0.3 % drops 10 drp Ear-Both DAILY 7 Days Qty: 10 0RF triamterene-hydrochlorothiazid 75-50 mg tablet See Rx Instructions .ROUTE .COMPLEX Qty: 90 1RF Dose Instruction: TAKE 1 TABLET BY MOUTH DAILY FOR FLUID Rx Instructions: TAKE 1 TABLET BY MOUTH DAILY FOR FLUID potassium chloride 10 mEq tablet extended release See Rx Instructions .ROUTE .COMPLEX Qty: 90 3RF Dose Instruction: TAKE 1 TABLET BY MOUTH THREE TIMES DAILY FOR SUPPLEMENT Rx Instructions: TAKE 1 TABLET BY MOUTH THREE TIMES DAILY FOR SUPPLEMENT doxepin 10 mg capsule See Rx Instructions .ROUTE .COMPLEX Qty: 30 2RF Dose Instruction: TAKE 1 CAPSULE BY MOUTH AT BEDTIME FOR SLEEP Rx Instructions: TAKE 1 CAPSULE BY MOUTH AT BEDTIME FOR SLEEP nadolol 40 mg tablet See Rx Instructions .ROUTE .COMPLEX Qty: 30 2RF Dose Instruction: TAKE 1 TABLET BY MOUTH DAILY Rx Instructions: TAKE 1 TABLET BY MOUTH DAILY ursodiol 500 mg tablet See Rx Instructions .ROUTE .COMPLEX Qty: 60 1RF Dose Instruction: TAKE 1 TABLET BY MOUTH TWICE A DAY FOR GALLSTONES FOR 30 DAYS Rx Instructions: TAKE 1 TABLET BY MOUTH TWICE A DAY FOR GALLSTONES FOR 30 DAYS Referrals Follow up/Referrals: Deni Sheppard MD [Primary Care Provider, Internal Medicine] - See instructions Clinical Impressions Clinical Impression: Esophageal varices, Splenomegaly, Leukopenia, Thrombocytopenia, Decompensated cirrhosis, Acidosis, lactic, Portal hypertension, Acute kidney injury Print Language Print Language: Albanian Discharge ED Provider: Danika Bernal General Adult HPI General Chief complaint: PAIN Stated complaint: confused Time Seen by Provider: 10/22/25 12:28 Mode of Arrival: Wheelchair Source of Information: Patient Description of Symptoms (Recalled from ER Triage Doc. by RN): patient here for bilateral foot pain. paitent seems to be altered mentally. patient only able to tell us that both feel hurt . both lower extremities extremely cold to the touch. the paitent is only oriented to self, stated the year was 2004 . she was seen in the ED friday and the patient desired d/c with multiple life threatening issues according to the d/c paperwork at the bedside. doppler was performed on both lower extremities with oulses noted via doppler. History of Present Illness HPI narrative: 70-year-old female presents to the emergency department accompanied by her brother and sister for altered mental status that has been ongoing/worsening for the last 3 days, patient was recently seen in the emergency department on 10/19/2025, found to be critically ill with an NSTEMI, total bilirubin elevation, with distended gallbladder, and a very large ventral hernia, containing 4 loops of bowel, as well as ELAINA outside of her baseline, was offered admission but declined and signed out AMA, once again presents today GCS 13-14 of, which is worsened over the last several days according to patient's family at the bedside, generalized weakness frequent falls, with now bilateral lower extremity swelling right worse than left as well as erythema and pain to the right lower extremity most noted to the medial malleolus, patient review of systems is negative she denies any other acute symptomatology except for right lower extremity pain and weakness, patient is a non-smoker denies any alcohol or drug use other past medical history consistent with hyperlipidemia, hypertension, autoimmune hepatitis, portal hypertension, prior history of GI bleed, initial triage vitals are unremarkable. Please note that above description of symptoms, in this electronic medical record under categorization of recalled from ER triage doctor by RN are reflective of an initial nursing assessment, however, is not reflective of my full history and physical exam that was personally taken and clarified. Consequentially, this preceding description of symptoms, which may include the patient's categorized chief complaint in the EMR, do not reflect my personal clinical impression, and the ultimate description of history of present illness and patient stated complaints should be deferred to this section of the note. Unless stated otherwise or congruent with this section of the note, additional signs, symptoms, or incongruence should be interpreted as inaccurate with my clinical impression. Onset (ago): day(s) Related Data Home Medications ?Medication ?Instructions ?Recorded ?Confirmed calcium 315 mg (as 1 tab PO DAILY Supplement 01/15/18 10/03/25 citrate)-vitamin D3 6.25 mcg (250 unit) tablet (Citracal + Vitamin D Maximum) loratadine 10 mg capsule 10 mg PO DAILY Allergy symptoms 01/15/18 10/03/25 ferrous sulfate 325 mg (65 mg 325 mg PO BID Supplement 09/28/20 10/03/25 iron) tablet Previous Rx's ?Medication ?Instructions ?Recorded triamterene 75 See Rx Instructions .Route 06/08/25 mg-hydrochlorothiazide 50 mg tablet .COMPLEX #90 tabs potassium chloride 10 mEq See Rx Instructions .Route 07/13/25 tablet,extended release .COMPLEX #90 tabs camphor 4 %-methyl salicylate 30 1 applic topical BID PRN muscle 08/09/25 %-menthol 10 % topical cream pain #113 grams (Bengay Ultra Strength) doxepin 10 mg capsule See Rx Instructions .Route 08/10/25 .COMPLEX #30 caps ofloxacin 0.3 % ear drops 10 drp Ear-Both DAILY 7 days #10 mL 08/24/25 nadolol 40 mg tablet See Rx Instructions .Route 09/08/25 .COMPLEX #30 tabs ursodiol 500 mg tablet See Rx Instructions .Route 10/10/25 .COMPLEX #60 tabs Allergies Allergy/AdvReac Type Severity Reaction Status Date / Time Penicillins Allergy Severe I-HIVES Verified 10/03/25 08:37 prednisone Allergy Severe S-DIFF. Verified 10/03/25 08:37 BREATHING Sulfa (Sulfonamide Allergy Severe S-ANAPHYLAX Verified 10/03/25 08:37 Antibiotics) (SULFA IS (SULFONAMIDE ANTIBIOTICS)) sulfamethoxazole (From Allergy Severe S-DIFF. Verified 10/03/25 08:37 Bactrim) BREATHING trimethoprim (From Bactrim) Allergy Severe S-DIFF. Verified 10/03/25 08:37 BREATHING cefdinir Allergy rash Verified 10/03/25 08:37 ibuprofen Allergy liver Verified 10/03/25 08:37 issues naproxen (From Aleve) Allergy liver Verified 10/03/25 08:37 [facility] Disclaimer: The information contained in this section may have been updated after the patient was seen, as this information can be updated by other users. Medical History FH: polycystic ovary Blood loss anemia GI bleeding Cytopenia Splenomegaly Portal hypertension Cirrhosis Autoimmune hepatitis Hyperlipidemia Hypertension Hepatitis Esophageal varices with bleeding Hematemesis Surgical History H/O dilation and curettage History of carpal tunnel release History of bilateral tubal ligation Family History Mother Diabetes Hypertension Heart attack Father Coronary artery disease Sister Cancer Social History Smoking Status: Unknown if ever smoked alcohol intake: never substance use type: denies use current occupational status: unemployed and disabled Travel in the last 8 weeks?: None household members: spouse housing: apartment caffeine: Yes Have you lived/traveled outside US in past 30 days?: No Contact w/someone who lives/traveled outside US past 30 days?: No Exposure to someone with infectious disease in past 14 days?: No Do you have a fever (greater than 100.4 F or 38 C)?: No Have you tested positive for COVID-19?: No Exposed to someone with COVID-19 in past 14 days?: No Do you have a sore throat?: No Do you have a cough?: No Do you have any weakness?: No Do you have any diarrhea?: No Are you experiencing any unusual bleeding?: No Do you have any muscle aches/pain?: No Do you have any abdominal pain?: No Are you experiencing loss of taste or smell?: No Other Medical History Have you received the Flu Vaccine for this season: Yes Have you received the Pneumonia Vaccine: Yes ROS Obtained: Yes All systems reviewed & no additional complaints except as documented Physical Exam General General appearance: alert Comment: Toxic appearing female cachectic appearing female Head Head exam: atraumatic and normocephalic Eye Eye exam: Present PERRL and EOMI; Absent scleral icterus ENT ENT exam: Present mucous membranes moist Neck Neck exam: Present normal inspection Chest Chest inspection: Present normal inspection and symmetric chest wall rise Respiratory Respiratory exam: Present normal lung sounds bilaterally; Absent respiratory distress, wheezes or stridor Cardiovascular Cardiovascular exam: Present regular rate and normal rhythm Abdominal Exam Abdominal exam: Present soft and hernia; Absent tenderness, guarding, rebound or rigidity Extremities Exam Extremities exam: Present normal inspection, tenderness, edema and other (Bilateral 3+ pitting edema, erythema noted to the medial malleolus on the right, patient has pain limited range of motion/difficulty with range of motion, cold to touch extremities, Doppler pulses thready pulses noted dorsalis pedis and Doppler pulse); Absent full ROM Neurological Exam Neurological exam: Present alert and other (Follows commands GCS of 13/14 inappropriate words confusion oriented to person disorientated place and time generalized global weakness no); Absent oriented X3 Psychiatric Psychiatric exam: Present normal affect Skin Skin exam: Present warm, dry and other (Bilateral lower extremity edema +3 at the lower extremities, bilateral mostly's to both flanks, somewhat jaundiced appearing.) Medical Decision Making Medical Records Medical records reviewed: Yes I reviewed the patient's medical records. Screening: Per USPSTF and CDC recommendations, given the prevalence of disease in our region, it is our hospital?s policy to screen for HIV and viral Hepatitis for all patients aged 18 and over and those with ongoing risk factors. Yogesh Inquiry Pt receiving controlled substance: No Yogesh was queried for this patient: No Vital Signs: 10/22/25 12:25 10/22/25 12:31 10/22/25 13:00 Temperature 97.9 F Temperature Source Oral Pulse Rate 70 66 Pulse Rate [Right Radial] 75 Respiratory Rate 18 17 19 Blood Pressure 115/75 100/50 L Blood Pressure [Right Arm] 125/90 Blood Pressure Mean Blood Pressure Mean [Right Arm] 101 Blood Pressure Source [Right Arm] Automatic Cuff Blood Pressure Position [Right Arm] Sitting 02 Sat by Pulse Oximetry 97 96 97 Oxygen Delivery Method Room Air 10/22/25 13:31 10/22/25 14:01 10/22/25 15:00 Temperature Temperature Source Pulse Rate 74 73 67 Pulse Rate [Right Radial] Respiratory Rate 14 20 20 Blood Pressure 126/63 109/54 L 98/56 L Blood Pressure [Right Arm] Blood Pressure Mean 72 62 Blood Pressure Mean [Right Arm] Blood Pressure Source [Right Arm] Blood Pressure Position [Right Arm] 02 Sat by Pulse Oximetry 96 95 98 Oxygen Delivery Method 10/22/25 15:38 10/22/25 16:00 Temperature Temperature Source Pulse Rate 62 62 Pulse Rate [Right Radial] Respiratory Rate 18 18 Blood Pressure 115/60 109/47 L Blood Pressure [Right Arm] Blood Pressure Mean 68 61 Blood Pressure Mean [Right Arm] Blood Pressure Source [Right Arm] Blood Pressure Position [Right Arm] 02 Sat by Pulse Oximetry 98 Oxygen Delivery Method Lab Data Lab results reviewed: Yes I reviewed the patient's lab results. Lab Results 10/22/25 11:25: ESR 51 H, Total Creatine Kinase 267 H, C-Reactive Protein 254.9 H, NT-Pro-B Natriuret Pep 9240 H 10/22/25 12:25: WBC 3.4 L, RBC 4.84, Hgb 13.6, Hct 40.3, MCV 83.3, MCH 28.1, MCHC 33.7, RDW 16.0, Plt Count 81 L, MPV 10.1, Neut % (Auto) 77.6, Lymph % (Auto) 9.4 L, Brewster % (Auto) 4.4, Eos % (Auto) 0.0 L, Baso % (Auto) 1.8, Neut # (Auto) 2.6, Lymph # (Auto) 0.3 L, Brewster # (Auto) 0.2, Eos # (Auto) 0.0, Baso # (Auto) 0.1, Total Counted 100, Neutrophils % (Manual) 83 H, Lymphocytes % (Manual) 13, Monocytes % (Manual) 4, Platelet Estimate Normal, RBC Morphology Normal, PT 16.7 H, INR 1.55 H, APTT 36.1 H, Fibrinogen 345, D-Dimer 7.83 H, Sodium 135 L, Potassium 5.7 H, Chloride 100, Carbon Dioxide 23, Anion Gap 17.7 H, BUN 68 H, Creatinine 2.00 H, Estimated Creat Clear 28, Estimated GFR 25 L, Est GFR ( Amer) 30 L, Glucose 155 H, Calcium 10.1, Magnesium 1.9, Total Bilirubin 4.4 H, AST 122 H, ALT 99 H, Alkaline Phosphatase 124, Troponin I 0.48 H, Total Protein 7.2, Albumin 3.1 L, Globulin 4.1 H, Albumin/Globulin Ratio 0.8 L, Lipase 78 10/22/25 12:37: VBG pH 7.29 L, VBG pCO2 47.4, VBG pO2 30.1, VBG HCO3 22.3 L, VBG Total CO2 23.7, VBG O2 Saturation 49.8 L, VBG Base Excess -4.3 L, VBG Lactic Acid 3.5 H 10/22/25 12:40: SARS-CoV-2 (PCR) Not detected, Influenza A Untype (PCR) Not detected, Influenza Type B (PCR) Not detected 10/22/25 13:30: Urine Color Yellow, Urine Appearance Clear, Urine pH 6.0, Ur Specific [place] 1.015, Urine Protein Trace, Urine Glucose (UA) Negative, Urine Ketones Negative, Urine Blood 2+ A, Urine Nitrate Negative, Urine Bilirubin Negative, Urine Urobilinogen 1.0, Ur Leukocyte Esterase Negative, Urine RBC 5-10, Urine WBC Occasional, Ur Squamous Epith Cells Occasional, Urine Bacteria Trace 10/22/25 15:20: Lactate 2.9 H, Troponin I 0.40 H 10/22/25 17:00: Lactate 2.1, Ammonia 17 10/22/25 12:25 10/22/25 12:25 Orders (Tests/Meds): ED MEDICATIONS Generic Name Dose Route Start Last Admin Trade Name Freq PRN Reason Stop Dose Admin Miscellaneous 1 each 10/22/25 15:30 10/22/25 16:03 Vancomycin Consult Request NOTAPPLIC 11/21/25 15:29 1 each CONSULT PHARMACY [facility] Administration Sodium Chloride 3 ml 10/22/25 12:52 Sodium Chloride 3% 15ml Neb IH 11/21/25 12:51 ONCE PRN INDUCE SPUTUM COLLECTION Sodium Chloride 10 ml 10/22/25 14:42 10/22/25 14:43 Sodium Chloride 0.9% 10ml Syr (Rad Only) IV 11/21/25 14:41 10 ml NEEDED PRN Administration Maintain IV Site Discontinued Medications Generic Name Dose Route Start Last Admin Trade Name Freq PRN Reason Stop Dose Admin Vancomycin/PEG/NADA/Lysine/Water 1.25 gm in 250 mls @ 125 mls/hr 10/22/25 15:30 10/22/25 16:02 Vancomycin 1.25gm/250ml (Peg) Premix IV 10/22/25 17:29 125 mls/hr ONCE ONE Administration Iopamidol 200 ml 10/22/25 14:42 10/22/25 14:43 Iopamidol-370 (76%);100ml Bottle IV 10/22/25 14:43 200 ml ONCE ONE Administration Sodium Chloride 100 ml 10/22/25 14:42 10/22/25 14:43 0.9 % Sodium Chloride 50 Ml Vial IV 10/22/25 14:43 100 ml ONCE ONE Administration ORDERS Category Date Time Status CT angio abdomen/femoral Stat Cat Scan 10/22/25 12:[address] angio chest - dissection Stat Cat Scan 10/22/25 12:[address] angio head Stat Cat Scan 10/22/25 12:[address] angio neck Stat Cat Scan 10/22/25 12:[address] head/brain wo con Stat Cat Scan 10/22/25 13:51 Completed Ammonia Stat Lab 10/22/25 17:00 Completed BNP [NT Pro Brain Natriuretic Pep.] Stat Lab 10/22/25 11:25 Completed C-Reactive Protein Stat Lab 10/22/25 11:25 Completed CBC [Complete Blood Count Auto Diff] Stat Lab 10/22/25 12:25 Completed Comprehensive Metabolic Panel Stat Lab 10/22/25 12:25 Completed Creatine Kinase Stat Lab 10/22/25 11:25 Completed D-Dimer Stat Lab 10/22/25 12:25 Completed Erythrocyte Sedimentation Rate Stat Lab 10/22/25 11:25 Completed Fibrinogen Stat Lab 10/22/25 12:25 Completed Lactic Acid Follow Up (RFLX 1) Stat Lab 10/22/25 17:00 Completed Lactic Acid Stat Lab 10/22/25 15:20 Completed Lipase Stat Lab 10/22/25 12:25 Completed Magnesium Stat Lab 10/22/25 12:25 Completed PT INR [Prothrombin Time INR] Stat Lab 10/22/25 12:25 Completed PTT [Activated Partial Thrombo Time] Stat Lab 10/22/25 12:25 Completed Peripheral Smear Review Stat Lab 10/22/25 12:25 Received Rapid PCR Covid and Flu A/B Stat Lab 10/22/25 12:40 Completed Trop I [Troponin I] Stat Lab 10/22/25 12:25 Completed Troponin I Q3H Lab 10/22/25 15:20 Completed Troponin I Q3H Lab 10/22/25 18:45 Ordered Urinalysis and Microscopic Stat Lab 10/22/25 13:30 Completed Blood Culture Stat Micro 10/22/25 15:20 Received Sputum Culture & Gram Stain Stat Micro 10/22/25 12:52 Ordered Urine Culture Stat Micro 10/22/25 13:34 Received VBG [Venous Blood Gas] Stat RT 10/22/25 12:37 Completed CA venous doppler LE BI Stat Y 10/22/25 13:16 Completed Medical Decision Narrative: 70-year-old female presents to the emergency department with multiple complaints see HPI for detailed past medical history differential diagnose include but not limited to, sepsis, DVT, PE, limb ischemia, cellulitis, anasarca, CHF laceration, ACS, cardiac arrhythmia, electrolyte disturbance, hypovolemia, coagulopathy, pneumonia, pleural effusion, pulmonary edema, cholecystitis, cholelithiasis, choledocholithiasis, bowel obstruction, acute UTI, acute pyelonephritis, encephalopathy, metabolic cephalopathy, uremic cephalopathy, among others. I discussed this patient's case with the attending physician Dr. Bernal he saw and examined the patient as well. Will obtain basic laboratory studies, EKG, bilateral duplex ultrasounds, will obtain angiographic studies of the patient's head neck chest abdomen pelvis and bilateral lower extremities with runoff, will obtain VBG, acid level, proBNP, ESR sed rate, CK level, PCR COVID and flu, urinalysis, troponin, will add coagulation studies to include fibrinogen, PT/INR PTT. Neutropenia 3.4, thrombocytopenia 81, which improved from previous, Elevated coagulation studies with a PTT of 16.7, INR of 1.5, PTT at 36.1, concern for DIC thus we will add on D-dimer and fibrinogen level as well as peripheral smear. Acidotic pH of 7.29, decreased bicarb 22.3, venous lactic acid was elevated 3.5 CMP is notable for hyperkalemia 5.7, anion gap of 17.7, BUN is elevated 68, creatinine is 2, total bilirubin of 4.4, AST is elevated at 122 and ALT is elevated 99, troponin 0.48, total CK levels elevated at 267, CRP is elevated 254.9 proBNP is significant elevated at 9240 ESR is elevated at 51. Fibrinogen is 345 COVID and flu are negative via PCR D-dimer significantly elevated at 7.83 UA is notable for 2+ hematuria, negative leukocyte esterase, 5-10 RBCs, occasional WBCs, occasional squames with a trace bacteria. I reviewed the patient's CT head without contrast on the corresponding radiologic report, no acute intracranial hemorrhage. Will start vancomycin IV pharmacy to dose, patient meeting sepsis criteria, did not meet sepsis criteria upon arrival, with elevated inflammatory markers, concern for source of infection being right lower extremity cellulitis, will hold off on IV fluids due to concern for anasarca/fluid overload with 3+ lower extremity pitting edema, concern for underlying heart failure with elevated proBNP,/volume status. Will only do single coverage vancomycin due to patient history of penicillin and cephalosporin allergies. I reviewed the patient's CTA head with and without contrast on the corresponding radiologic report, no large vessel stenosis or occlusion. Reviewed the patient's CTA neck with and without contrast on the corresponding radiologic report, there is multifocal irregularities cervical arteries as above considerations include fibromuscular dysplasia versus less likely nonflow limiting dissection particularly in the context of trauma. Repeat troponin is 0.4, lactic acidosis at 2.9. I reviewed the patient's CTA abdomen pelvis with runoff with contrast along the corresponding radiologic report, cirrhosis and portal hypertension as evidenced by portosystemic collateral splenomegaly ascites and anasarca three-vessel bilateral lower extremity runoffs. Will obtain ammonia level to rule out any hepatic encephalopathy. I reviewed the patient's CTA chest without contrast PE protocol along the corresponding radiologic report, there is surfer atrial thickening of the two thirds of distal esophagus specked a large paraesophageal varices no evidence of proximal pulmonary emboli. I attempted to call GI physician at approximately 5:15 PM no answer. I discussed this patient's case with the hospitalist physician Dr. Bhatt at approximately 5:30 PM, unfortunately this patient will require tertiary level of care/higher level of care due to complex comorbidities and concern for acute liver failure and and esophageal varices. Ammonia level normal. I had a long discussion including goals of care discussion with family at the bedside now at the bedside is patient's , and 2 sisters, patient unfortunately is still quite confused, but does consent to transfer to [facility] for higher level of care, patient's family at the bedside are in agreement. Thus we will call [facility] for transfer. I discussed this patient's case in depth with the [facility] transfer physician at approximately 40 5 PM, he is agreement with the current treatment plan/transfer plan patient be transferred to [facility] emergency department for multisystem organ failure and acute decompensated liver cirrhosis. I discussed need for transfer with the patient family bedside patient and family in agreement the current treatment plan/transfer plan. Critical Care Critical Care Time Critical Care Time: Yes Attestation: On 10/22/25, the high probability of a clinically significant, sudden or life threatening deterioration of the following system(s) required my full and direct attention, intervention and personal management. The time I documented below is in addition to time spent performing reported procedures but includes the following listed in this critical care notation. Total Time Total Critical Care Time: 60
[2025-10-22 13:13] LABS: RBC Morphology Normal; Total Cells Counted 100
--- NOTE | 2025-10-22 13:16 | CA_ITS ---
FINAL REPORT TECHNIQUE: Bilateral lower extremity venous duplex was performed with augmentation and compression. CLINICAL HISTORY: Patient with altered mental status, history obtained from family. States patient had a fall 10/17/25, with injury to left leg. Pain and edema bilateral lower extremities since 10/18/25. Legs are sensitive to touch. HTN. COMPARISON: None FINDINGS: Proper flow is seen throughout the deep venous systems bilaterally. There is no evidence of deep venous thrombosis in either lower extremity. IMPRESSION: No evidence of deep venous thrombosis in either lower extremity. Reviewed, Interpreted and Dictated by Melvin Zamora MD Transcribed by Kayla Miller Authenticated and [facility]
[2025-10-22 13:17] LABS: Creatine Kinase 267 U/L (30-135)
[2025-10-22 13:22] LABS: C-Reactive Protein 254.9 mg/L (0-4)
[2025-10-22 13:28] LABS: NT Pro Brain Natriuretic Pep. 9240 pg/mL (0-125)
[2025-10-22 13:36] LABS: Fibrinogen 345 mg/dL (229.9-363.5)
[2025-10-22 13:36] LABS: Microscopic, Urine URINE MICROSCOPIC (MICROSCOPIC)
--- NOTE | 2025-10-22 13:51 | CT_ITS ---
PROCEDURE INFORMATION: Exam: CT Head Without Contrast Exam date and time: 10/22/2025 2:13 PM Age: 70 years old Clinical indication: Altered mental status/memory loss TECHNIQUE: Imaging protocol: Computed tomography of the head without contrast. Radiation optimization: All CT scans at this facility use at least one of these dose optimization techniques: automated exposure control; mA and/or kV adjustment per patient size (includes targeted exams where dose is matched to clinical indication); or iterative reconstruction. COMPARISON: CT HEAD/BRAIN WO CON 10/19/2025 10:05 AM FINDINGS: Brain: No acute intracranial hemorrhage.. There is mild diffuse heterogeneity of the white matter attenuation, consistent with chronic white matter ischemic changes. Mild cerebral atrophy Cerebral ventricles: No ventriculomegaly. Paranasal sinuses: Polyps or retention cysts in the maxillary sinuses Mastoid air cells: Visualized mastoid air cells are well aerated. Bones: Unremarkable. No acute fracture. Soft tissues: Unremarkable. IMPRESSION: No acute intracranial hemorrhage..
[2025-10-22 13:52] LABS: Bilirubin,Urine Negative (Negative); Color,Urine YELLOW (Yellow); Glucose,Urine (UA) Negative (Negative); Ketones,Urine Negative (Negative); Leukocyte Esterase,Urine Negative (Negative); PH,Urine 6.0 (5.0-8.5); Protein,Urine TRACE (Negative); Specific Gravity, Urine 1.015 (1.005-1.030); Urobilinogen,Urine 1.0 EU/dl (0.2)
[2025-10-22 14:12] LABS: D-Dimer 7.83 ug/mL (0.0-0.5)
[2025-10-22 14:21] LABS: Bacteria,Urine Trace /lpf; Squamous Epithelial Cell,Urine Occasional #/hpf (0-5); WBC,Urine Occasional #/hpf (0-3)
[2025-10-22] MEDS: IOPAMIDOL-370 (76%);100ML BOTTLE 200 ML IV (14:43)
[2025-10-22] MEDS: 0.9 % SODIUM CHLORIDE 50 ML VIAL 100 ML IV (14:43)
[2025-10-22] MEDS: SODIUM CHLORIDE 0.9% 10ML SYR (RAD ONLY) 10 ML IV (14:43)
[2025-10-22] MEDS: VANCOMYCIN/WATER FOR INJ (PEG) 1.25 GM/250 ML PIGGYBACK IV (16:02)
[2025-10-22] MEDS: VANCOMYCIN CONSULT REQUEST 1 EACH NOTAPPLIC (16:03)
[2025-10-22 16:14] LABS: Troponin I 0.40 ng/ml (0.00-0.034)
[2025-10-22 16:51] LABS: Reflex Lactic Add Lactic Reflex
[2025-10-22 17:20] LABS: Ammonia 17 umol/L (9-30)
[2025-10-22 17:39] LABS: Lactic Acid Follow Up (RFLX 1) 2.1 mmol/L (0.7-2.1)
--- NOTE | 2025-10-22 17:45 | PC.NURSE ---
called for transfer, called RAD for images to be [facility], Provider on the phone at this time with DR Clark
[2025-10-22 19:07] LABS: Reflex Lactic (2 hrs) Add Lactic Reflex
--- NOTE | 2025-10-22 19:29 | PC.NURSE ---
Pt unable to give sputum sample at this time. notified
--- NOTE | 2025-10-23 06:58 | PC.NURSE ---
Dr. Guerrier notified of positive blood culture results. Lad reported positive strep agalactiae gram positive cocci in both bottles. I called 7th floor and notified pt's nurse, MIYA Reveles at this time.
[2025-10-23 07:26] LABS: Acinetobacter calcoaceticus-ba Not Detected; Bacteroides fragilis Not Detected; Candida auris Not Detected; Candida glabrata Not Detected; Enterobacterales Not Detected; Enterococcus faecalis Not Detected; Enterococcus faecium Not Detected; Klebsiella aerogenes Not Detected; Klebsiella pneumoniae grp Not Detected; Proteus spp. Not Detected; Salmonella spp. Not Detected; Serratia marcescens Not Detected; Staphylococcus epidermidis Not Detected; Staphylococcus lugdunensis Not Detected; Staphylococcus spp. Not Detected; Stenotrophomonas maltophilia Not Detected; Streptococcus agalactiae(GrpB) Detected; Streptococcus pyogenes Group A Not Detected; Streptococcus spp. Detected
[2025-10-23 08:30] LABS: Acinetobacter calcoaceticus-ba Not detected; Bacteroides fragilis Not detected; Candida auris Not detected; Candida glabrata Not detected; Enterobacterales Not detected; Enterococcus faecalis Not detected; Enterococcus faecium Not detected; Klebsiella aerogenes Not detected; Klebsiella pneumoniae grp Not detected; Proteus spp. Not detected; Salmonella spp. Not detected; Serratia marcescens Not detected; Staphylococcus epidermidis Not detected; Staphylococcus lugdunensis Not detected; Staphylococcus spp. Not detected; Stenotrophomonas maltophilia Not detected; Streptococcus agalactiae(GrpB) Detected; Streptococcus pyogenes Group A Not detected; Streptococcus spp. Detected
[2025-10-23 08:31] LABS: Acinetobacter calcoaceticus-ba Not detected; Bacteroides fragilis Not detected; Candida auris Not detected; Candida glabrata Not detected; Enterobacterales Not detected; Enterococcus faecalis Not detected; Enterococcus faecium Not detected; Klebsiella aerogenes Not detected; Klebsiella pneumoniae grp Not detected; Proteus spp. Not detected; Salmonella spp. Not detected; Serratia marcescens Not detected; Staphylococcus epidermidis Not detected; Staphylococcus lugdunensis Not detected; Staphylococcus spp. Not detected; Stenotrophomonas maltophilia Not detected; Streptococcus pyogenes Group A Not detected
[2025-10-23 08:32] LABS: Streptococcus agalactiae(GrpB) Detected; Streptococcus spp. Detected
== END 2025-10-22 21:07 | disposition other institution (70) ==
PROVIDERS: Nurse Practitioner; Physician Assistant; Emergency Provider Student in an Organized Health Care Education/Training Program; PCP Family Medicine
DX: N17.9 Acute kidney failure, unspecified (principal); K72.90 Hepatic failure, unspecified without coma; E87.29 Other acidosis; R74.02 Elevation of levels of lactic acid dehydrogenase [LDH]; E87.5 Hyperkalemia; K76.6 Portal hypertension; R16.1 Splenomegaly, not elsewhere classified; I85.00 Esophageal varices without bleeding; D69.6 Thrombocytopenia, unspecified; D72.819 Decreased white blood cell count, unspecified; R41.82 Altered mental status, unspecified; B95.4 Other streptococcus as the cause of diseases classified elsewhere
CPT/HCPCS: 70450; 70496; 70498; 71275; 75635; 80053; 81001; 82140; 82550; 82803; 83605; 83690; 83735; 83880; 84484; 85007; 85025; 85378; 85384; 85610; 85651; 85730; 86140; 87040; 87077; 87086; 87154; 87186; 87636; 93005; 93970; 96365; 96366; 99285; 99291; J3375; Q9967